=== PATIENT | male | born 1955 | race Caucasian/White ===

== ENCOUNTER 2024-06-19 21:06 | Inpatient (IN) | payer MEDICARE, SELFPAY ==
[2024-06-19] VITALS (35 sets, daily range): BP systolic 73–153; BP diastolic 48–106; BMI 31.6
[2024-06-19 18:15] LABS: Glucose - Point of Care 182 mg/dl (70-99)
[2024-06-19] MEDS: ATIVAN 1 MG IV (18:22)
--- NOTE | 2024-06-19 18:24 | ED.GENMED ---
History of Present Illness
General
Chief Complaint: CODE
Source: patient and ambulance crew
Exam Limitations: clinical condition and altered mental status
Time Seen by Provider: 06/19/24 18:06
Nursing documentation reviewed up to this point in time: agreed with
History of Present Illness
History of Present Illness:
Patient presents to the Emergency Department after witnessed syncopal episode at work. Per paramedics, patient presented to local auto shop, where he immediately passed out. Patient had no complaints prior to passing out. CPR started immediately
by bystanders. 911 was called. When paramedics arrived at scene, patient was found to be in ventricular fibrillation rhythm. Patient was given 8 rounds of epi, 450 mg of amiodarone, and shocked x 7, with spiritism of pulse, and approximately 20
minutes after passing out. Upon arrival, patient is found to be unresponsive to verbal or physical stimuli. Unable to obtain any further information at this time.
Past History
Past History
ED Past Medical History: HTN
ED Past Surgical History: None
Social History
Tobacco: Non-smoker
Alcohol: Daily
Review of Systems
Review of Systems
Allergies reviewed?: Yes
Unable to obtain full review of systems at this time due to: intubated
All Other Systems: Not applicable
Phy Exam
Physical Exam
Physical Exam:
Physical Exam
General: unresponsive to verbal or physical stimuli. overweight
Head: nc/at.
Neck: supple. no meningeal signs. ETT in place.
Heart: s1/s2 regular rate and rhythm, no murmur. equal radial pulses.
Lungs: equal breath sounds while being bagged
Abdomen: normal bowel sounds. mild distention
Neuro: unresponsive. noted to move LUE spontaneously.
Skin: no rash. diaphoretic
Extremities: no edema.
Course
Orders/Labs/Results
Orders:
Orders
06/19/24 Breakfast
NPO
Allow oral meds: No
Allow clear liquids: No
NPO with Ice Chips: No
Comment: may receive medications via tube if ordered
06/19/24 18:05
Chest X-ray Portable [CR Chest Portable - 1 View] Urgent
Comment:
Reason For Exam: post cardiac arrest, intubation
Reason Study Needs to be Portable: Unable to Transport
06/19/24 18:07
Electrocardiogram (*1) Urgent
Reason for Study: Tachycardia
EKG- Treatment ONCE
06/19/24 18:18
Electrocardiogram (*1) Urgent
Reason for Study: Chest Pain
Cardiac Monitoring- Treatment ONCE
EKG- Treatment ONCE
IV Insert/Care/Rem.- Treatment PRN
O2 Therapy [RESP] Urgent
Titrate/Wean O2 to maintain O2 sat greater than (%): 90
Special Instructions: Maintain sats >/=90%
Pulse Ox/spot Check [RESP] Urgent
Quantity: 1
Special Instructions: ON ROOM AIR
06/19/24 18:20
ABO2 Urgent
BBK Wristband Number:
Associate notified that ABO2 has been ordered: [id number]
Date: 06/19/24
Time: 18:56
Poultry Farmer ID: [id number]
Complete Blood Count/With Diff Urgent
Comprehensive Metabolic Panel Urgent
Magnesium Urgent
Comment: ADD ON
NT-proBNP Urgent
Comment: ADD ON
PT/INR [Prothrombin Time] Urgent
Troponin I Urgent
06/19/24 18:21
CT Head W/o Iv Contrast Urgent
Comment:
Reason For Exam: mental status change
Cervical Spine wo Contrast CT [CT Cervical Spine W/o Iv Contr] Urgent
Comment:
Reason For Exam: truama
06/19/24 18:22
Lorazepam [Ativan] 1 mg IV NOW STA
06/19/24 18:27
Propofol 1,000,000 Mcg/100 ml [Diprivan] 1,000,000 mcg in 100 ml IV NOW
Indication:: Light Sedation
Begin Infusion:: Now
Goal:: RASS 0 to -2
Maximum dose in mcg/kg/min:: 50
Initial dose based on RASS:: Yes
If RASS is:: +1 or pt hemodynamically unstable (SBP < 90mmHg), initiate at 10 mcg/kg/min
If RASS is:: +2, initiate at 20 mcg/kg/min
If RASS is:: greater than or equal to +3, initiate at 30 mcg/kg/min
Titration Instructions:: Titrate by 5-10 mcg/kg/min every 5 minutes until RASS 0 to -2 achieved.
Taper Instructions:: If RASS is at or below goal for 4 consecutive hours decrease infusion by
Taper Instructions:: 5-10 mcg/kg/min every 2 hours to off.
Over-sedation Instructions:: If CPOT 0-2 (at goal) AND RASS -3 to -5 (below goal) decrease sedative by
Over-sedation Instructions:: 50% first. If pain score remains at goal and RASS remains below goal in
Over-sedation Instructions:: 1 hour, decrease opioid infusion by 50%.
Notify provider:: immediately if patient exhibits signs/symptoms of propofol-related
Notify provider:: infusion syndrome.
Additional Instructions:: Patient MUST be mechanically ventilated and MUST receive analgesia.
Vecuronium [place] [Norcuron] 10 mg IV NOW STA
06/19/24 18:38
Add On- LAB Urgent
Tests Added?: ProBNP and magnesium
06/19/24 18:45
Amiodarone [Cordarone] 900 mg DEXTROSE 5% PVC-free BAG [D5W PVC-free BAG] 500 ml IV PER PROTOCOL
Initial Dose in mg/min:: 1
Duration of initial dose (hours):: 6
Subsequent dose in mg/min:: 0.5
Duration of subsequent dose (hours):: 18
Maximum dose in mg/min:: 1
Hold and notify provider if:: Heart rate < 60 BPM or SBP < 90 mmHg or MAP < 60 mmHg
NORepinephrine 4 MG/250 ML [Levophed] 4 mg in 250 ml IV PER PROTOCOL
Initial dose in mcg/min, then titrate:: 10
Titrate to keep:: SBP > 90 mmHg
Titrate by mcg/min:: 1-2 mcg/min
Frequency of titrations (minutes):: 5
Maximum dose in ICU in mcg/min:: 30
Maximum dose in IMU in mcg/min:: 8
Maximum dose in IVU in mcg/min:: 4
Begin to taper infusion when:: Remained at goal for 4hrs
Taper by mcg/min:: 1-2 mcg/min
Frequency of taper (minutes) if patient maintains goal:: 30
Taper to off?: Yes
If infusion off & no longer maintaining goal:: Contact Provider
06/19/24 18:58
Arterial Blood Gas Urgent
%Oxygen/Room Air: 90
06/19/24 19:17
Heparin 4,000 units IV NOW STA
Nursing to Place Non Medication Order As Directed
Physician Order: PTT 6 hours after initial start of Heparin infusion
Above order entered?: Yes
06/19/24 19:23
Lactate Level [Lactic Acid] Urgent
PTT Urgent
Comment: Obtain baseline before beginning heparin infusion if not already collected
06/19/24 19:30
Heparin 48981 Units/250 ml 25,000 units in 250 ml IV PER PROTOCOL
Weight to be used for heparin protocol in kilograms (kg):: 93
Protocol:: Cardiac Tx/Acute Coronary
PTT Goal Range to be used:: PTT 73 to 111 seconds
Order type:: Initial
INITIAL Infusion Dose (UNITS/KG/hr) & then follow protocol:: 12 units/kg/hr
Infusion Dose in UNITS/hr & then follow protocol (UNITS/hr):: 1,000
INFUSION RATE in mL/hr & then follow protocol (mL/hr):: 10
PTT less than or equal to 64 seconds:: Increase rate by 200 units/hr (+ 2 mL/hr)
PTT 64.1 to 72.9 seconds:: Increase rate by 100 units/hr (+ 1 mL/hr)
PTT 73 to 111 seconds:: Target Range. No change in rate.
PTT 111.1 to 130.9 seconds:: Decrease rate by 100 units/hr (- 1 mL/hr)
PTT 131 to 199.9 seconds:: HOLD for 1 hr. Then decrease rate by 200 units/hr (- 2 mL/hr)
PTT greater than or equal to 200 seconds:: HOLD for 2 hrs & Notify Provider. Then decrease by 200 units/hr (-
2 mL/hr)
Lab follow-up:: Each change, PTT q6h until 2 consecutive are therapeutic. Then PTT
daily.
06/19/24 19:40
Magnesium Sulfate 1 grams 0.9% Sodium Chloride 100 ml [Nss] 100 ml IV NOW
06/19/24 19:54
Triglycerides Urgent
06/19/24 20:20
Admit/Transfer Patient As Directed
Co-Sign Provider:
Level of Care: Inpatient admission
Assign to:: ICU
Physician / Group: Son
Diagnosis: Cardiac Arrest
Reason for Hospitalization: Cardiac Arrest
Expected length of stay greater than two midnights?: Yes
ELOS- Estimated Length of Stay in days: 5
I certify the patient meets the requirements for IP care: Yes
PRN Pain Medication Management As Directed
May give lesser potent ordered pain med per pt: Yes
preference::
Protocol:: Medication orders for pain may be administered in a
manner that supports deferring to patient preference
when the pt is:
- Requesting an ordered lesser potent pain medication.
Least to most potent pain medications are defined
as: acetaminophen < NSAID < tramadol < opioids
(morphine, oxycodone, hydromorphone).
- Requesting a lesser dose of the same medication IF
ORDERED.
- Requesting a less intrusive route of administration
if both routes are prescribed by the provider (PO <
IV).
06/19/24 20:21
Code Status As Directed
Resuscitation Status: Full Code
06/19/24 20:25
Echo 2D MMode Color/Doppler Stat
Reason for Study: cardiac arrest
Ventilator Initial Settings [RESP] Stat
Special Instructions: wean FiO2 to 0.3 as tolerated to keep O2 sats > 92%
06/19/24 20:49
Propofol 1,000,000 Mcg/100 ml [Diprivan] 1,000,000 mcg in 100 ml .ROUTE .STK-MED
06/19/24 20:56
Type+Screen Urgent
Labels That Talk[employer] Wristband Number:
06/19/24 21:17
Lactic Acid Q6H
0.9% Sodium Chloride 500 ml [Nss] 500 ml IV Q30M
Acetaminophen [Tylenol Oral Solution] 650 mg TUBE NOW STA
Acetaminophen [Tylenol/Feverall] 650 mg RECTAL Q6HPRN PRN
Buspirone [Buspar] 30 mg TUBE NOW STA
FOLic ACID [Folvite] 1 mg 0.9% Sodium Chloride 50 ml [Nss] 50 ml IV DAILYPRN
FentaNYL 1,000 MCG/100 ML [Sublimaze] 1,000 mcg in 100 ml IV PER PROTOCOL
Indication:: TTM Shivering Prot Step 2
Begin Infusion:: Other
Begin infusion when:: BSAS >/= 1 15 minutes after indicated step 1 bolus
Goal:: BSAS = 0, pain score </= 1, CPOT 0-2
Maximum dose in mcg/hr:: 300
Initial Dose in mcg/hr:: 25
Initial dose other:: initiate at dose indicated above OR titrate dose by 25 mcg/hr
Titration Instructions:: Titrate every 30 minutes if patient exhibits shivering (BSAS >/= 1) or
Titration Instructions:: signs of pain/discomfort (pain score >/= 2, CPOT >/= 3).
Titration Instructions:: Administer bolus dose and titrate by 25 mcg/hr.
Titration Instructions:: if BSAS >/= 1 30 minutes after beginning infusion with boluses,
Titration Instructions:: Proceed to Step 3. Continue to up titrate fentanyl as needed.
Taper Instructions:: If shivering and pain scores are at goal for 4 consecutive hours (BSAS = 0,
Taper Instructions:: pain score </= 1, CPOT 0-2): Decrease dose by 50 mcg/hr every 2 hours.
Taper Instructions:: When dose </= 50 mcg/hr may turn infusion off and consider as needed
Taper Instructions:: intermittent bolus doses only.
Notify provider:: immediately if pt exhibits: chest wall rigidity, hemodynamic instability,
Notify provider:: agitation/pain despite maximum dosing, pain when RASS below goal.
Additional Instructions:: if receiving sedation continue to up titrate analgesia first when available
Additional Instructions:: Patient MUST be mechanically ventilated.
Fentanyl Citrate/Pf [Sublimaze] 50 mcg IV [id number] PRN
Propofol 1,000,000 Mcg/100 ml [Diprivan] 1,000,000 mcg in 100 ml IV PER PROTOCOL
Indication:: TTM Shivering Prot Step 3
Begin Infusion:: Other
Begin infusion when:: BSAS >/= 1 30 minutes after beginning Fentanyl infusion with boluses
Goal:: BSAS 0 or RASS 0 to -2
Maximum dose in mcg/kg/min:: 50
Initial Dose in mcg/kg/min:: 10
Initial dose other:: Initiate at dose indicated above OR titrate dose by 5-10 mcg/kg/min
Titration Instructions:: Titrate by 5-10 mcg/kg/min every 5 minutes until BSAS 0 or RASS 0 to -2.
Titration Instructions:: when available, up titrate analgesia first.
Titration Instructions:: If BSAS >/=1 despite Propofol at maximum tolerated dose, proceed to Step 4.
Taper Instructions:: If BSAS or RASS is at or below goal for 4 consecutive hours decrease
Taper Instructions:: dose by 5-10 mcg/kg/min every 2 hours.
Over-sedation Instructions:: If CPOT 0-2 (at goal) AND RASS -3 to -5 (below goal) decrease sedative by
Over-sedation Instructions:: 50% first. If pain score remains at goal and RASS remains below goal in
Over-sedation Instructions:: 1 hour, decrease opioid infusion by 50%.
Notify provider:: immediately if patient exhibits signs/symptoms of propofol-related
Notify provider:: infusion syndrome.
Additional Instructions:: Patient MUST be mechanically ventilated.
Vecuronium [place] [Norcuron] 9 mg IV Q1HPRN PRN
Vecuronium [place] [Norcuron] 60 mg 0.9% Sodium Chloride 250 ml [Nss] 190 ml IV PER PROTOCOL
06/19/24 21:17
Electrocardiogram (*1) Urgent
Reason for Study: Other
Other Reason for Exam: cardiac arrest
CARDIOLOGY CONSULT Routine
Consulting Provider: Sai Steve
Was physician already notified: Yes
Reason for consult: Cardiac Arrest
Case Management Consult Once
Case Management Consult: Discharge Planning
Case Management Consult Once
Case Management Consult: Other
Comment: Substance abuse counseling
DIETARY CONSULT Routine
Reason for Consult: Nutrition support, possible refeeding guidelines
Video Systems Engineer Consult Urgent
Consulting Provider: Thai Farnsworth
Was physician already notified: Yes
Reason for consult: Cardiac Arrest
NEUROLOGY CONSULT Routine
Consulting Provider: Sajan Adamson
Was physician already notified: Yes
Reason for consult: Cardiac Arrest
EEG Routine Routine
Reason for Exam: change in mental status
HCG, Urine Qualitative Screen Urgent
Comment: if female and less than 65 years old
Prealbumin (Transthyretin) Routine
Triglycerides Routine
Comment: baseline levels with propofol infusion
Urinalysis Routine
Heparin Protocol- PTT Orders As Directed
PTT per Heparin protocol: -Obtain CBC and baseline PTT - if not already collected.
-Obtain PTT 6 hours from start of infusion. Then, every 6 hours until 2 consecutive
PTT's are therapeutic. Then, PTT Daily.
-With each rate change, obtain PTT every 6 hours until 2 consecutive PTT's are
therapeutic. Then, PTT Daily.
Activity As Directed
Activity Level: Bedrest
Comment: obtain Sport bed, Maintain HOB 30 degrees
Arterial Line As Directed
Bedside Glucose Monitoring As Directed
Frequency: Other frequency
Other frequency: Q1 hour x 4 hours
Additional Instructions:: Contact provider to initiate Critical Care Glycemic Protocol:
- if glucose is greater than or equal to 160 mg/dL for 2 consecutive checks
OR
- if glucose is greater than or equal to 180 mg/dL once:
Catheter- Indwelling As Directed
Reason for insertion: I&O's Critical Care
Comment: temperature sensing Campos catheter with hourly urine output
Central Line As Directed
Comment: do not use central line for cold fluids
EKG with chest pain [ECG as needed] As Directed
ECG as needed for:: Chest Pain
Gastric Lavage As Directed
Route: Nasogastric Tube/ Orogastric Tube
Irrigant: Purified/Distilled Water
Amount in mls: 250-500ml iced water
Remove irrigant after __min: 10
Gastric lavage directions: - Chilled gastric lavage: instill 250-500mL iced water, clamp for 10-15 minutes
then connect gastric tube to suction.
- Repeat for total volume of 30mL/kg. Maximum 3 liters
- Discontinue once TTM device is initiated
Gastrointestinal Tubes As Directed
Type: [place] sump
To suction?: Yes
Type of suction: Low intermittent
Irrigate tube?: Yes
Irrigant: Tap Water
Frequency: Q4H
Amount in mls: 30
Irrigation Directions: Irrigate Q4H and PRN
Comment: insert nasogastric or orogastric tube
Head of Bed-Restrictions As Directed
Elevation Level: 30 degress
Frequency: At all times
INT (Intravenous Needle Therapy) As Directed
Comment: peripheral IV required, consider 2 peripheral IV lines
Intake/ Output As Directed
Frequency: q1h
Comment: hourly urine output
MSAS SCORE As Directed
MSAS Score 0-4: Repeat MSAS every 2 hours until 0-4 for three consecutive assessments, then every 4 hours x 48
hours.
MSAS Score 5-7: For MILD withdrawl symptoms. Repeat MSAS and RASS every 2 hours
MSAS Score 8-11: For MODERATE withdrawal symptoms. Repeat MSAS and RASS every 1 hour. Consider ICU or IMU
level of care.
MSAS Score > 11: For SEVERE withdrawal symptoms. Repeat MSAS and RASS every 1 hour. Notify provider, consider
ICU level of care.
MSAS Additional Instructions: If no improvement or no decrease in score from severe to moderate within 12
hours, consult psychiatry
MSAS Notify Provider: Notify provider if patient requires more than 10 mg of Lorazepam in eight hour period.
Neurological Checks As Directed
Frequency: q4h
Additional Instructions:: Obtain baseline, then every 4 hours
Notify MD As Directed
Notify physician if: BSAS >=1 despite maximum tolerated dose of propofol and proceeding to step 4 of shivering
protocol to change pain and sedation orders to deep sedation protocol and discontinue
current Fentanyl and Propofol orders.
Notify MD As Directed
Notify physician if: PTT is greater than or equal to 200.
Notify MD As Directed
Notify physician if: serum magnesium less than 3.0 mg/dL
Nursing to Place Non Medication Order As Directed
Physician Order: ABG every 12 hours x [address] Non Medication Order As Directed
Physician Order: order each lab below for Urgent every 6 hours x 6
CBC with Diff
Complete Metabolic Panel
Magnesium
Phosphorus
CK
CKMB
Troponin
Lactate
Pneumatic Compression Sleeves As Directed
Type: Knee high
Comment: bilateral
Pre-induction Neuromuscular Assessment As Directed
Pre-induction Neuromuscular Assessments: -Confirm Louis Agitation Sedation Scale (RASS) of -3 to -5
-Document:
--GSC ([place] Coma Scale)
--Corneal reflex
--Train of four
Test Result ONCE
Shivering Protocol for Targeted Temperature Management As Directed
Instructions:: Use stepwise approach for management of shivering.
Bedside shivering assessment score (BSAS) frequency:: Q 30 minutes until target temperature achieved then Q 1
hour and PRN
Step 1:: Fentanyl or Meperidine intermittent bolus doses
If BSAS >=/ 1 15 minutes after bolus(es), proceed to Step 2.
Step 2:: Begin/increase Fentanyl infusion + continue Fentanyl boluses
If BSAS >/= 1 after 2 analgesic bolus doses and Fentanyl infusion on for 30 minutes,
proceed to Step 3.
Step 3:: Begin Propofol infusion + continue Fentanyl infusion + Fentanyl boluses
If BSAS >=/1 despite Propofol at maximum tolerated dose, proceed to Step 4.
Step 4:: NMBA intermittent bolus doses.
Contact provider to update pain and sedation orders/obtain orders for DEEP SEDATION.
If BSAS >/= 1 after 2 NMBA bolus doses within 3 hours, proceed to Step 5.
Step 5:: Begin NMBA infusion + continue NMBA boluses + deep sedation.
Continuous IV analgesia and sedation must be ordered.
Additional Instructions:: When beginning Step 4 (NMBA bolus doses), obtain orders for DEEP SEDATION and
discontinue Fentanyl and Propofol orders from steps 1, 2, and 3.
Skin Care As Directed
Type of Skin Care: skin checks every 2 hours
Specialty Mattress As Directed
Type of Mattress: Other
Other type of speciality mattress: Sport Bed
Targeted Temperature Management Cooling Phase As Directed
Goal Temp:: 96.8 F (36 C)
Directions: - Wrap patient in surface cooling pads and attach to temperature management device.
- Maintain patient at goal temperature for 24 hours.
- Once device is initiated, discontinue use of cooled fluids and gastric lavage unless directed to
continue.
Targeted Temperature Management Normothermia Phase As Directed
Active Normothermia Instructions:: Maintain surface cooling device and set temperature to 97.4 F for 48 hours
post rewarming.
Targeted Temperature Management Rewarming Phase As Directed
Rewarming Directions:: -Increase temp by 0.33 degrees F every hour per automatic rewarming mode until temp
reaches 97.4 degrees F
-If using continuous NMBA, turn off when temperature reaches 97.0 degrees F
-Once normothermia target temperature is achieved, wean sedation to maintain a RASS
level of 0 to -2, refer to Pain, Agitation, Sedation guidelines
-Discontinue previous serial labs then
-CMP, CBC, Mag, Phos, and Lactate every 4 hours x 6
-Stop electrolyte replacement 6 hours prior to rewarming (unless electrolyte levels
critical)
Vital Signs As Directed
Frequency: Other
Additional Instructions:: q30min x4 then q1h including core temp via TTM device
Weight As Directed
Frequency: Daily
DX Deep Vein Thrombosis Video Routine
06/20/24 00:00
Acetaminophen [Tylenol Oral Solution] 650 mg TUBE Q6
Buspirone [Buspar] 30 mg TUBE Q8
Thiamine Injection 200 mg IV Q8
06/20/24 02:27
Protime/PTT Urgent
Is the patient on Heparin?: Yes
06/20/24 03:17
Lactic Acid Q6H
06/20/24 06:00
Magnesium IN AM
NT-proBNP IN AM
PTT IN AM
Prealbumin (Transthyretin) IN AM
Prothrombin Time IN AM
CR Chest Portable - 1 View DAILY
Comment:
Reason For Exam: cardiac arrest
Reason Study Needs to be Portable: Patient Unstable
06/20/24 08:00
Carboxymethylcellulose [Refresh Celluvisc Gel] 1 drops OPHTH BID
FOLic ACID [Folvite] 1 mg PO DAILY
Pantoprazole [Protonix IV] 40 mg IV DAILY
06/20/24 09:17
Lactic Acid Q6H
06/20/24 15:17
Lactic Acid Q6H
06/21/24 06:00
Complete Blood Count/No Diff Q2D
Comment: notify provider: Platelet count < 130,000 or decrease by 50% from baseline
NT-proBNP IN AM
PTT IN AM
Prealbumin (Transthyretin) IN AM
Prothrombin Time IN AM
CR Chest Portable - 1 View DAILY
Comment:
Reason For Exam: cardiac arrest
Reason Study Needs to be Portable: Patient Unstable
06/22/24 06:00
NT-proBNP IN AM
PTT IN AM
Prealbumin (Transthyretin) IN AM
Prothrombin Time IN AM
Triglycerides Q3D
Comment: every 72 hours while patient is on propofol
CR Chest Portable - 1 View DAILY
Comment:
Reason For Exam: cardiac arrest
Reason Study Needs to be Portable: Patient Unstable
06/23/24 06:00
Complete Blood Count/No Diff Q2D
Comment: notify provider: Platelet count < 130,000 or decrease by 50% from baseline
06/23/24 08:00
Thiamine HCl [Vitamin B1] 100 mg PO BID
06/25/24 06:00
Complete Blood Count/No Diff Q2D
Comment: notify provider: Platelet count < 130,000 or decrease by 50% from baseline
Triglycerides Q3D
Comment: every 72 hours while patient is on propofol
06/27/24 06:00
Complete Blood Count/No Diff Q2D
Comment: notify provider: Platelet count < 130,000 or decrease by 50% from baseline
06/28/24 06:00
Triglycerides Q3D
Comment: every 72 hours while patient is on propofol
06/29/24 06:00
Complete Blood Count/No Diff Q2D
Comment: notify provider: Platelet count < 130,000 or decrease by 50% from baseline
07/01/24 06:00
Complete Blood Count/No Diff Q2D
Comment: notify provider: Platelet count < 130,000 or decrease by 50% from baseline
07/03/24 06:00
Complete Blood Count/No Diff Q2D
Comment: notify provider: Platelet count < 130,000 or decrease by 50% from baseline
07/05/24 06:00
Complete Blood Count/No Diff Q2D
Comment: notify provider: Platelet count < 130,000 or decrease by 50% from baseline
Abnormal Lab Results
06/19/24 06/19/24 06/19/24
18:04 18:20 18:58
WBC 19.0 H 10^3/uL
(4.8-10.8)
RBC 4.58 L 10^6/uL
(4.70-6.10)
MCV 102.0 H fL
(80.0-94.0)
MCH 34.3 H pg
(27.0-31.0)
MPV 11.6 H fL
(7.4-10.4)
Abs Immat Gran (auto) 0.8 H 10^3/uL
(0-0.05)
Absolute Neuts (auto) 11.9 H 10^3/uL
(1.4-6.5)
Absolute Lymphs (auto) 5.2 H 10^3/uL
(1.2-3.4)
Immature Gran % 4.2 H %
(0-0.5)
PT 18.7 H Sec
(11.4-14.6)
pH 7.16 L*
(7.35-7.45)
pCO2 70 H mmHg
(35-48)
pO2 72 L mmHg
(83-108)
ABG O2 Sat (Measured) 91.7 L %
(94-98)
Chloride 97 L mmol/L
(98-107)
Glucose 244 H mg/dl
(70-99)
Lactic Acid
Magnesium 1.1 L mg/dl
(1.6-2.3)
Total Bilirubin 1.6 H mg/dl
(0.2-1.3)
AST 339 H U/L
(17-59)
ALT 157 H U/L
(0-50)
Troponin I 0.064 H* ng/ml
Triglycerides
POC Glucose 182 H mg/dl
(70-99)
06/19/24 06/19/24
19:23 19:54
WBC
RBC
MCV
MCH
MPV
Abs Immat Gran (auto)
Absolute Neuts (auto)
Absolute Lymphs (auto)
Immature Gran %
PT
pH
pCO2
pO2
ABG O2 Sat (Measured)
Chloride
Glucose
Lactic Acid 4.9 H* mmol/L
(0.7-2.0)
Magnesium
Total Bilirubin
AST
ALT
Troponin I
Triglycerides 170 H mg/dl
(10-149)
POC Glucose
06/19/24 18:20
06/19/24 18:20
Vital Signs
Initial and Last Documented VS:
Initial Vital Signs
Pulse Resp BP Pulse Ox
85 18 120/85 89
06/19/24 18:11 06/19/24 18:11 06/19/24 18:11 06/19/24 18:11
Last Documented Vital Signs
Temp Pulse Resp BP Pulse Ox
96.8 F L 100 21 147/66 94
06/19/24 19:14 06/19/24 20:45 06/19/24 20:45 06/19/24 20:45 06/19/24 20:45
Procedures
Central Line
Right Femoral:
Indication for procedure:: Cooling protocol
Procedure completed by: Da Gutierrez M.D.
Consent form signed: No
If no, reason: Emergency procedure
Central line lumen: triple
Number of attempts: 1
Central line complications: none
Sterile dressing applied?: Yes
MDM/Problems Addressed
MDM/Problems Addressed:
Accu-Chek noted.
Initial EKG upon arrival does not indicate ST elevation. Discussed with on-call Speech And Hearing Director attending, Dr. Francois. Does not feel the patient requires urgent cardiac catheterization. Recommends medical evaluation treatment, including potential heparin
protocol, if initial CT head does not indicate acute bleed.
Patient sedated with Ativan and propofol infusion, as well as rocuronium.
CT head: no acute findings.
Pt will be admitted to ICU for further evaluation and treatment.
Pt evaluated by admitting hospitalist - request central line placement, per cooling protocol.
Critical care statement: A total of 60 minutes of critical care time was provided for this patient. This includes management of unstable vital signs, evaluation of the patient at bedside, reviewing the patient's pertinent medical records, discussion
with consultants, review of old EKGs and review of pertinent medical records. This time with separate from time utilized to perform the aforementioned documented procedures
*Critical Care Note
Total Time (30-74mins, 75-104mins- exclusive of procedures): 60 min
ED Attending Note
-
Portions of this chart may have been created with voice recognition software.� Occasional wrong word or��sound alike� substitutions may have occurred due to the inherent limitations of voice recognition software.
Discharge Plan
Departure
Patient Disposition: Admit
Date of Disposition: 06/19/24
Time of Disposition: 18:39
Admit to: ICU
Presentation/result/management discussed w/ accepting MD/DO: Hospitalist
Discharge Problem:
Cardiac arrest with ventricular fibrillation
Interventions
Interventions:
*Risk Screen - Suicide Last Done: 06/19/24 19:04
*General Assessment Last Done: 06/19/24 19:04
*Neglect/Abuse Screening Last Done: 06/19/24 19:04
*ED COVID-19 Vaccine History Last Done: 06/19/24 19:04
ED- Cardiac Assessment Last Done: 06/19/24 19:04
ED- Pulmonary Assessment Last Done: 06/19/24 19:04
[2024-06-19 18:30] LABS: % Basophils 0.6 % (0-2); % Eosinophils 1.7 % (0-6); % Immature Granulocytes 4.2 % (0-0.5); % Lymphocytes 27.6 % (20.5-51.1); % Monocytes 3.2 % (1.7-9.3); % Neutrophils 62.7 % (42.2-75.2); Absolute Basophils 0.1 10^3/uL (0-0.2); Absolute Eosinophils 0.3 10^3/uL (0-0.7); Absolute Immature Granulocytes 0.8 10^3/uL (0-0.05); Absolute Lymphocytes 5.2 10^3/uL (1.2-3.4); Absolute Monocytes 0.6 10^3/uL (0.1-0.6); Absolute Neutrophils 11.9 10^3/uL (1.4-6.5); Hematocrit 46.7 % (39.0-52.0); Hemoglobin 15.7 g/dL (13.0-18.0); Mean Corp Hgb Conc. 33.6 g/dL (33.0-37.0); Mean Corpuscular Hgb 34.3 pg (27.0-31.0); Mean Platelet Volume 11.6 fL (7.4-10.4); Nucleated Red Blood Cells % 0.2 % (-); Platelet Count 162 10^3/uL (130-400); Red Blood Cell Count 4.58 10^6/uL (4.70-6.10); Red Cell Dist. Width 12.2 % (11.5-14.5)
[2024-06-19] MEDS: DIPRIVAN 100 IV (18:30)
[2024-06-19] MEDS: NORCURON 10 MG IV (18:31)
[2024-06-19 18:36] LABS: INR 1.58; PT 18.7 Sec (11.4-14.6)
[2024-06-19] MEDS: LEVOPHED 250 IV ×2 (18:40→23:10)
--- NOTE | 2024-06-19 18:57 | PHANOTE ---
med rec tech(06/19/24)-patient unable to be interviewed, used [facility] and [facility] to create and confirm medication list.
[2024-06-19 19:00] LABS: ALT (SGPT) 157 U/L (0-50); AST (SGOT) 339 U/L (17-59); Albumin 4.1 g/dl (3.5-5.0); Alkaline Phosphatase 101 U/L (38-126); Blood Urea Nitrogen 10 mg/dl (9-20); Carbon Dioxide 24 mmol/L (22-30); Chloride 97 mmol/L (98-107); Glucose 244 mg/dl (70-99); Potassium 3.6 mmol/L (3.5-5.1); Sodium 142 mmol/L (135-145); Total Bilirubin 1.6 mg/dl (0.2-1.3); eGFR > 60.00
[2024-06-19 19:08] LABS: B.E. -5.5 mmol/L; O2 Saturation % 91.7 % (94-98); PCO2 70 mmHg (35-48); PO2 72 mmHg (83-108)
[2024-06-19 19:12] LABS: pH 7.16 (7.35-7.45)
[2024-06-19 19:17] LABS: Troponin I 0.064 ng/ml
[2024-06-19] MEDS: CORDARONE 518 MG IV (19:45)
[2024-06-19 19:51] LABS: APTT 32.6 Sec (23.4-35.0)
[2024-06-19 19:54] LABS: Magnesium 1.1 mg/dl (1.6-2.3)
[2024-06-19 19:56] LABS: Lactic Acid 4.9 mmol/L (0.7-2.0)
[2024-06-19] MEDS: MAGNESIUM SULFATE 102 GRAMS IV (20:04)
[2024-06-19 20:10] LABS: NT-proBNP 84.4 pg/ml
[2024-06-19 20:26] LABS: Triglycerides 170 mg/dl (10-149)
[2024-06-19] MEDS: HEPARIN 25000 UNITS/250 ML IV (20:26)
[2024-06-19] MEDS: HEPARIN 4000 UNITS IV (20:27)
--- NOTE | 2024-06-19 20:33 | HPS.HSE ---
Family Physician
-
Family Physician: [facility]
Chief Complaint
-
Cardiac Arrest
History of Present Illness
Patient is a 69y M with PMH significant for A-Fib, prostate cancer and alcohol use disorder who presents to ED after witnessed nqe-dk-xvdtrkor cardiac arrest. History obtained from ED staff and family at the bedside. 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 A bystander was a nurse and promptly started CPR. 911 was called and on EMS arrival patient was noted to be in ventricular fibrillation. ACLS was provided including 8 rounds of epinephrine
and 7 shocks. ROSC achieved approximately 20 minutes after initial collapse. Patient was brought to the ED for further evaluation and treatment.
At the time of my examination in the ED, patient is unresponsive on propofol, levophed and amiodarone infusion.
states that patient has complained of increased heartburn recently.
He has had some discomfort / swelling in the legs and has been sleeping with them elevated.
No reported chest pain, palpitations, SOB, etc.
No recent cough, fevers / chills, GI symptoms, etc.
No prior history of ME, CVA, etc.
Medical History
Past Medical History
Past Medical History: Reports Other
Additional Past Medical History:
Atrial Fibrillation
Hypertension
Long QT Syndrome
Prostate Cancer
Obesity
Past Surgical History: Reports Other
Additional Past Surgical History:
Prostatectomy
Appendectomy
Knee Arthroscopy
Social History
Tobacco: Former Smoker (Quit smoking 35 years ago. Approx 15 pack years total use.)
Alcohol: Daily (Drinks vodka daily. is not certain of amount, but significant intake daily.)
Drug: None
Personal:
Living: With Family
Family History
Family History: Other (Father: CAD, Lung Cancer Mother: Lung Cancer)
Allergies / Home Medications
Allergies reflects when Allergies were last updated in [employer].
Home Medications with original date entered in [employer]
Allergy/Medication List:
Allergies
Allergy/AdvReac Type Severity Reaction Status Date / Time
No Known Allergies Allergy Unverified 04/19/23 15:30
Home Medications
metoprolol succinate 25 mg tablet,extended release 24 hr 25 mg PO DAILY #30 tabs 04/20/23
magnesium oxide 600 mg PO DAILY 06/19/24
rivaroxaban 20 mg tablet (Xarelto) 20 mg PO DAILY 06/19/24
therapeutic multivitamin 1 tab PO DAILY 06/19/24
Review of Systems
-
Unable to obtain full review of systems at this time due to: Patient Intubation
Physical Exam
Vital Signs
Vital Signs
Temp Pulse Resp BP Pulse Ox
96.8 F L 91 18 73/48 96
06/19/24 19:14 06/19/24 19:46 06/19/24 19:46 06/19/24 19:46 06/19/24 19:10
Physical Exam
General: Other (69y M unresponsive on ventilator.)
HEENT: Other (ETT and OGT in place. Scant bloody sputum in ETT tubing. Thick neck. No appreciable JVD.)
Respiratory: Other (Decreased BS bilaterally.)
Cardiac: S1/S2 and Regular Rhythm; No Murmur
GI: Non Tender, Non Distended, Normal Bowel Sounds and Other (Obese)
Musculoskeletal: No Clubbing, No Cyanosis and No Edema
Neuro: Sedated
Laboratory Results
-
06/19/24 18:20
06/19/24 18:20
Laboratory Results
PT 18.7 Sec (11.4-14.6) H 06/19/24 18:20
INR 1.58 06/19/24 18:20
APTT 32.6 Sec (23.4-35.0) 06/19/24 19:23
pH 7.16 (7.35-7.45) L* 06/19/24 18:58
pCO2 70 mmHg (35-48) H 06/19/24 18:58
pO2 72 mmHg (83-108) L 06/19/24 18:58
HCO3 25.0 mmol/L (21-28) 06/19/24 18:58
Lactic Acid 4.9 mmol/L (0.7-2.0) H* 06/19/24 19:23
Total Bilirubin 1.6 mg/dl (0.2-1.3) H 06/19/24 18:20
AST 339 U/L (17-59) H 06/19/24 18:20
ALT 157 U/L (0-50) H 06/19/24 18:20
Alkaline Phosphatase 101 U/L (38-126) 06/19/24 18:20
Troponin I 0.064 ng/ml H* 06/19/24 18:20
Impression/Plan
-
A/P: 69y M with PMH significant for A-Fib and alcohol use disorder who presents to ED after hey-il-zebwwway arrest.
Cardiac Arrest
Ventricular Fibrillation
History of Prolonged QT
Lactic Acidosis secondary to the above
- Admit to ICU for further evaluation and treatment.
- Vent support, sedation if needed, pressor support if needed.
- IV Amiodarone protocol.
- Targeted temperature management protocol.
- Follow for cognitive recovery after re-warming.
- Line Assembler and Neurology evaluations for additional recommendations.
- Differential etiology of arrest includes acute ischemia / CAD, arrhythmia due to long QT, etc.
ACS
- No STEMI on initial EKG. Troponin minimally elevated after arrest, CPR, defibrillations, etc.
- IV heparin for now.
- Cardiology evaluation as noted above.
- Will benefit from eventual ischemic evaluation depending on recovery process.
Pulmonary Edema
- Noted on CXR and CT neck.
- Patient will likely benefit from diuresis once hemodynamically more stable.
- Check Echo.
- Cardiology eval as noted above.
Paroxysmal Atrial Fibrillation
- Currently in sinus rhythm with 1st degree AV block.
- Hold Xarelto acutely - on IV heparin for now.
- Monitor on telemetry.
- On IV Amio at present. Add rate-control agents if needed.
Alcohol Use Disorder
Hypomagnesemia
- reports significant daily EtOH intake.
- No history of withdrawal syndromes, seizures, etc.
- Currently on propofol.
- Follow MSAS - any withdrawal symptoms should be controlled with current sedation, cooling regimen, etc.
- Follow and replace electrolytes as needed.
History of Prostate Cancer
- s/p prostatectomy
- Campos in place.
DVT Prophylaxis: On IV Heparin
Code Status: Full
[2024-06-19] MEDS: SUBLIMAZE 100 IV (22:00)
--- NOTE | 2024-06-19 22:00 | PTCARENOTE ---
Pt. arrived to ICU from ED intubated on ventilator. TTM protocol initiated immediately upon arrival to ICU. Pt. arrived to ICU on propofol gtt (step 3 of shivering protocol). Unresponsive. Core temp 98.6. Arctic Sun set to goal of 96.8. Pt.
currently in sinus rhythm. Amiodarone an heparin drips infusing. Levophed gtt infusing for BP support. Pt. currently on ventilator. Ventilator settings verified. Lungs sound crackly at bases. Pt. has OG tube to LIS. Campos catheter in place. No open
wounds on patient's skin noted. Legs appeared mottled. Discussed plan of care with patient's family. Vital signs stable at this time.
[2024-06-19 22:02] LABS: Glucose - Point of Care 211 mg/dl (70-99)
[2024-06-19] MEDS: BUSPAR 30 MG TUBE (22:22)
[2024-06-19] MEDS: TYLENOL ORAL SOLUTION 650 MG TUBE (22:22)
[2024-06-19] MEDS: NOVOLIN R 4 UNITS IV (22:54)
[2024-06-19] MEDS: NOVOLIN R INSULIN INFUSION 100 IV (22:55)
[2024-06-19 23:01] LABS: Glucose - Point of Care 223 mg/dl (70-99)
--- NOTE | 2024-06-19 23:08 | W.PN.UPDATE ---
Update Note
Progress Note Update
Procedure Note: Arterial Line�
� Right Wrist Arrow 20 (10/31)�
Diagnosis:��VFIB, cardiac arrest
IV Line Comments: Uneventful Procedure�
Jimmie's test completed pre-procedure: Yes�
A-Line Comments: Sterile technique as per standard protocol, Ultrasound guided insertion�
Functioning A-line in situ: Yes�
A-line Insertion Start Time:��0
A-line in at:��2210
[2024-06-19 23:11] LABS: Creatine Phosphokinase 127 U/L (55-170); Phosphorus 6.7 mg/dl (2.5-4.5)
[2024-06-19 23:33] LABS: CKMB 2.2 ng/ml (0.0-2.4)
[2024-06-20] VITALS (17 sets, daily range): BP systolic 74–161; BP diastolic 67–122; PULSE 2–92; BMI 33.5
[2024-06-20 00:02] LABS: B.E. -4.5 mmol/L; HCO3 21.1 mmol/L (21-28); PCO2 40 mmHg (35-48); PO2 231 mmHg (83-108); pH 7.33 (7.35-7.45)
[2024-06-20 00:03] LABS: O2 Therapy 80&
[2024-06-20 00:17] LABS: Lactic Acid 3.3 mmol/L (0.7-2.0)
[2024-06-20 00:25] LABS: Glucose - Point of Care 221 mg/dl (70-99)
[2024-06-20] MEDS: TYLENOL ORAL SOLUTION 650 MG TUBE ×3 (00:28→12:24)
[2024-06-20] MEDS: THIAMINE INJECTION 200 MG IV ×3 (00:28→16:37)
[2024-06-20] MEDS: BUSPAR 30 MG TUBE (00:28)
--- NOTE | 2024-06-20 00:30 | PTCARENOTE ---
Pt. remains on levophed infusion. Blood pressure boarderline of goal. Spoke to LANDSCAPE ENGINEER, will possibly add another vasopressor. Pt. started on glycemic protocol for blood glucose >180. TTM goal reached at 23:20.
[2024-06-20 00:38] LABS: % Basophils 0.4 % (0-2); % Immature Granulocytes 0.7 % (0-0.5); % Lymphocytes 1.9 % (20.5-51.1); % Monocytes 2.4 % (1.7-9.3); % Neutrophils 94.6 % (42.2-75.2); Absolute Basophils 0.1 10^3/uL (0-0.2); Absolute Immature Granulocytes 0.2 10^3/uL (0-0.05); Absolute Lymphocytes 0.5 10^3/uL (1.2-3.4); Absolute Monocytes 0.6 10^3/uL (0.1-0.6); Absolute Neutrophils 23.2 10^3/uL (1.4-6.5); Hematocrit 42.6 % (39.0-52.0); Mean Corp Hgb Conc. 35.2 g/dL (33.0-37.0); Mean Corpuscular Volume 96.6 fL (80.0-94.0); Mean Platelet Volume 11.4 fL (7.4-10.4); Nucleated Red Blood Cells % 0 % (-); Platelet Count 173 10^3/uL (130-400); Red Blood Cell Count 4.41 10^6/uL (4.70-6.10); Red Cell Dist. Width 12.3 % (11.5-14.5); White Blood Cell Count 24.6 10^3/uL (4.8-10.8)
[2024-06-20 01:03] LABS: Prealbumin (Transthyretin) 17.3 mg/dl (17.6-36.0)
[2024-06-20 01:13] LABS: ALT (SGPT) 147 U/L (0-50); AST (SGOT) 368 U/L (17-59); Albumin 3.8 g/dl (3.5-5.0); Alkaline Phosphatase 93 U/L (38-126); Blood Urea Nitrogen 17 mg/dl (9-20); Calcium 8.6 mg/dl (8.4-10.2); Carbon Dioxide 18 mmol/L (22-30); Chloride 99 mmol/L (98-107); Estimated Creatinine Clearance 62 ml/min; Glucose 209 mg/dl (70-99); Magnesium 1.1 mg/dl (1.6-2.3); Phosphorus 3.8 mg/dl (2.5-4.5); Potassium 3.1 mmol/L (3.5-5.1); Sodium 137 mmol/L (135-145); Total Bilirubin 1.9 mg/dl (0.2-1.3); Total Protein 6.5 g/dl (6.3-8.2); eGFR > 60.00
[2024-06-20 01:14] LABS: Total CK 948 U/L (55-170)
[2024-06-20] MEDS: DIPRIVAN 100 IV ×2 (01:17→06:21)
[2024-06-20] MEDS: ADRENALIN 250 IV (01:18)
[2024-06-20 01:24] LABS: Glucose - Point of Care 180 mg/dl (70-99)
[2024-06-20] MEDS: KCL 100 IV ×2 (01:31→10:21)
[2024-06-20 01:43] LABS: CKMB 28.6 ng/ml (0.0-2.4)
[2024-06-20] MEDS: LEVOPHED 250 IV ×2 (01:46→05:46)
[2024-06-20] MEDS: MAGNESIUM SULFATE 100 IV (01:46)
[2024-06-20 02:15] LABS: Glucose - Point of Care 181 mg/dl (70-99)
[2024-06-20 02:44] LABS: INR 1.58; PT 18.7 Sec (11.4-14.6)
[2024-06-20 03:05] LABS: Lactic Acid 4.3 mmol/L (0.7-2.0)
[2024-06-20 03:13] LABS: Glucose - Point of Care 124 mg/dl (70-99)
[2024-06-20 03:32] LABS: Urine Albumin 2+ (Neg - Trace); Urine Bilirubin 1+ (Negative); Urine Color Amber; Urine Glucose Trace (Negative); Urine Ketone Trace (Negative); Urine Leukocyte 1+ (Negative); Urine Nitrite Positive (Negative); Urine Occult Blood 4+ (Negative); Urine Specific Gravity 1.025 (<1.030); Urine Urobilinogen 1+ (Neg - 1+)
[2024-06-20 03:33] LABS: Urine Character Cloudy (Clear)
[2024-06-20 04:11] LABS: Glucose - Point of Care 97 mg/dl (70-99)
[2024-06-20 04:13] LABS: Urine Mucus Many; Urine Squamous Cell >30 /LPF (Few)
[2024-06-20 04:14] LABS: Urine Amorphous Seen; Urine Calcium Oxalate Crystals Seen; Urine Hyaline Cast >15 /LPF (0-2); Urine Urothelial Cell >30 /LPF (FEW)
[2024-06-20 04:15] LABS: Urine Bacteria Many (Negative); Urine Red Blood Cell >100 /HPF (0-2)
[2024-06-20 04:16] LABS: Urine White Cell >100 /HPF (0-5)
[2024-06-20 04:22] LABS: Urine Granular Cast >15 /LPF (0); Urine Yeast Moderate (Negative)
[2024-06-20 05:10] LABS: Glucose - Point of Care 126 mg/dl (70-99)
[2024-06-20 06:19] LABS: Glucose - Point of Care 112 mg/dl (70-99)
[2024-06-20 06:23] LABS: Hematocrit 39.8 % (39.0-52.0); Hemoglobin 14.2 g/dL (13.0-18.0); Mean Corp Hgb Conc. 35.7 g/dL (33.0-37.0); Mean Corpuscular Hgb 34.9 pg (27.0-31.0); Mean Corpuscular Volume 97.8 fL (80.0-94.0); Mean Platelet Volume 11.9 fL (7.4-10.4); Platelet Count 151 10^3/uL (130-400); Red Blood Cell Count 4.07 10^6/uL (4.70-6.10); White Blood Cell Count 21.9 10^3/uL (4.8-10.8)
[2024-06-20 06:28] LABS: INR 1.43; PT 17.3 Sec (11.4-14.6)
[2024-06-20 06:30] LABS: APTT 88.3 Sec (23.4-35.0)
[2024-06-20 06:32] LABS: Lactic Acid 3.7 mmol/L (0.7-2.0)
[2024-06-20 06:43] LABS: ALT (SGPT) 127 U/L (0-50); AST (SGOT) 251 U/L (17-59); Albumin 3.2 g/dl (3.5-5.0); Alkaline Phosphatase 84 U/L (38-126); Blood Urea Nitrogen 20 mg/dl (9-20); Calcium 8.3 mg/dl (8.4-10.2); Carbon Dioxide 21 mmol/L (22-30); Chloride 98 mmol/L (98-107); Estimated Creatinine Clearance 58 ml/min; Glucose 134 mg/dl (70-99); Magnesium 2.8 mg/dl (1.6-2.3); Phosphorus 1.9 mg/dl (2.5-4.5); Potassium 3.1 mmol/L (3.5-5.1); Sodium 134 mmol/L (135-145); Total Bilirubin 1.3 mg/dl (0.2-1.3); Total CK 912 U/L (55-170); Total Protein 5.9 g/dl (6.3-8.2); eGFR 59.84
[2024-06-20 06:51] LABS: Prealbumin (Transthyretin) 16.7 mg/dl (17.6-36.0)
[2024-06-20 07:14] LABS: CKMB 33.1 ng/ml (0.0-2.4)
[2024-06-20] MEDS: FOLVITE 1 MG PO (07:30)
[2024-06-20] MEDS: REFRESH CELLUVISC GEL 1 DROPS OPHTH (07:31)
[2024-06-20] MEDS: PROTONIX IV 40 MG IV (07:31)
[2024-06-20] MEDS: NSS (PRESERVATIVE FREE) 10 ML IV (07:32)
--- NOTE | 2024-06-20 07:36 | CON.CAR ---
Addendum entered and electronically signed by Mack Alonso MD 06/20/24 11:14:
I saw and examined the patient.
The PASTING MACHINE OPERATOR or PA's note was reviewed and I agree with the note.
Comment: Unresponsive
Neck: Supple, no JVD, HJR, carotids +2 B/L, no bruits bilaterally.
Heart: Non displaced PMI, RRR, no murmurs, No S3, S4, no rubs.
Lungs: Scattered rhonchi
Extremities: No clubbing, cyanosis or edema bilaterally.
Neuro: Unresponsive
Luisito has history of A-fib on chronic Xarelto, hypertension, prostate cancer status post prostatectomy, alcohol abuse. He presented with a witnessed cardiac arrest. Bystander who was a nurse started CPR. Patient was found to be in V-fib. He
received 8 rounds of epi and 7 shocks and had return of circulation within 20 minutes. He is now on cooling protocol. Reportedly had had heartburn recently per his .
Troponin is elevated at 11 but may be multifactorial with multiple shocks. Await echocardiogram results. Need to consider cardiac etiology if patient has neurologic recovery. Would do ischemic evaluation in the event of neurologic recovery. He
remains on pressors and is not a candidate for beta-sadia but fortunately has had no arrhythmias. Discussed in detail with and niece at bedside
Original Note:
Consultation
Consultation Request
Date/Time Consultation Performed: 06/20/24
Requesting Provider: Dr. Wilder
Performing Provider: Mariana Castro PA-C for Dr. Alonso
Reason for Consultation: OOH arrest
Medical History
-
Chief Complaint: OOH arrest
History of Present Illness:
Patient is a 69 yo M with PMH PAF on chronic xarelto, HTN, prostate cancer s/p prostatectomy in 2018, former smoker, ETOH use disorder who presented to with witnessed OOH arrest. 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 A bystander who is a nurse started CPR and 911 called. On EMS arrival was noted to be in VF. Reportedly patient received 8 rounds of epi and 7 shocks. ROSC achieved after ~20 minutes and brought to ER. Reportedly had
complained of some heartburn recently per , but no c/o chest pain, and has also has had some LE edema. Reportedly drinks significant amount of vodka daily. Patient presently on cooling protocol, intubated, sedated. Trop peaked at 11.5.
PMH:
PAF on chronic xarelto
HTN
prostate cancer s/p prostatectomy 2017
former smoker
ETOH use disorder
Past Medical History
Past Medical History: Other (in HPI)
Social History
Tobacco: Former Smoker
Alcohol: Former
Personal:
Living: With Family
Employment: Employed
Family History
Family History: Cancer
Allergies / Home Medications
Allergy/AdvReac Type Severity Reaction Status Date / Time
No Known Allergies Allergy Unverified 04/19/23 15:30
�Medication �Instructions �Recorded �Confirmed �Type
metoprolol succinate 25 mg 25 mg PO DAILY #30 tabs 04/20/23 06/19/24 Rx
tablet,extended release 24 hr
magnesium oxide 600 mg PO DAILY 06/19/24 06/19/24 History
rivaroxaban 20 mg tablet (Xarelto) 20 mg PO DAILY 06/19/24 06/19/24 History
therapeutic multivitamin 1 tab PO DAILY 06/19/24 06/19/24 History
Review of Systems
-
Unable to obtain full review of systems at this time due to: Patient Intubation
Physical Exam
Vital Signs
Temp Pulse Resp BP Pulse Ox
96.2 F L 63 18 79/67 100
06/20/24 06:00 06/20/24 06:15 06/20/24 06:15 06/20/24 06:00 06/20/24 06:15
Lab Results
06/20/24 05:55
06/20/24 05:55
Troponin I 8.010 ng/ml H* D 06/20/24 05:55
Zxp-G-Uyuizttnmum Pept 84.4 pg/ml 06/19/24 18:20
Physical Exam
General: No Apparent Distress, Intubated and Other (on cooling protocol)
HEENT: Normocephalic and Moist Mucous Membranes
Respiratory: Clear and Non Labored Respirations
Cardiac: S1/S2 and Regular Rhythm
GI: Soft, Non Tender, Non Distended and Normal Bowel Sounds
Musculoskeletal: No Clubbing, No Cyanosis and No Edema
Skin: Warm and Dry
Neuro: Sedated
Impression / Plan
-
Primary Veneer Gluer: Dr. Fulton, last seen 09/2023
Assessment:
Presentation with witnessed OOH arrest, VF s/p 8 rounds of epi and 7 shocks with ROSC, now on TTMP, intubated
Hypotension requiring pressor support
Leukocytosis
Lactic acidosis
Hypokalemia
Elevated troponin
Elevated LFTs
Hypomagnesemia, improved
PAF on chronic xarelto
History of prolonged QTc
HTN
prostate cancer s/p prostatectomy 2017
former smoker
ETOH use disorder
VIRGILIO 04/20/23: EF 50 to 55%, mild TR, PAP 60 mmHg, no thrombus detected in [place], CV followed
Plan:
-Patient presents with witnessed OOH VF arrest requiring 8 rounds epi and 7 shocks with ROSC
-intubated, sedated on fent/propofol
-currently on cooling protocol.
-getting EEG and echo this AM. last echo was VIRGILIO 03/2023 as above
-initial EKG SR with 1st degree av block. on tele with occasional brief wide complex rhythm. continue IV amiodarone
-trop peaked at 11.5 and trending down. will need eventual ischemic evaluation +/- ICD pending clinical course
-rectal asa now
-check CVE
-continue IV heparin. on xarelto as OP. hgb stable at 14.2
-hypotension requiring epi @4, levo@16. wean as able
-proBNP 84. CXR with evidence of possible pulm edema. consideration for dose of IV lasix
-MSAS protocol given daily ETOH use
-d/w nursing
Data Reviewed
-
EKG: Tracing Personally Visualized and interpreted
Radiology: Report Reviewed by me
Medical Tests (Nuc Med, Echo etc): Report Reviewed by me
Labs: Labs Reviewed by me
Old Records: Reviewed
--- NOTE | 2024-06-20 08:00 | PTCARENOTE ---
Pt rec'd from construction management instructor RN intubated, sedated on Fentanyl and Propofol. Ventilator settings as documented, Arctic Sun TTM ongoing with goal set of 96.8, temp sensing serrano in place. Pt. currently in sinus rhythm with occ PVCs noted. Amiodarone,
insulin and heparin drips infusing. Levophed and Epinephrine gtt infusing, see worklist. Neuro assessment completed, pt is spont opening eyes, not following commands at this time. Occ moist productive cough noted, mod blood tinged secretions, oral
care provided. OG tube to LIS suction/clamped with med administration. A Line zeroed and leveled, Right femoral TLC in place and patent, all other assessment as documented. Family at bedside, plan of care discussed.
--- NOTE | 2024-06-20 08:21 | CON.INTV ---
Consultation
Consultation Request
Date/Time Consultation Requested: 06/19/20242116
Date/Time Consultation Performed: 06/20/2024816
Requesting Provider: Dr. Cline
Performing Provider: Dr. Farnsworth
Reason for Consultation: Cardiac Arrest
Medical History
-
Chief Complaint: Collapsed
History of Present Illness:
69-year-old male former tobacco smoker with a past medical history of A-fib on Xarelto who presents with llv-np-omlrxboi cardiac arrest. 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
shocks, 8 mg of epi and 450 mg of amiodarone. Patient intubated in the field, and brought to the ER where he was found to be in ROSC. He reportedly was in V-fib rhythm. ROSC obtained approximately 20 minutes after collapsing. Patient was
unresponsive in the ER not following commands or awakening. Therapeutic hypothermia was started and he was transferred to the ICU for further care with rotary cutter feeder services consulted for additional recommendations/management.
Patient seen and evaluated morning. Temperature this AM is 96.2F. He reached goal temperature at 2315 last night. He is on levo at 16mcg/min, fent at 50mcg/hr, prop at 25mcg/kg/min, amio 0.5mg/min, heparin gtt, epi at 4mcg/min and insuin at 5
units/hr. He remains intubated, not following commands although he does open his eyes spontaneously. Family at bedside, all questions were answered. EEG done this AM showing no seizures with diffuse cortical dysfunction without focal abnormality.
Daughter, Anne Marie, son, Andrés, , Yasmin Zhang, and niece, Bijan, are all at bedside, and all questions were answered. Currently on vent VC/AC 500/18/40%/5.
PMHx: A-fib, hypertension, long QT syndrome, history of prostate cancer, obesity, former tobacco smoker, alcohol use disorder
PSHx: Prostatectomy, appendectomy, knee arthroscopy
Past Medical History
Past Medical History: Other (Above as per HPI)
Past Surgical History: Other (Above as per HPI)
Social History
Tobacco: Former Smoker (Quit approximately 35 years ago with approximately 69-itfj-ftfo history)
Alcohol: Daily (Vodka daily, unclear the amount)
Drug: None
Personal:
Living: With Family
Family History
Family History: CAD (Father) and Cancer (Father + mother: Lung cancer)
Allergies / Home Medications
Allergies
Allergy/AdvReac Type Severity Reaction Status Date / Time
No Known Allergies Allergy Unverified 04/19/23 15:30
Home Medications
�Medication �Instructions �Recorded �Confirmed �Last Taken �Type
metoprolol succinate 25 mg 25 mg PO DAILY #30 tabs 04/20/23 06/19/24 Unknown Rx
tablet,extended release 24 hr
magnesium oxide 600 mg PO DAILY 06/19/24 06/19/24 Unknown History
rivaroxaban 20 mg tablet (Xarelto) 20 mg PO DAILY 06/19/24 06/19/24 Unknown History
therapeutic multivitamin 1 tab PO DAILY 06/19/24 06/19/24 Unknown History
Review of Systems
-
Unable to Obtain full review of systems at this time due to: Patient Intubation
Vitals / Labs / Diagnostic Testing
Vital Signs
Temp Pulse Resp BP Pulse Ox
96.2 F L 63 18 79/67 100
06/20/24 06:00 06/20/24 06:15 06/20/24 06:15 06/20/24 06:00 06/20/24 08:36
Lab Data
06/20/24 05:55
06/20/24 05:55
Laboratory Results
06/19/24 06/19/24 06/19/24
18:20 18:58 19:23
PT 18.7 H
INR 1.58
APTT 32.6
pH 7.16 L*
pCO2 70 H
pO2 72 L
HCO3 25.0
O2 Delivery Level Not Reportable
06/19/24 06/20/24 06/20/24
23:51 02:20 05:55
PT 18.7 H 17.3 H
INR 1.58 1.43
APTT 154.0 H* 88.3 H
pH 7.33 L
pCO2 40
pO2 231 H
HCO3 21.1
O2 Delivery Level 80&
Diagnostic Testing:
Physical Exam
-
HEENT: Normocephalic, Anicteric and Other (ETT in place)
Cardiovascular: S1/S2 and Peripheral Edema (negative)
Respiratory: Wheeze (negative), Rales (Bibasilar), Rhonchi (negative), Non-Labored Respirations and Other (Mechanical breath sounds heard bilaterally)
GI: Soft, Non Distended, Non Tender and Normal Bowel Sounds
Neurology: Tremors (negative) and Other (Minimally responsive although he does occasionally track with his eyes)
Skin: Warm and Dry
General: Respiratory Distress (negative), Comfortable, Chills (negative) and Sweats (negative)
Assessment
-
Assessment: 69-year-old male former tobacco smoker with a past medical history of A-fib on Xarelto who presents with zhk-ip-aytiurse cardiac arrest. 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
a total of 7 shocks, 8 mg of epi and 450 mg of amiodarone. Patient intubated in the field, and brought to the ER where he was found to be in ROSC. He reportedly was in V-fib rhythm. ROSC obtained approximately 20 minutes after collapsing.
Patient was unresponsive in the ER not following commands or awakening. Therapeutic hypothermia was started and he was transferred to the ICU for further care with rotary cutter feeder services consulted for additional recommendations/management.
Chronic conditions MANAGER CLINICAL: A-fib, hypertension, long QT syndrome, history of prostate cancer, obesity, former tobacco smoker, alcohol use disorder
Impression:
#Zwp-py-mypwnvef cardiac arrest (reportedly V-fib arrest) s/p ROSC after multiple shocks, epinephrine + amiodarone
#Acute respiratory failure with hypoxia + hypercapnia now on mechanical ventilation (intubated 06/19/2024)
#Acute pulmonary edema, likely cardiogenic
#Alcohol use disorder
#Leukocytosis
#Hypokalemia
#Lactic acidosis
#Hypophosphatemia
#Transaminitis
#Rhabdomyolysis (mild)
#Elevated troponin due to cardiac arrest (peaked at 11.5 on 06/19/2024)
#Abnormal urinalysis suspicious for UTI
#Hyperglycemia
Plan:
- Continue with therapeutic hypothermia maintaining goal temperature of 34-36 �C for least 24 hours, then begin to slowly rewarm at 0.5-1 �C/h until normothermic
- Keep core temperature-sensing probe in place for at least 48 hours s/p reaching normothermia to assure that fevers avoided at all costs
- Neurology consult and EEG done today shows mild diffuse cortical dysfunction without focal abnormality and no seizures recorded
- Cardiology consulted to defer ischemic evaluation to them
- Avoid all sedation if possible to help prognosticate
- Check echo --> shows reduced LVEF at 30% with global hypokinesis, RV dilation with mildly reduced RV function and mild pulmonary hypertension
- continue amio
- heparin gtt
- Given his cardiac arrest with high likelihood for aspiration ammonia and his abnormal urinalysis, start antibiotics with Unasyn
- Given the degree of acute pulmonary edema seen on imaging, maintain net negative fluid balance as tolerated
- Given his Hx of EtOH use, continue thiamine, folate and MSAS
- Continue mechanical ventilation and titrate FiO2 + PEEP to maintain SpO2 >94%
- Adjust vent as needed based on daily blood gases
- Will start phenobarbital as we wean off propofol
- Maintain SpO2 >90-94%
- Maintain MAP>65
- Trend lactate until <2mmol/L
- Replete electrolytes with K>4, Mg>2
- Maintain euglycemia with goal BG 140-180
- Trend H/H and transfuse if needed to keep Hb>7g/dL; kep plt>20k, unless there is concern for bleeding then keep plt>50k
- prn nebulized bronchodilators - not currently bronchospastic
- Incentive spirometer encouraged 10x per hour for at least 4 hrs a day
- DVT ppx: heparin gtt
- Guarded prognosis
Critical care statement: A total of 40 minutes of critical care time was provided for this patient today. This includes management of unstable vital signs, evaluation of the patient at bedside, reviewing the patient's pertinent medical records
including radiographs, microbiology, laboratory evaluations, and discussion with primary team, consultants, pharmacy, nutrition, physical therapy, case management, charge nurse, critical care nursing, and respiratory therapy.
[2024-06-20 08:31] LABS: % Basophils 0.1 % (0-2); % Immature Granulocytes 0.7 % (0-0.5); % Lymphocytes 1.8 % (20.5-51.1); % Monocytes 3.7 % (1.7-9.3); % Neutrophils 93.7 % (42.2-75.2); Absolute Immature Granulocytes 0.2 10^3/uL (0-0.05); Absolute Lymphocytes 0.4 10^3/uL (1.2-3.4); Absolute Monocytes 0.8 10^3/uL (0.1-0.6); Absolute Neutrophils 20.5 10^3/uL (1.4-6.5); Nucleated Red Blood Cells % 0 % (-)
[2024-06-20 08:43] LABS: Glucose - Point of Care 121 mg/dl (70-99)
--- NOTE | 2024-06-20 08:45 | CARDSERVLU ---
Echocardiogram with Lumason completed after protocol screening completed. Allergies verified.
Patent IV site: _L wrist____
IV site flushed with 0.9% NaCl pre and post administration.
Diluted bolus method utilized to enhance visualization of ventricular beyer.
Total volume given: __6.5__ mL
Patient tolerated all procedures well without complications.
--- NOTE | 2024-06-20 08:55 | CON.NEURO4 ---
Addendum entered and electronically signed by Sajan Adamson MD 06/20/24 10:42:
Studies reviewed.
I have personally examined the patient. I reviewed and agree with the BUSINESS SOLUTIONS ARCHITECT's Note.
My addenda:
Awake, not alert, not interactive. No acute distress. Intubated.
Speech mute and patient is intubated.
Follows no requests. No tremor.
Extra-ocular movements grossly intact. Patient does track with eyes
Hearing unable to assess.
Trace movements with painful stimulation inconsistently
Neck: full ROM.
Chest: no dyspnea
Heart: no JVD
Ext: (-) Clubbing, (-) Cyanosis, (-) Edema
IMPRESSIONS/RECOMMENDATIONS:
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
Prognosis is not poor based on the patient's spontaneous eye opening, tracking with eyes, unremarkable unenhanced CT of the head, and nonmalignant EEG
Check EEG, completed
Monitor for alcohol withdrawal
Consider repeated EEG if patient has a decline in mental status
No indication at this time for antiseizure medication
No contraindication at this time to allow the patient to undergo additional testing from a neurological perspective
Will continue to follow patient.
Original Note:
Consultation - Neurology 4
-
CONSULTING PHYSICIAN: Sajan Adamson MD
REFERRING PHYSICIAN: Hospitalists/Dr. Cline
DICTATED BY: [facility]
DATE/TIME OF REQUEST: 06/19/24
DATE/TIME OF CONSULTATION: 06/20/24
Reason for Consultation: Cardiac Arrest
History of Present Illness:
This is a 69-year-old unknown handed male with a PMH of Afib (Xarelto), HTN, prostate cancer, and chronic daily alcohol use who has presented to the hospital on 06/19/24 with report of cardiac arrest. Patient is currently intubated/sedated in the
ICU and this information is obtained from medical records and nursing staff at bedside. 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 Bystander CPR was initiated immediately. On EMS arrival, the patient was
noted to be in Vfib, he received 8 rounds of Epi and 7 shocks prior to achieving ROSC after about 20 minutes. Per patient's , he has been complaining of increased heartburn recently and swelling/discomfort in BLE. Unable to complete a ROS due to
acuity level.
Past Medical History: Afib (Xarelto), HTN, long QT syndrome, prostate cancer, obesity, chronic daily alcohol use, near syncope, hypomagnesemia, elevated LFTs
Surgical History: Prostatectomy, appendectomy, knee arthroscopy
Family History: Reviewed and noncontributory.
Social History: Former smoker. Chronic daily alcohol, several vodka drinks daily. No illicit drug use.
Allergies: No known allergies.
Home Medications: See below.
Review of Symptoms:
Per the HPI. I am unable to obtain a complete review of systems�because of patient's inability to provide history.
Physical Exam:
The patient is afebrile, abdomen is nondistended, breathing is unlabored on mechanical ventilation, skin is cool and dry, no edema.
Neurologic Examination:
Patient is intubated and sedated on Fentanyl/propofol, cooling protocol. He opens his eyes spontaneously, somewhat tracks in direction of voice, and blinks frequently. +Corneals and cough, absent gag. He does not follow any commands. JACOBY speech. On
cranial nerve assessment, pupils are 3 mm bilateral, round and sluggish to light and accommodation. There is a bilateral downbeating nystagmus at rest. JACOBY EOMS or visual richard. Gaze is midline. No apparent facial asymmetry. JACOBY hearing, Tongue
palate and uvula. To pain, all four extremities are 0/5 but there is slight toe wiggling bilaterally. No involuntary movement noted. Deep tendon reflexes are absent bilateral upper and lower extremities and Babinski is absent bilaterally. JACOBY
sensation, double simultaneous stimulation, and coordination.
Lab Results: See below.
Neuro Imaging:
1. CT Head 06/19/24: No acute intracranial abnormality noted. Mild senescent changes, similar to prior.
2. CT Cervical Spine 06/19/24: No acute osseous abnormality. Multilevel degenerative changes. There are findings of likely severe pulmonary edema, less likely infectious process within the bilateral lung apices.
Differentials for the patient's presentation include:
1. S/P cardiac arrest, approximately 20 minute downtime. Unclear neurological prognosis at this point; likely poor given prolonged down-time, but patient's eye opening/blinking is an optimistic sign.
2. Afib (Xarelto).
3. Chronic daily alcohol usage.
Patient has the following risk factors for their symptoms: Age, HTN, chronic daily alcohol usage, Afib
Recommendations:
-Routine EEG pending.
-Eventual MRI brain noncontrast when stable.
-Neurological checks per unit guidelines.
-MSAS protocol. Thiamine/folic acid replacement.
-DVT prophylaxis.
-Will follow.
Discussed patient care with: Dr. Adamson, nursing staff.
Vital Signs and Labs
-
Vital Signs and Labs:
Vital Signs
Temp Pulse Resp BP Pulse Ox
96.2 F L 63 18 79/67 97
06/20/24 09:00 06/20/24 06:15 06/20/24 06:15 06/20/24 06:00 06/20/24 09:10
Lab Results
06/20/24 05:55
06/20/24 05:55
PT 17.3 Sec (11.4-14.6) H 06/20/24 05:55
INR 1.43 06/20/24 05:55
APTT 88.3 Sec (23.4-35.0) H 06/20/24 05:55
Sodium 134 mmol/L (135-145) L 06/20/24 05:55
Potassium 3.1 mmol/L (3.5-5.1) L 06/20/24 05:55
BUN 20 mg/dl (9-20) 06/20/24 05:55
Glucose 134 mg/dl (70-99) H 06/20/24 05:55
Calcium 8.3 mg/dl (8.4-10.2) L 06/20/24 05:55
Phosphorus 1.9 mg/dl (2.5-4.5) L 06/20/24 05:55
Xjk-K-Mwkqozkfkbd Pept 84.4 pg/ml 06/19/24 18:20
Medications
-
Medications:
Generic Name Dose Route Start Last Admin
Trade Name Freq PRN Reason Stop Dose Admin
Acetaminophen 650 mg 06/20/24 00:00 06/20/24 05:07
Acetaminophen (Oral Solution) 650 Mg/20.3 Ml Cup TUBE 06/24/24 00:00 650 mg
Q6 LIZA Administration
Acetaminophen 650 mg 06/19/24 21:17
Acetaminophen 650 Mg Rectal Suppository RECTAL 06/23/24 21:16
Q6HPRN PRN
if cannot be given via tube
Buspirone HCl 30 mg 06/20/24 00:00 06/20/24 10:00
Buspirone 15 Mg Tablet TUBE 07/18/24 00:00 Not Given
Q8 LIZA
Carboxymethylcellulose Sodium 1 drops 06/20/24 08:00 06/20/24 07:31
Carboxymethylcellulose Ophth Gel (Celluvisc) Droperette OPHTH 07/18/24 07:59 1 drops
BID LIZA Administration
Dextrose 12.5 grams 06/19/24 22:30
Dextrose 50% (0.5 Grams/Ml) 50 Ml Syringe IV 07/17/24 22:29
[id number] PRN
BLOOD GLUCOSE < 70
Fentanyl Citrate 50 mcg 06/19/24 21:17
Fentanyl (50 Mcg/Ml) 100 Mcg/2 Ml Ampul IV 07/03/24 21:16
[id number] PRN
see protocol
Protocol
Folic Acid 1 mg 06/20/24 08:00 06/20/24 07:30
Folic Acid 1 Mg Tablet PO 07/18/24 07:59 1 mg
DAILY LIZA Administration
Amiodarone HCl 900 mg/ 518 mls @ 0 mls/hr 06/19/24 18:45 06/19/24 19:45
Dextrose/Water IV 518 mls
PER PROTOCOL LIZA Administration
Protocol
Per Protocol
Heparin Sodium 25,000 units in 250 mls @ 0 mls/hr 06/19/24 19:30 06/19/24 20:26
Heparin 50186 Units/250 Ml IV 250 mls
PER PROTOCOL LIZA Administration
Protocol
Per Protocol
Fentanyl Citrate 1,000 mcg in 100 mls @ 0 mls/hr 06/19/24 21:17 06/19/24 22:00
Sublimaze IV 100 mls
PER PROTOCOL LIZA Administration
Protocol
Per Protocol
Propofol 1,000,000 mcg in 100 mls @ 0 mls/hr 06/19/24 21:17 06/20/24 06:21
Diprivan IV 100 mls
PER PROTOCOL LIZA Administration
Protocol
Per Protocol
Folic Acid 1 mg/ Sodium 50.2 mls @ 200.8 mls/hr 06/19/24 21:17
Chloride IV 07/17/24 21:16
DAILYPRN PRN
if NPO
Vecuronium Squires 60 mg/ 250 mls @ 0 mls/hr 06/19/24 21:17
Sodium Chloride IV
PER PROTOCOL LIZA
Protocol
Per Protocol
Insulin Human Regular 100 units in 100 mls @ 0 mls/hr 06/19/24 22:30 06/19/24 22:55
Novolin R Insulin Infusion IV 100 mls
PER PROTOCOL LIZA Administration
Protocol
Per Protocol
Epinephrine HCl 4 mg in 250 mls @ 0 mls/hr 06/20/24 01:15 06/20/24 01:18
Adrenalin IV 250 mls
PER PROTOCOL LIZA Administration
Protocol
Per Protocol
Norepinephrine Bitartrate 8 mg 258 mls @ 0 mls/hr 06/20/24 06:30 06/20/24 10:02
/ Dextrose IV 258 mls
PER PROTOCOL LIZA Administration
Protocol
Per Protocol
Ampicillin Sodium/Sulbactam 120 mls @ 240 mls/hr 06/20/24 10:00 06/20/24 10:01
Sodium 3 gm/ Sodium Chloride IV 06/30/24 16:29 120 mls
Q6H LIZA Administration
Potassium Chloride 40 meq in 100 mls @ 25 mls/hr 06/20/24 09:24
Kcl IV 06/20/24 13:23
NOW STA
Pantoprazole Sodium 40 mg 06/20/24 08:00 06/20/24 07:31
Pantoprazole Sodium 40 Mg/10 Ml Vial IV 07/18/24 07:59 40 mg
DAILY LIZA Administration
Potassium Phosphate 500 mg 06/20/24 10:00
Neutra-Phos Powder Concentrate (250 Mg) Packet TUBE 06/20/24 14:01
Q4H LIZA
Sodium Chloride 0 flush 06/19/24 22:00
Sodium Chloride 0.9% (Flush) Syringe IV 07/17/24 21:59
PER PROTOCOL LIZA
Sodium Chloride 10 ml 06/20/24 08:00 06/20/24 07:32
Sodium Chloride 0.9% (Preservative Free) 10 Ml Vial IV 07/18/24 07:59 10 ml
DAILY LIZA Administration
Thiamine HCl 100 mg 06/23/24 08:00
Thiamine 100 Mg Tablet PO 07/21/24 07:59
BID LIZA
Thiamine HCl 200 mg 06/20/24 00:00 06/20/24 07:32
Thiamine (100 Mg/Ml) 2 Ml Vial IV 06/22/24 16:01 200 mg
Q8 LIZA Administration
Vecuronium Squires 9 mg 06/19/24 21:17
Vecuronium Squires (1 Mg/Ml) 10 Mg/10 Ml 0.1 mg/kg (9 mg) 06/22/24 21:17
IV
Q1HPRN PRN
BSAS >/= 1
Protocol
[2024-06-20 09:02] LABS: Glycohemoglobin (HgbA1c) 5.4 % (4.0-5.6)
[2024-06-20] MEDS: BUSPAR TUBE (10:00)
[2024-06-20] MEDS: UNASYN IV ×3 (10:01→23:00)
[2024-06-20] MEDS: LEVOPHED 258 MG IV (10:02)
--- NOTE | 2024-06-20 10:05 | CM ---
CM following re: discharge planning.
Reviewed pt's chart, met with pt. pt's spouse and pt's niece at bedside.
Pt is a 69 year old male, admitted with primary dx of out of hospital cardiac arrest. Per Rounds meeting, pt remains intubated and sedated, on cooling protocol, continue supportive care.
Pt lives with spouse in a 2SH, 2 steps to enter, has supportive son and per spouse son is coming to visit the pt today. 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 No DME, VN or SNF history.
Pt's spouse stated that pt has significant h/o alcohol abuse, drink of choice - vodka.
PCP: Luis Enrique Mcdermott
Pharmacy: [facility]
D/C plan: uncertain at this time and will depend on pt's progress.
CM will follow with discharge plan updates as hospitalization progresses
[2024-06-20 10:08] LABS: Glucose - Point of Care 117 mg/dl (70-99)
[2024-06-20] MEDS: ASPIRIN 300 MG RECTAL (10:20)
[2024-06-20] MEDS: NEUTRA-PHOS POWDER PACKET 500 MG TUBE (10:21)
[2024-06-20] MEDS: LASIX 40 MG IV (10:21)
[2024-06-20 10:35] LABS: APTT 67.8 Sec (23.4-35.0)
[2024-06-20 10:36] LABS: Lactic Acid 3.4 mmol/L (0.7-2.0)
[2024-06-20 10:39] LABS: HDL Cholesterol 106 mg/dl; LDL Cholesterol, Calculated 50 mg/dl; Total Cholesterol 179 mg/dl (50-199); Triglyceride 115 mg/dl (10-149); Very Low Density Lipoprotein 23 mg/dl (0-30)
--- NOTE | 2024-06-20 11:15 | PTCARENOTE ---
11:05- Grand Rounds by Care Management Assistant team, sedation turned off at this time. Pt waking up and restless, following some commands.
--- NOTE | 2024-06-20 12:11 | W.PN.HOSP.TC ---
Today's Communication/Plan
-
IV hep
IV amio
cooling protocol
replete lytes
diuresis once more stable
Assessment / Plan
Assessment / Plan
A/P: 69y M with PMH significant for A-Fib and alcohol use disorder who presents to ED after [id number] arrest.
Cardiac Arrest
Ventricular Fibrillation
History of Prolonged QT
Lactic Acidosis secondary to the above
Acute respiratory failure status post intubation on mechanical ventilation
- Vent support, sedation if needed, pressor support if needed.
- IV Amiodarone protocol.
- Targeted temperature management protocol-plan to stop it if following commands.
- Follow for cognitive recovery after re-warming.
- Stave Block Roller and Neurology evaluations for additional recommendations.
- Differential etiology of arrest includes acute ischemia / CAD, arrhythmia due to long QT, etc. based on neurological recovery probably will require catheterization
- CT head -no acute intracranial abnormality. Mild age-related changes.
ACS
- No STEMI on initial EKG. Troponin elevated after arrest, CPR, defibrillations, etc.
- IV heparin for now.
- Cardiology evaluation as noted above.
- Will benefit from eventual ischemic evaluation depending on recovery process.
Pulmonary Edema
- Noted on CXR and CT neck.
- Patient will likely benefit from diuresis once hemodynamically more stable.
- Check Echo-normal left ventricular chamber size. Moderate reduced left ventricular systolic function. EF 30%. Global hypokinesis. Mild concentric LVH. Right ventricle is mildly dilated. Mildly reduced RV function.
- Cardiology eval as noted above.
Paroxysmal Atrial Fibrillation
- Currently in sinus rhythm with 1st degree AV block.
- Hold Xarelto acutely - on IV heparin for now.
- Monitor on telemetry.
- On IV Amio at present. Add rate-control agents if needed.
Leukocytosis
-started on Unasyn per french comber.
-?aspiration pneumonia
Alcohol Use Disorder
Hypomagnesemia
- reports significant daily EtOH intake. Approximately 3 L of vodka weekly
- No history of withdrawal syndromes, seizures, etc.
- Currently on propofol.
- Follow MSAS - any withdrawal symptoms should be controlled with current sedation, cooling regimen, etc.
- Follow and replace electrolytes as needed.
History of Prostate Cancer
- s/p prostatectomy
- Campos in place.
Hypophosphatemia/Hypokalemia
-replete/monitor
DVT Prophylaxis: On IV Heparin
GI ppx- IV PPI
Code Status: Full
Discussed with patient spouse and multiple other family members at bedside in detail
Total Critical Care Time_ 36 minutes. I was immediately available to the patient and staff. I personally examined, reviewed labs, diagnostic images/reports, interpretations, treatment plans, discussed patient care with other providers and family
or caregivers (if patient is unable to make decisions), entered orders as appropriate and documented the medical record.
Anticipated Discharge: > 48 hours
Subjective/Interval History
-
Date of Service: June 20, 2024
remains intubated
eyes open
on cooling protocol
remains on pressors
Objective Data
-
Labs:
Laboratory Results
06/19/24 06/19/24 06/20/24
23:51 23:52 02:20
WBC 24.6 H
Hgb 15.0
Hct 42.6
Plt Count 173
PT 18.7 H
INR 1.58
APTT 154.0 H*
HCO3
Sodium 137
Potassium 3.1 L
Chloride 99
Carbon Dioxide 18 L
BUN 17
Creatinine 1.2
Glucose 209 H
Calcium 8.6
Total Bilirubin 1.9 H
AST 368 H
ALT 147 H
Alkaline Phosphatase 93
06/20/24 06/20/24 06/20/24
05:55 10:00 10:07
WBC 21.9 H
Hgb 14.2
Hct 39.8
Plt Count 151
PT 17.3 H
INR 1.43
APTT 88.3 H Pending 67.8 H
HCO3
Sodium 134 L
Potassium 3.1 L
Chloride 98
Carbon Dioxide 21 L
BUN 20
Creatinine 1.3
Glucose 134 H
Calcium 8.3 L
Total Bilirubin 1.3
AST 251 H
ALT 127 H
Alkaline Phosphatase 84
06/20/24 06/20/24 06/20/24
12:02 12:04 18:00
WBC Pending
Hgb Pending
Hct Pending
Plt Count Pending
PT
INR
APTT Pending
HCO3 Pending
Sodium Pending
Potassium Pending
Chloride Pending
Carbon Dioxide Pending
BUN Pending
Creatinine Pending
Glucose Pending
Calcium Pending
Total Bilirubin Pending
AST Pending
ALT Pending
Alkaline Phosphatase Pending
Vital Signs:
Vital Signs
Temp Pulse Resp BP Pulse Ox
96.8 F L 72 18 107/74 99
06/20/24 11:00 06/20/24 11:30 06/20/24 11:30 06/20/24 10:21 06/20/24 11:30
I&O
06/19/24 06/20/24 06/21/24
06:59 06:59 06:59
Intake Total 1433.1 / 1541.8 514.5 / 514.5
Output Total 60 / 60 207 / 207
Balance 1373.1 / 1481.8 307.5 / 307.5
Physical Exam
-
General: Appears Chronically Ill
HEENT: Normocephalic, Atraumatic and Moist Mucous Membranes
Respiratory: Other (ETT noted )
Cardiac: Regular Rhythm and S1/S2
GI: Nondistended
Genito-urinary: No Costovertebral Tender
[2024-06-20 12:32] LABS: Hematocrit 39.5 % (39.0-52.0); Hemoglobin 14.2 g/dL (13.0-18.0); Mean Corp Hgb Conc. 35.9 g/dL (33.0-37.0); Mean Corpuscular Hgb 34.4 pg (27.0-31.0); Mean Corpuscular Volume 95.6 fL (80.0-94.0); Mean Platelet Volume 11.6 fL (7.4-10.4); Platelet Count 163 10^3/uL (130-400); Red Blood Cell Count 4.13 10^6/uL (4.70-6.10); Red Cell Dist. Width 12.1 % (11.5-14.5); White Blood Cell Count 23.9 10^3/uL (4.8-10.8)
--- NOTE | 2024-06-20 12:45 | W.PN.UPDATE ---
Update Note
Progress Note Update
Shortly after rounds, patient woke up after sedation was weaned off. He is very hard of hearing however multiple family numbers at bedside and they assisted with assessing patient. He is following all commands, able to give thumbs up, able to lift
head off the pillow. Minimal ETT secretions. Given that he is following commands with full recovery of neurologic function, stop therapeutic hypothermia protocol. Will start to wean him on PS trial of 5/5 and if he tolerates this for 30 minutes
then lower PEEP to 0 given his acute pulmonary edema. If patient tolerates PEEP of 0 for at least 15-20 minutes then I will check ABG and if that looks satisfactory with him otherwise remaining clinically stable then will extubate to BiPAP x 30
minutes - 1 hour before transitioning to nasal cannula. Family made aware of this plan and I answered all their questions and they verbalized understanding.
[2024-06-20 12:52] LABS: Glucose - Point of Care 91 mg/dl (70-99)
[2024-06-20] MEDS: NOVOLIN R INSULIN INFUSION 100 IV (13:14)
[2024-06-20 13:16] LABS: B.E. -2.4 mmol/L; HCO3 23.7 mmol/L (21-28); PCO2 45 mmHg (35-48); PO2 129 mmHg (83-108); pH 7.33 (7.35-7.45)
[2024-06-20 13:20] LABS: AST (SGOT) 203 U/L (17-59); Albumin 3.4 g/dl (3.5-5.0); Blood Urea Nitrogen 22 mg/dl (9-20); Carbon Dioxide 20 mmol/L (22-30); Chloride 97 mmol/L (98-107); Estimated Creatinine Clearance 51 ml/min; Glucose 104 mg/dl (70-99); Total Bilirubin 1.2 mg/dl (0.2-1.3); Total Protein 6.1 g/dl (6.3-8.2)
--- NOTE | 2024-06-20 13:21 | EEG.RPT ---
Addendum entered and electronically signed by Sajan Adamson MD 06/20/24 14:39:
-----IGNORE THIS REPORT-----
Original Note:
Electroencephalogram Report
Recording
Date of EE06/20/24
Type of EEG: Routine
Length of EEG recordin minutes
Done with Video Recording: Yes
Patient Status: Inpatient
Recording Conditions: Drowsy
Hyperventilation Performed: No
Photic Stimulation Performed: Yes
Report
LESS THAN 1 HOUR EEG REPORT
LESS THAN 1 HOUR EEG INTERPRETATION:
Moderately abnormal EEG for age due to diffuse bihemispheric slowing
CLINICAL CORRELATION:
This study was suggestive of diffuse cortical dysfunction without focal abnormality. No seizures were recorded.
Clinical correlation is advised.
METHODS:
A 21 channel digitized electroencephalogram (EEG) was performed at the bedside. The 10/20 international system of electrode placement was used with ECG and lateral/vertical eye movements recorded. Persyst QEEG monitoring was performed.
QUALITY OF STUDY:
Fair�poor
ELECTROENCEPHALOGRAPHER IMPRESSION(S):
Background
There was a low amplitude unorganized anterior-posterior voltage gradient of delta frequency
There were no significant asymmetries of background activity noted.
Sleep
Drowsiness present
Photic Stimulation
Failed to activate the record.
ECG
Normal sinus rhythm
[2024-06-20] MEDS: ATIVAN 0.5 MG IV (13:26)
[2024-06-20 13:28] LABS: Magnesium 2.1 mg/dl (1.6-2.3); Phosphorus 2.8 mg/dl (2.5-4.5); Total CK 905 U/L (55-170)
--- NOTE | 2024-06-20 13:30 | PTCARENOTE ---
12:30; SBT began, pt becoming more anxious, BP increasingly elevated, vasopressors turned off, ABG obtained. At 12:52, measurement supervisor at bedside ordered discontinuation of cooling, rewarming ordered. Pt extubated as ordered at 13:22 to Bipap 08/04 with
15L. Pt given Fentanyl bolus for respiratory effort. 0.5 mg Ativan administered for agitation, MSAS protocol initiated.
[2024-06-20 13:36] LABS: ALT (SGPT) 122 U/L (0-50); Alkaline Phosphatase 78 U/L (38-126); Calcium 8.8 mg/dl (8.4-10.2); Potassium 4.4 mmol/L (3.5-5.1); Sodium 135 mmol/L (135-145)
[2024-06-20] MEDS: DUONEB 3 ML INH (13:37)
[2024-06-20] MEDS: NSS (PRESERVATIVE FREE) 0.25 ML IV (13:39)
[2024-06-20] MEDS: NEUTRA-PHOS POWDER PACKET TUBE (13:40)
[2024-06-20 13:43] LABS: % Basophils 0.3 % (0-2); % Immature Granulocytes 0.6 % (0-0.5); % Lymphocytes 3.1 % (20.5-51.1); % Monocytes 6.1 % (1.7-9.3); % Neutrophils 89.9 % (42.2-75.2); Absolute Basophils 0.1 10^3/uL (0-0.2); Absolute Immature Granulocytes 0.1 10^3/uL (0-0.05); Absolute Lymphocytes 0.7 10^3/uL (1.2-3.4); Absolute Monocytes 1.5 10^3/uL (0.1-0.6); Absolute Neutrophils 21.5 10^3/uL (1.4-6.5); Nucleated Red Blood Cells % 0 % (-)
[2024-06-20] MEDS: SUBLIMAZE 50 MCG IV (14:10)
--- NOTE | 2024-06-20 14:12 | EEG.RPT ---
Electroencephalogram Report
Recording
Date of EE06/20/24
Type of EEG: Routine
Length of EEG recordin minutes
Done with Video Recording: Yes
Patient Status: Inpatient
Recording Conditions: Awake and Drowsy
Hyperventilation Performed: No
Photic Stimulation Performed: Yes
Report
LESS THAN 1 HOUR EEG REPORT
LESS THAN 1 HOUR EEG INTERPRETATION:
Mildly to moderately abnormal EEG for age due to diffuse bihemispheric slowing
CLINICAL CORRELATION:
This study was suggestive of mild diffuse cortical dysfunction without focal abnormality. No seizures were recorded.
Clinical correlation is advised.
METHODS:
A 21 channel digitized electroencephalogram (EEG) was performed at the bedside in the intensive care unit. The 10/20 international system of electrode placement was used with ECG and lateral/vertical eye movements recorded. Persyst QEEG monitoring
was performed.
QUALITY OF STUDY:
Good
ELECTROENCEPHALOGRAPHER IMPRESSION(S):
Background
There was a medium amplitude mildly organized anterior-posterior voltage gradient of theta maximal frequency
There were no significant asymmetries of background activity noted.
Sleep
Drowsiness present
Photic Stimulation
Failed to activate the record.
ECG
Normal sinus rhythm
[2024-06-20 14:18] LABS: CKMB 36.9 ng/ml (0.0-2.4)
[2024-06-20 14:21] LABS: Glucose - Point of Care 115 mg/dl (70-99)
[2024-06-20] MEDS: DEXTROSE 50% SYRINGE 12.5 GRAMS IV ×2 (16:23→18:08)
--- NOTE | 2024-06-20 16:30 | PTCARENOTE ---
16:18; Pt with 16 beat run VT, cardiology and Account Services Coordinator notified. Chemistry and troponin drawn and sent.
16:19; Pt glucose 55, insulin gtt off per protocol. 1/2 amp D50 administered per protocol. Repeat BG drawn 15 min later with result 108.
Pt maintaining normothermia at this time. Cooling wrap remains in place.
[2024-06-20 16:32] LABS: Glucose - Point of Care 55 mg/dl (70-99)
[2024-06-20] MEDS: LASIX 80 MG IV (16:36)
[2024-06-20] MEDS: CORDARONE 518 MG IV (16:37)
[2024-06-20 16:51] LABS: Lactic Acid 1.6 mmol/L (0.7-2.0)
[2024-06-20 16:52] LABS: Blood Urea Nitrogen 24 mg/dl (9-20); Calcium 8.1 mg/dl (8.4-10.2); Carbon Dioxide 25 mmol/L (22-30); Estimated Creatinine Clearance 51 ml/min; Glucose 155 mg/dl (70-99); Magnesium 1.7 mg/dl (1.6-2.3); Phosphorus 3.4 mg/dl (2.5-4.5)
[2024-06-20 17:03] LABS: Glucose - Point of Care 108 mg/dl (70-99)
[2024-06-20 17:38] LABS: Chloride 97 mmol/L (98-107); Potassium 3.5 mmol/L (3.5-5.1); Sodium 134 mmol/L (135-145)
[2024-06-20 18:15] LABS: Glucose - Point of Care 57 mg/dl (70-99)
[2024-06-20] MEDS: TYLENOL/FEVERALL 650 MG RECTAL (18:31)
[2024-06-20] MEDS: TYLENOL ORAL SOLUTION TUBE ×2 (18:32→23:15)
[2024-06-20 18:33] LABS: APTT 68.8 Sec (23.4-35.0)
[2024-06-20 18:34] LABS: Glucose - Point of Care 108 mg/dl (70-99)
[2024-06-20] MEDS: ATIVAN 2 MG IV (19:55)
--- NOTE | 2024-06-20 20:00 | PTCARENOTE ---
Received patient at 1900. Pt. currently in bed. Awake. Eyes open, tracking. Mouthing words and nodding head appropriately. Denies pain/discomfort. Afebrile. Heart rhythm sinus. Blood pressure normotensive. Levophed infusion turned off. Currently on
nasal cannula with plans for bipap HS. Lungs sound clear. Pt. is NPO. Abdomen obese. Campos catheter in place, draining without issue. Skin as documented. Discussed plan of care with patient's family. Vital signs stable at this time.
[2024-06-20 20:15] LABS: Glucose - Point of Care 87 mg/dl (70-99)
[2024-06-20 23:25] LABS: Glucose - Point of Care 140 mg/dl (70-99)
[2024-06-21] VITALS (25 sets, daily range): BP systolic 100–140; BP diastolic 58–116; PULSE 3–88; BMI 33.5
--- NOTE | 2024-06-21 | PTCARENOTE ---
Pt. placed on bipap HS. Had an episode of hypoxia. Respiratory contacted. Pt. bagged briefly then placed back on bipap. Oxygen saturation now within normal limits. Patient denies pain/discomfort. Vital signs stable at this time.
[2024-06-21] MEDS: NOVOLOG FLEXPEN-MODERATE RESISTANCE SC ×4 (00:15→23:43)
[2024-06-21] MEDS: ATIVAN 2 MG IV (00:16)
[2024-06-21] MEDS: THIAMINE INJECTION 200 MG IV ×3 (00:16→17:59)
[2024-06-21] MEDS: HEPARIN 25000 UNITS/250 ML IV (00:51)
[2024-06-21 01:10] LABS: APTT 95.6 Sec (23.4-35.0)
[2024-06-21] MEDS: UNASYN IV ×4 (03:02→21:53)
[2024-06-21 03:16] LABS: Glucose - Point of Care 160 mg/dl (70-99)
--- NOTE | 2024-06-21 05:00 | PTCARENOTE ---
Pt. assessment remains unchanged. Tolerating bipap. Appears comfortable. Vital signs stable at this time.
[2024-06-21 06:07] LABS: Glucose - Point of Care 124 mg/dl (70-99)
[2024-06-21] MEDS: TYLENOL ORAL SOLUTION TUBE ×2 (06:25→19:46)
[2024-06-21 06:33] LABS: INR 1.18; PT 14.8 Sec (11.4-14.6)
[2024-06-21 06:51] LABS: Hemoglobin 12.5 g/dL (13.0-18.0); Mean Corp Hgb Conc. 34.7 g/dL (33.0-37.0); Mean Corpuscular Hgb 33.9 pg (27.0-31.0); Mean Corpuscular Volume 97.6 fL (80.0-94.0); Mean Platelet Volume 12.3 fL (7.4-10.4); Platelet Count 124 10^3/uL (130-400); Red Blood Cell Count 3.69 10^6/uL (4.70-6.10); Red Cell Dist. Width 12.7 % (11.5-14.5); White Blood Cell Count 22.6 10^3/uL (4.8-10.8)
[2024-06-21 06:56] LABS: ALT (SGPT) 96 U/L (0-50); AST (SGOT) 143 U/L (17-59); Albumin 3.4 g/dl (3.5-5.0); Alkaline Phosphatase 75 U/L (38-126); Blood Urea Nitrogen 27 mg/dl (9-20); Calcium 8.3 mg/dl (8.4-10.2); Carbon Dioxide 21 mmol/L (22-30); Chloride 96 mmol/L (98-107); Creatine Phosphokinase 1567 U/L (55-170); Estimated Creatinine Clearance 47 ml/min; Glucose 136 mg/dl (70-99); Magnesium 1.7 mg/dl (1.6-2.3); Phosphorus 5.4 mg/dl (2.5-4.5); Potassium 4.5 mmol/L (3.5-5.1); Sodium 135 mmol/L (135-145); Total Bilirubin 1.7 mg/dl (0.2-1.3); eGFR 46.64
[2024-06-21 06:59] LABS: Prealbumin (Transthyretin) 15.5 mg/dl (17.6-36.0)
[2024-06-21 07:01] LABS: NT-proBNP 13400 pg/ml
[2024-06-21] MEDS: FOLVITE PO (07:28)
[2024-06-21] MEDS: DUONEB 3 ML INH (07:35)
[2024-06-21] MEDS: PROTONIX IV 40 MG IV (07:44)
[2024-06-21] MEDS: NSS (PRESERVATIVE FREE) 10 ML IV (07:44)
[2024-06-21] MEDS: ATIVAN 1 MG IV ×2 (08:00→12:06)
--- NOTE | 2024-06-21 08:07 | W.PN.INTV ---
Today's Communication / Plan
Recommendations
MSAS with thiamine/folate
Unable to do phenobarbital as this will reduce the serum concentrations of amiodarone
Eventual left heart catheterization as per cardiology
Brain MRI as per neurology
Failed DENTAL APPLIANCE MECHANIC today --> insert Dobbhoff tube
Start tube feeds
Can hold off on BiPAP tonight unless needed for increased WOB; check blood gas tomorrow morning
Trend serum creatinine + UOP, I/O
Low threshold to start PO Librium + Precedex if alcohol withdrawal worsens
Continue with ICU level of care
Assessment
-
Assessment: 69-year-old male former tobacco smoker with a past medical history of A-fib on Xarelto who presents with whp-fi-tstjptxk cardiac arrest. 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
a total of 7 shocks, 8 mg of epi and 450 mg of amiodarone. Patient intubated in the field, and brought to the ER where he was found to be in ROSC. He reportedly was in V-fib rhythm. ROSC obtained approximately 20 minutes after collapsing.
Patient was unresponsive in the ER not following commands or awakening. Therapeutic hypothermia was started and he was transferred to the ICU for further care with well logger services consulted for additional recommendations/management.
Chronic conditions [employer] COUNSELOR: A-fib, hypertension, long QT syndrome, history of prostate cancer, obesity, former tobacco smoker, alcohol use disorder
Impression:
#Jiz-se-utekabge cardiac arrest (reportedly V-fib arrest) s/p ROSC after multiple shocks, epinephrine + amiodarone
#Acute respiratory failure with hypoxia + hypercapnia requiring mechanical ventilation --> intubated 06/19/2024, extubated 06/20/2024
#Acute pulmonary edema, likely cardiogenic due to acute HFrEF exacerbation
#RV dilation with mildly reduced RV systolic function
#Alcohol use disorder
#Leukocytosis
#Hypokalemia
#Lactic acidosis
#Hypophosphatemia
#Transaminitis with hyperbilirubinemia
#Rhabdomyolysis (mild)
#Elevated troponin due to cardiac arrest (peaked at 11.5 on 06/19/2024)
#Abnormal urinalysis suspicious for UTI
#Hyperglycemia
Plan:
-On 06/20/2024, patient woke up after sedation was weaned off and he was extubated to BiPAP and has since been following commands.
- Therapeutic hypothermia stopped however we are still avoiding fever for the next 1-2 days
- Therapeutic hypothermia equipment being removed and the patient today
- Keep core temperature-sensing probe in place for at least 48 hours s/p reaching normothermia to assure that fevers avoided at all costs
- Neurology consulted and recs appreciated; repeat EEG done today shows mild, frontal cortical slowing; previous EEG showed no seizures
- Brain MRI pending
- Echo --> shows reduced LVEF at 30% with global hypokinesis, RV dilation with mildly reduced RV function and mild pulmonary hypertension
- Cardiology consulted to defer ischemic evaluation to them --> he will eventually need a left heart catheterization and possibly an ICD versus LifeVest
- Deferred GDMT to cardiology
- Resume BB today --> since he cannot swallow (failed DENTAL APPLIANCE MECHANIC), I will use coreg instead of toprol-XL
- continue amio
- heparin gtt
- Given his cardiac arrest with high likelihood for aspiration ammonia and his abnormal urinalysis, started antibiotics with Unasyn on 06/20
- Given the degree of acute pulmonary edema seen on imaging, maintain net negative fluid balance as tolerated
- Given his Hx of EtOH use, continue thiamine, folate and MSAS
- Maintain SpO2 >94% with supplemental oxygen
- Use BiPAP prn; considering that we are starting tube feeds, can hold off on BiPAP tonight with sleep unless he has increased work of breathing; check blood gas tomorrow morning to assess stability of pH + pCO2
- Unable to start phenobarbital given that it will reduce serum concentrations of amiodarone
- Trend LFTs and T. bili
- Maintain SpO2 >90-94%
- Maintain MAP>65
- Trend lactate until <2mmol/L
- Replete electrolytes with K>4, Mg>2
- Maintain euglycemia with goal BG 140-180 with q6hr ISS
- Trend H/H and transfuse if needed to keep Hb>7g/dL; kep plt>20k, unless there is concern for bleeding then keep plt>50k
- prn nebulized bronchodilators - not currently bronchospastic
- Incentive spirometer encouraged 10x per hour for at least 4 hrs a day
- DVT ppx: heparin gtt
Given patient's excessive alcohol use with concern for worsening acute alcohol withdrawal and high nursing needs, continue with ICU level of care. If he remains stable by tomorrow with no acute overnight events reported, will downgrade to IMU at
that time.
Total time spent today was 78 minutes for this encounter. Time includes reviewing laboratory test/imaging results, reviewing pertinent medical records, obtaining and reviewing medical history, performing an appropriate exam, ordering medications,
tests and procedures. Time also includes documentation of this encounter, coordinating patient care and communicating with other healthcare professionals. Total time does not include separately billed tests performed on this date of service.
Data:
CXR 06/21/2024: Cardiomegaly with borderline pulmonary edema.
TTE 06/20/2024:
Normal left ventricular chamber size. Moderately reduced left ventricular
systolic function. Left ventricular ejection fraction is 30% by Naqvi's
Method of Disc. Global hypokinesis. Mild concentric left ventricular
hypertrophy.
Right ventricle is likely dilated.. Mildly reduce RV function.
Subjective Dataa
Subjective Data
Date of Service:
Date of Service: June 21, 2024
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
Subjective:
Patient seen and evaluated this morning. Agitated overnight requiring Ativan. He is net -300 cc over the last 24 hours. He is awake, alert this morning, however not communicating with me. Heart rate 94 on amiodarone at 0.5mg/min and heparin gtt.
MSAS this AM is 7. Family at bedside, and all questions were answered. BP 109/58, saturating 95% on 4 L/min. Afebrile overnight. Wore BiPAP overnight at 15/6 bled with 12L/min.
Review of Systems
General: Other (Unable to obtain due to patient's acute clinical status/non-communicative)
Objective Data
Data Reviewed
Vital Signs / I&O / Oxygen:
Vital Signs
Temp Pulse Resp BP Pulse Ox
98 F 94 18 119/72 96
06/21/24 08:10 06/21/24 07:40 06/21/24 07:40 06/21/24 07:00 06/21/24 08:09
Intake and Output
06/20/24 06/21/24 06/22/24
06:59 06:59 06:59
Intake Total 1433.1 / 1541.8 997.4 / 1024.1 80.1 / 80.1
Output Total 60 / 60 1297 / 1327 85 / 85
Balance 1373.1 / 1481.8 -299.6 / -302.9 -4.9 / -4.9
SaO2 [CPAP] 97
SaO2 [A/C] 100
SaO2 96
Nasal Cannula flow liters per 4
minute
Physical Exam
General: Respiratory Distress (negative), Comfortable, Chills (negative) and Sweats (negative)
HEENT: Normocephalic and Anicteric
Cardiovascular: S1-S2, Murmur (DONALD heard best at LUSB) and Peripheral Edema (negative)
Respiratory: Wheeze (negative), Crackles (Bilateral), Rhonchi (negative) and Non-Labored Respirations
GI: Soft, Non Distended, Non Tender and Normal Bowel Sounds
Neurology: Awake, Alert and Tremors (negative)
Skin: Warm, Dry and Jaundice (negative)
Labs/Micro/Reports
Lab Data
06/21/24 06:16
06/21/24 06:16
Laboratory Results
06/20/24 06/20/24 06/20/24
10:00 10:07 12:21
PT
INR
APTT Cancelled 67.8 H
pH Cancelled
pCO2 Cancelled
pO2 Cancelled
HCO3 Cancelled
O2 Delivery Level Cancelled
06/20/24 06/20/24 06/21/24
13:07 18:02 00:49
PT
INR
APTT 68.8 H 95.6 H
pH 7.33 L
pCO2 45
pO2 129 H
HCO3 23.7
O2 Delivery Level Not Reportable
06/21/24
06:16
PT 14.8 H
INR 1.18
APTT 101.0 H
pH
pCO2
pO2
HCO3
O2 Delivery Level
--- NOTE | 2024-06-21 08:12 | PTCARENOTE ---
during walking rounds with vocational rehabilitation administrator pt on bipap had pulled out three iv lines. bipap removed placed on 4l nc o2 sat 96%. notified dr restraints ordered. pt awake can say name following some simple commands confused about condition. still
pulling at gown and restraints. msas 7 ativan given as ordered. states no pain. slow garbled speech. chg bath done serrano care done. pt remains on TTM to maintain normothermia current temp 98.0. pt inc of small bn stool. amio and heparin gtts
running as ordered. nsr seen on monitor.
--- NOTE | 2024-06-21 10:30 | W.PN.CARDCBS ---
Addendum entered and electronically signed by Kim Muñoz MD 06/21/24 10:45:
Eventually when able and blood pressure stable consider guideline directed medical therapy of heart failure with reduced ejection fraction as tolerates.
Original Note:
Today's Communication / Plan
-
Given cardiac arrest and ejection fraction of 30% with peak troponin 11 eventual right and left heart cath. Plan initially was for tomorrow but given mental status will reassess tomorrow.
Primary service to assess mental status and possible alcohol withdrawal
Continue supportive care
Continue to follow volume status
Impression / Plan
-
Primary [employer]: Dr. Fulton, last seen 09/2023
Assessment:
Presentation with witnessed OOH arrest, VF s/p 8 rounds of epi and 7 shocks with ROSC, now on TTMP, intubated
Confusion possible alcohol withdrawal currently
Hypotension requiring pressor support
Leukocytosis
Lactic acidosis
Hypokalemia
Elevated troponin
Elevated LFTs
Hypomagnesemia, improved
PAF on chronic xarelto
History of prolonged QTc
HTN
prostate cancer s/p prostatectomy 2017
former smoker
ETOH use disorder
VIRGILIO 04/20/23: EF 50 to 55%, mild TR, PAP 60 mmHg, no thrombus detected in LINDSAY, CV followed
Plan:
-Patient presents with witnessed OOH VF arrest requiring 8 rounds epi and 7 shocks with ROSC. He underwent cooling protocol.
-He is now extubated but may have some alcohol withdrawal/TME/confusion. Seems a bit confused did not clearly answering questions. Defer to primary service and manager of disaster recovery.
-Given cardiac arrest and ejection fraction of 30% with peak troponin 11 eventual right and left heart cath. Plan initially was for tomorrow but given mental status will reassess tomorrow.
-initial EKG SR with 1st degree av block. on tele with occasional brief wide complex rhythm. continue IV amiodarone. Not taking orals yet eventually convert to oral amiodarone.
-rectal asa given 06/20/2024 and will start a one 1 mg aspirin as long as can take orals.
-Start statin CVA noted.
-Has PAF continue IV heparin. on xarelto as OP.
-hypotension requiring epi @4, levo@16. wean as able
-Continue to follow volume status.
-MSAS protocol given daily ETOH use
-d/w nursing
Progress Note - [employer]
Subjective
Date of Service: June 21, 2024
Unable to clearly answer questions. Does not appear to be having chest pain.
Objective
Labs:
06/21/24 06:16
06/21/24 06:16
Labs
Hgb 12.5 g/dL (13.0-18.0) L 06/21/24 06:16
Hct 36.0 % (39.0-52.0) L 06/21/24 06:16
Plt Count 124 10^3/uL (130-400) L D 06/21/24 06:16
PT 14.8 Sec (11.4-14.6) H 06/21/24 06:16
INR 1.18 06/21/24 06:16
APTT 101.0 Sec (23.4-35.0) H 06/21/24 06:16
Sodium 135 mmol/L (135-145) 06/21/24 06:16
Potassium 4.5 mmol/L (3.5-5.1) D 06/21/24 06:16
BUN 27 mg/dl (9-20) H 06/21/24 06:16
Creatinine 1.6 mg/dL (0.7-1.3) H 06/21/24 06:16
Glucose 136 mg/dl (70-99) H 06/21/24 06:16
Troponins
06/19/24 06/19/24 06/20/24
18:20 23:52 05:55
Troponin I 0.064 H* 11.500 H* D 8.010 H* D
06/20/24
16:32
Troponin I 4.000 H*
Vital Signs and I&O:
Vital Signs
Temp Pulse Resp BP Pulse Ox
98 F 94 18 119/72 96
06/21/24 08:10 06/21/24 07:40 06/21/24 07:40 06/21/24 07:00 06/21/24 08:09
Vital Signs
Temp Pulse Resp BP Pulse Ox
98 F 94 18 119/72 96
06/21/24 08:10 06/21/24 07:40 06/21/24 07:40 06/21/24 07:00 06/21/24 08:09
Intake & Output
06/19/24 06/20/24 06/21/24 06/22/24
06:59 06:59 06:59 06:59
Intake Total 1433.1 / 1541.8 997.4 / 1024.1 80.1 / 80.1
Output Total 60 / 60 1297 / 1327 85 / 85
Balance 1373.1 / 1481.8 -299.6 / -302.9 -4.9 / -4.9
Physical Exam
Physical Exam
General: Elderly man unable to answer clear questions
Heart: Distant heart sounds no obvious murmur
Lungs: Coarse anterior breath sounds
Extremities: No clubbing, cyanosis trace to +1 edema bilaterally.
Neuro: Quiet voice seems confused
--- NOTE | 2024-06-21 11:34 | W.PN.NEURO.1 ---
Addendum entered and electronically signed by Marilee Resendez, 06/21/24 14:17:
Discussed with MRI and the ICU; he will go for MRI brain at ~3pm today.
He is a on heparin gtt and has focality on exam so want expedited imaging to evaluate for stroke.
Addendum entered and electronically signed by Marilee Resendez, 06/21/24 14:09:
Studies reviewed.
I have personally examined the patient. I agree with the COMPUTER REPAIR ENGINEER's Note.
My addenda:
69 year-old male s/p vfib cardiac arrest, ROSC achieved after ~20 mins, underwent TTM and was extubated this morning. He has a history of daily ETOH use.
I examined him this morning and he was aphasic, dysarthric and appeared very confused. He followed some very basic commands and exhibited some L sided neglect. By the time Barbra from our team examined the patient, he was able to hold conversation
and was oriented to self but remained confused. He also has evidence of maceration on the L side of his tongue.
Given these findings, will repeat his EEG to evaluate for evaluate further for seizure and will check MRI brain w/wo contrast.
Agree with remainder of plan as documented below.
Will continue to follow.
Critical care time 50 mins
Original Note:
Documented by User: Barbra Luna NP 06/21/24 13:37
Today's Communication / Plan
-
.
Neuro Assessment/Plan
Assessment
This is a 69-year-old RH male who presented to on 06/19/24 with report of Vfib cardiac arrest. ROSC achieved in 20 about 20 minutes after 8 rounds of Epi/7 shocks/CPR. Patient underwent cooling protocol and was extubated successfully on 06/20/24.
Chronic daily alcohol usage.
-CT Head 06/19/24: No acute intracranial abnormality noted. Mild senescent changes, similar to prior.
-CT Cervical Spine 06/19/24: No acute osseous abnormality. Multilevel degenerative changes. There are findings of likely severe pulmonary edema, less likely infectious process within the bilateral lung apices.
-EEG 06/20/24: Mildly to moderately abnormal EEG for age due to diffuse bihemispheric slowing
I. S/P cardiac arrest, approximately 20 minute downtime. Underwent cooling, successfully extubated, follows commands and is conversant.
II. Ongoing confusion uncertain etiology; TME, alcohol withdraw, vascular, vs epileptic. Patient has a left tongue hematoma, unclear if this is related to intubation/collapse/seizure. Some left-sided inattention/ataxia, cannot entirely exclude
ischemic stroke.
III. Afib (Xarelto).
III. Chronic daily alcohol usage.
Plan
-Repeat routine EEG pending.
-MRI brain noncontrast pending.
-Continue aspirin 81mg daily.
-Neurological checks and NIHSS per unit guidelines.
-MSAS protocol. Thiamine/folic acid replacement.
-PT/OT/ST
-DVT prophylaxis.
-Will follow.
Subjective/Objective
Subjective Data
Date of Service: June 21, 2024
Patient was extubated overnight. Awake, alert, confused; appears dyspneic on oxygen via nasal cannula.
Objective Data
Vital Signs
Temp Pulse Resp BP Pulse Ox
98.0 F 94 26 113/83 95
06/21/24 11:00 06/21/24 10:30 06/21/24 10:30 06/21/24 10:00 06/21/24 09:00
Lab Results
06/21/24 06:16
06/21/24 06:16
PT 14.8 Sec (11.4-14.6) H 06/21/24 06:16
INR 1.18 06/21/24 06:16
APTT 101.0 Sec (23.4-35.0) H 06/21/24 06:16
Sodium 135 mmol/L (135-145) 06/21/24 06:16
Potassium 4.5 mmol/L (3.5-5.1) D 06/21/24 06:16
BUN 27 mg/dl (9-20) H 06/21/24 06:16
Glucose 136 mg/dl (70-99) H 06/21/24 06:16
Calcium 8.3 mg/dl (8.4-10.2) L 06/21/24 06:16
Phosphorus 5.4 mg/dl (2.5-4.5) H 06/21/24 06:16
Gzh-W-Emwqpjtkeew Pept 64979 pg/ml 06/21/24 06:16
LDL Cholesterol, Calc 50 mg/dl 06/20/24 05:55
Patient Allergies
No Known Allergies Allergy (Unverified 04/19/23 15:30)
Review of Systems
-
History Source: Patient
EENT: Negative Blurry Vision, Decreased Vision or Swallowing Difficulty
Respiratory: Trouble Breathing; Negative Cough
Cardiac: Negative Chest Pain or Palpitations
Abdomen/GI: Negative Nausea
Neuro: Negative Dizzy, Headache, Weakness, Numbness, Ataxia, Tremors or Speech Problem
Physical Exam
-
General: Wearing Oxygen
Eyes: No Ptosis and PERRLA
HEENT: Normocephalic and Atraumatic
Neck: Full Range of Motion
Respiratory: No Dyspnea
GI: Non-distended
Extremities: No Clubbing, No Cyanosis and No Edema
Psych: Confused
Extended Neurological Exam
Mood & Affect: Mood Unremarkable and Affect Unremarkable
Attention Span & Concentration: Awake, Alert and Severe Difficulty with 2 Step Request
Memory: Reduced (oriented to person only, not time/place/situation)
Tremor: Hand Tremor Absent and Head Tremor Absent
Involuntary Movement: None
Speech: Mildly Reduced Output and Dysarthric (dyspneic with prolonged conversation)
Cranial Nerve II: Left Eye: Pupillary Reactivity Unremarkable and Pupillary Size Unremarkable
Cranial Nerve II: Right Eye: Pupillary Reactivity Unremarkable, Pupillary Size Unremarkable and Visual Schaeffer Intact
Cranial Nerves III, IV, : Extraocular Movement: Extraocular Movement Full in all Directions
Cranial Nerve V: Facial Sensation: Intact to Light Touch
Cranial Nerve VII: Facial Symmetry: Normal Facial Symmetry
Cranial Nerve VIII: Hearing: Grossly Reduced
Cranial Nerves IX, X: Palate Movement: Palate Elevation Symmetric and Other (left tongue hematoma )
Cranial Nerve XI: Shoulder Shrug: Unremarkable
Cranial Nerve XII: Tongue Protusion: Midline
Muscle Strength, Overall: Reduced Throughout (NORRSI 4/5)
Muscle Bulk & Tone: Bulk Unremarkable and Tone Unremarkable
Pronator Drift: No Drift in Upper Extremities and No Drift in Lower Extremities
Touch Sensation: Double Simultaneous Stimulation Unremarkable and Other (slow to follow commands on the left side, some left-sided inattention)
Coordination: Negative Lsumfy-mjes-pdtnkx Testing Unremarkable (mildly ataxic LUE)
Babinski Sign: Absent Bilaterally
Gait & Station: Unable to Assess
Data Reviewed
-
CT Head: Report Reviewed and Image Reviewed
MRI Head: Pending
Labs: Report Reviewed
Reviewed with: Physician and Patient
Medications
-
Active Medications
Generic Name Dose Route Start Last Admin
Trade Name Freq PRN Reason Stop Dose Admin
Acetaminophen 650 mg 06/20/24 00:00 06/21/24 06:25
Acetaminophen (Oral Solution) 650 Mg/20.3 Ml Cup TUBE 06/24/24 00:00 Not Given
Q6 LIZA
Acetaminophen 650 mg 06/19/24 21:17 06/20/24 18:31
Acetaminophen 650 Mg Rectal Suppository RECTAL 06/23/24 21:16 650 mg
Q6HPRN PRN Administration
if cannot be given via tube
Albuterol/Ipratropium 3 ml 06/20/24 13:29 06/21/24 07:35
Ipratropium 0.5/Albuterol 3 Mg (3 Ml Ampul) INH 3 ml
R Q4HPRN PRN Administration
SOB/wheezing
Protocol
Aspirin 81 mg 06/21/24 11:00
Aspirin 81 Mg Chewable Tablet PO 07/19/24 10:59
DAILY LIZA
Atorvastatin Calcium 40 mg 06/21/24 18:00
Atorvastatin (Lipitor) 40 Mg Tablet PO 07/19/24 17:59
QPM LIZA
Dextrose 12.5 grams 06/20/24 22:00
Dextrose 50% (0.5 Grams/Ml) 50 Ml Syringe IV 07/18/24 21:59
[id number] PRN
hypoglycemia
Protocol
Fentanyl Citrate 50 mcg 06/20/24 14:05 06/20/24 14:10
Fentanyl (50 Mcg/Ml) 100 Mcg/2 Ml Ampul IV 07/04/24 14:04 50 mcg
[id number] PRN Administration
see protocol
Protocol
Folic Acid 1 mg 06/20/24 08:00 06/21/24 07:28
Folic Acid 1 Mg Tablet PO 07/18/24 07:59 Not Given
DAILY LIZA
Glucagon 1 mg 06/20/24 22:00
Glucagon 1 Mg Vial IM 07/18/24 21:59
PRN PRN
hypoglycemia - no IV access
Protocol
Amiodarone HCl 900 mg/ 518 mls @ 0 mls/hr 06/19/24 18:45 06/20/24 16:37
Dextrose/Water IV 518 mls
PER PROTOCOL LIZA Administration
Protocol
Per Protocol
Heparin Sodium 25,000 units in 250 mls @ 0 mls/hr 06/19/24 19:30 06/21/24 00:51
Heparin 39664 Units/250 Ml IV 250 mls
PER PROTOCOL LIZA Administration
Protocol
Per Protocol
Folic Acid 1 mg/ Sodium 50.2 mls @ 200.8 mls/hr 06/19/24 21:17
Chloride IV 07/17/24 21:16
DAILYPRN PRN
if NPO
Ampicillin Sodium/Sulbactam 120 mls @ 240 mls/hr 06/20/24 10:00 06/21/24 10:26
Sodium 3 gm/ Sodium Chloride IV 06/27/24 16:29 120 mls
Q6H LIZA Administration
Insulin Aspart 0 units 06/21/24 00:00 06/21/24 11:59
Insulin Aspart Moderate Resistance 300 Units/3 Ml Pen.Injctr SC 07/19/24 00:00 1 units
Q6 LIZA Administration
Protocol
Lorazepam 1 mg 06/20/24 13:17 06/21/24 12:06
Lorazepam 2 Mg/Ml Vial IV 07/18/24 13:16 1 mg
Q2HPRN PRN Administration
MSAS 5-7
Lorazepam 2 mg 06/20/24 13:17 06/21/24 00:16
Lorazepam 2 Mg/Ml Vial IV 07/18/24 13:16 2 mg
Q1HPRN PRN Administration
MSAS 8-11
Lorazepam 4 mg 06/20/24 13:17
Lorazepam 2 Mg/Ml Vial IV 07/18/24 13:16
Q1HPRN PRN
MSAS > 11
Sodium Chloride 0 flush 06/19/24 22:00
Sodium Chloride 0.9% (Flush) Syringe IV 07/17/24 21:59
PER PROTOCOL LIZA
Sodium Chloride 0 ml 06/20/24 15:00
Sodium Chloride 0.9% (Preservative Free) 10 Ml Vial IV 07/18/24 14:59
PRN PRN
IV Lorazepam dilution
Protocol
Thiamine HCl 100 mg 06/23/24 08:00
Thiamine 100 Mg Tablet PO 07/21/24 07:59
BID LIZA
Thiamine HCl 200 mg 06/20/24 00:00 06/21/24 07:44
Thiamine (100 Mg/Ml) 2 Ml Vial IV 06/22/24 16:01 200 mg
Q8 LIZA Administration
Home Medications
�Medication �Instructions �Recorded
metoprolol succinate 25 mg 25 mg PO DAILY #30 tabs 04/20/23
tablet,extended release 24 hr
magnesium oxide 600 mg PO DAILY Electrolyte 06/19/24
Repletion
rivaroxaban 20 mg tablet (Xarelto) 20 mg PO DAILY Blood Clot 06/19/24
Prevention/Tx
therapeutic multivitamin 1 tab PO DAILY Supplement 06/19/24
NIH Stroke Score
Subsequent NIH Scale
Date of Subsequent NIH Scale: 06/21/24
Time of Subsequent NIH Scale: 09:45
NIH Stroke Score
Level of Consciousness: 0 - Alert
LOC Questions: 1-Answers one correctly
LOC Commands: 0-Performs both correctly
Best Horizontal Gaze: 0-Normal
Visual Schaeffer: 0=Normal, no visual loss
Facial Palsy: 0=Normal, symmetrical
Motor - Right Arm: 0=No drift 10 seconds
Motor - Left Arm: 0=No drift 10 seconds
Motor - Right Le-No drift 5 seconds
Motor - Left Le-No drift 5 seconds
Limb Ataxia: 1-Present in one limb
Sensation: 0-Normal
Best Language: 0-No aphasia
Dysarthria: 0-Normal
Extinction and Inattention: 1-Sensory inattention
Total Score:: 3

Documented by User: Marilee Resendez DO 06/21/24 14:02
NIH Stroke Score
NIH Stroke Score
Total Score:: 3
[2024-06-21 11:56] LABS: Glucose - Point of Care 157 mg/dl (70-99)
--- NOTE | 2024-06-21 11:57 | PN.CDI ---
CDI
- -
CDI:
Physician Documentation Request
Admit Date: 06/19/24 21:06
Dear Doctor Meño,
Clinical Indicators:
Patient admitted with VF cardiac arrest.
06/19 (22:00) RN note,'Levophed gtt infusing for BP support...Legs appeared mottled.'
Vasopressor requirements: Levophed 2 -25 mcg/min Epinephrine 2-4 mcg/min
BP trend:
06/19/24
22:55 06/19/24
23:05 06/20/24
00:30
Arterial Systolic Pressure 87 86 87
Arterial Diastolic Pressure 58 53 60
06/20/24
01:00
Arterial Systolic Pressure 83
Arterial Diastolic Pressure 58
Please clarify which of the following is the most likely etiology of the above symptoms and treatment rendered:
Cardiogenic shock
Other shock, please specify
Hypotension only
Other
Use of terms such as suspected, likely, concern for, or probable (associated with a specific diagnosis that is being evaluated, monitored, or treated as if it exists) are acceptable and can be coded in the inpatient setting, when documented at the
time of discharge.
Thank you,
Sandie Perea RN BSN
CDI Specialist
available via tiger text
Please use your independent medical judgment in providing your response.
[2024-06-21] MEDS: NOVOLOG FLEXPEN-MODERATE RESISTANCE 1 UNITS SC (11:59)
--- NOTE | 2024-06-21 12:11 | PN.CDI ---
CDI
- -
CDI:
Physician Documentation Request
Admit Date: 06/19/24 21:06
Dear Doctor Meño,
Clinical Indicators:
Patient admitted with VF cardiac arrest.
Cr/GRF trend:
06/19/24 06/20/24
18:20 12:21
Creatinine 0.9 1.5 H
eGFR > 60.00 50.40
Please clarify which of the following accurately represents the patient's renal status:
TERA
Rise in creatinine only
Other
Criteria for TERA*
1 Increase in serum creatinine by > or = to 0.3 mg/dL (> or = to 26.5 micromol/L) within 48 hours, OR
2 Increase in serum creatinine to > or = to 1.5 times baseline, which is known or presumed to have occurred within 7 days, OR
3 Urine volume < 0.5 nL/kg/hour for six hours
Use of terms such as suspected, likely, concern for, or probable (associated with a specific diagnosis that is being evaluated, monitored, or treated as if it exists) are acceptable and can be coded in the inpatient setting, when documented at the
time of discharge.
Thank you,
Sandie Perea RN BSN
CDI Specialist
available via tiger text
Please use your independent medical judgment in providing your response.
*Source: Kidney Disease: Improving Global Outcomes (KDIGO) 2012
--- NOTE | 2024-06-21 12:48 | W.PN.HOSP.TC ---
Today's Communication/Plan
-
Continue with heparin
Trend creatinine
Monitor mentation closely
Continue with IV antibiotics
Continue with alcohol withdrawal protocol
Assessment / Plan
Assessment / Plan
A/P: 69y M with PMH significant for A-Fib and alcohol use disorder who presents to ED after jpm-cx-[id number] arrest.
Cardiac Arrest
Ventricular Fibrillation
History of Prolonged QT
Lactic Acidosis secondary to the above
Acute respiratory failure with hypoxemia and hypercapnia status post intubation on mechanical ventilation
- Status post intubation on admission and status post extubation 06/20
- IV Amiodarone protocol.
- Targeted temperature management protocol-Dced as awake
- Follow for cognitive recovery
- Sewer Line Photo Inspector and Neurology evaluations for additional recommendations.
- Differential etiology of arrest includes acute ischemia / CAD, arrhythmia due to long QT, etc. based on neurological recovery probably will require catheterization
- CT head -no acute intracranial abnormality. Mild age-related changes.
Toxic Metabolic encephalopathy likely due to ICU delirium versus alcohol withdrawal
Severe alcohol use disorder daily ab
- reports significant EtOH intake. Approximately 3 L of vodka weekly
- No history of withdrawal syndromes, seizures, etc.
- Follow MSAS - any withdrawal symptoms should be controlled with current sedation, cooling regimen, etc.
- May require Precedex for severe agitation.
Dysphagia likely due to post extubation in mentation
-Speech recommending strict n.p.o. for now
Elevated troponin secondary to cardiac arrest status post defibrillation
- No STEMI on initial EKG.
- IV heparin for now.
- Cardiology evaluation as noted above.
- Defer ischemic evaluation to cardiology.
Cardiogenic Pulmonary Edema
Acute HFrEF
- Noted on CXR and CT neck.
- Check Echo-normal left ventricular chamber size. Moderate reduced left ventricular systolic function. EF 30%. Global hypokinesis. Mild concentric LVH. Right ventricle is mildly dilated. Mildly reduced RV function.
- Cardiology eval as noted above. Plan for goal-directed medical therapy once stabilization of blood pressure
Acute kidney injury likely secondary to cardiac arrest leading to ATN
-Monitor urinary output. Status post IV Lasix yesterday
-If no improvement will require nephrology evaluation.
Hypotension status post pressors
-BP starting to stabilize
Paroxysmal Atrial Fibrillation
- Currently in sinus rhythm with 1st degree AV block.
- Hold Xarelto acutely - on IV heparin for now.
- Monitor on telemetry.
- On IV Amio at present. Add rate-control agents if needed.
Leukocytosis
-started on Unasyn per yarding engineer.
-?aspiration pneumonia
Transaminitis likely secondary to cardiac arrest
-Continue to trend for now.
Hypomagnesemia
-Replete monitor
History of Prostate Cancer
- s/p prostatectomy
- Campos in place.
Hypophosphatemia/Hypokalemia
-replete/monitor
Mild thrombocytopenia
-trend platelets closely
DVT Prophylaxis: On IV Heparin
GI ppx- IV PPI
Code Status: Full
Discussed with patient spouse and DIL at bedside in details
Discussed with yarding engineer
Total Critical Care Time_ 35 minutes. I was immediately available to the patient and staff. I personally examined, reviewed labs, diagnostic images/reports, interpretations, treatment plans, discussed patient care with other providers and family
or caregivers (if patient is unable to make decisions), entered orders as appropriate and documented the medical record.
Anticipated Discharge: > 48 hours
Subjective/Interval History
-
Date of Service: June 21, 2024
Awake but not alert or oriented
agitated and requiring restraints
s/p extubation and now requiring oxygen
Objective Data
-
Labs:
Laboratory Results
06/21/24 06/21/24 06/21/24
00:49 06:16 16:30
WBC 22.6 H Pending
Hgb 12.5 L Pending
Hct 36.0 L Pending
Plt Count 124 L D Pending
PT 14.8 H
INR 1.18
APTT 95.6 H 101.0 H
Sodium 135
Potassium 4.5 D
Chloride 96 L
Carbon Dioxide 21 L
BUN 27 H
Creatinine 1.6 H
Glucose 136 H
Calcium 8.3 L
Total Bilirubin 1.7 H
AST 143 H
ALT 96 H
Alkaline Phosphatase 75
Vital Signs:
Vital Signs
Temp Pulse Resp BP Pulse Ox
98.0 F 93 34 109/80 93
06/21/24 11:00 06/21/24 11:30 06/21/24 11:30 06/21/24 11:00 06/21/24 11:30
I&O
06/20/24 06/21/24 06/22/24
06:59 06:59 06:59
Intake Total 1433.1 / 1541.8 997.4 / 1024.1 280.2 / 280.2
Output Total 60 / 60 1297 / 1327 185 / 185
Balance 1373.1 / 1481.8 -299.6 / -302.9 95.2 / 95.2
Physical Exam
-
General: Appears Chronically Ill
HEENT: Normocephalic, Atraumatic and Moist Mucous Membranes
Respiratory: Decreased Breath Sounds
Cardiac: Regular Rhythm and S1/S2
GI: Soft, Nontender, Nondistended and Normal Bowel Sounds
Genito-urinary: Campos
Neuro: Awake; Negative Slurred Speech or Facial Droop
Psych: Confused
--- NOTE | 2024-06-21 13:07 | PTOTSP ---
SPEECH THERAPY SWALLOW EVALUATION:
Patient exhibits clinical signs of oropharyngeal dysphagia, likely acutely related to cardiac arrest, anoxic encephalopathy, and recent endotracheal extubation. Patient remains at high risk for aspiration and related complications at this time given
tenuous respiratory status and confusion, as well as risk for decline due to etoh withdrawal. Recommend temporary strict NPO; Consider temporary non-oral means for nutrition/medication/hydration. Speech therapy to follow, re-assess in 24 hours,
determine readiness for additional p.o. trials/textures, and determine indication for instrumental assessment of swallowing as appropriate.
RECOMMEND:
1) NPO
2) consider temporary non-oral means for nutrition/medication/hydration
3) Speech therapy to follow, re-assess in 24 hours
--- NOTE | 2024-06-21 13:25 | PTCARENOTE ---
pt remains oriented to self agitated at times msas 6-7 ativan given as ordered. serrano removed. family at bedside for rounds. reviewed pt condition and plan of care.
--- NOTE | 2024-06-21 14:05 | PTCARENOTE ---
nihss done. pt following commands. pt not looking left. some slurring of words. movement in all ext. does not know month or place.
--- NOTE | 2024-06-21 15:42 | EEG.RPT ---
Electroencephalogram Report
Recording
Date of EE06/21/24
Type of EEG: Routine
Length of EEG recordin minutes
Done with Video Recording: Yes
Patient Status: Inpatient
Recording Conditions: Awake and Drowsy
Hyperventilation Performed: No
Photic Stimulation Performed: Yes
Report
GREATER THAN 1 HOUR REPORT
GREATER THAN 1 HOUR EEG INTERPRETATION:
Mildly abnormal EEG due to bilateral intermittent frontal rhythmic slowing
CLINICAL CORRELATION:
This study was mildly suggestive of mild, frontal cortical slowing.
Clinical correlation is advised.
METHODS:
A 21 channel digitized electroencephalogram (EEG) was performed at the bedside in the ICU. The 10/20 international system of electrode placement was used with ECG and lateral/vertical eye movements recorded. Persyst quantitative EEG evaluation was
performed.
ELECTROENCEPHALOGRAPHER IMPRESSION(S):
Quality of study
Fair-Good
Background
Amplitude: medium
Anterior-posterior voltage gradient
Maximal Frequency: continuous beta activity with variability
There were no significant asymmetries of background activity noted.
Sleep
Drowsiness present
Hyperventilation
Not performed
Photic Stimulation
No activation of the record
ECG
Unremarkable
Abnormal EEG Activity
Intermittent bilateral frontal delta-frequency slowing (BIRDs) lasting up to 2 seconds without clinical correlate was demonstrated.
[2024-06-21 18:26] LABS: Hemoglobin 12.2 g/dL (13.0-18.0); Mean Corp Hgb Conc. 34.9 g/dL (33.0-37.0); Mean Corpuscular Hgb 34.4 pg (27.0-31.0); Mean Corpuscular Volume 98.6 fL (80.0-94.0); Mean Platelet Volume 12.4 fL (7.4-10.4); Platelet Count 113 10^3/uL (130-400); Red Blood Cell Count 3.55 10^6/uL (4.70-6.10); Red Cell Dist. Width 12.9 % (11.5-14.5); White Blood Cell Count 23.6 10^3/uL (4.8-10.8)
[2024-06-21 18:40] LABS: Glucose - Point of Care 138 mg/dl (70-99)
[2024-06-21] MEDS: LIPITOR 40 MG PO (19:45)
[2024-06-21] MEDS: LOW STRENGTH ASPIRIN 81 MG PO (19:45)
[2024-06-21] MEDS: TYLENOL ORAL SOLUTION 650 MG TUBE (19:46)
[2024-06-21] MEDS: COREG 6.25 MG PO (19:46)
--- NOTE | 2024-06-21 20:00 | PTCARENOTE ---
Assumed care of patient. Patient resting in bed, bedside. Patient on 4LNC, restrained. artic sun on patient per protocol. Assessed patient, see flowsheets. Patient NIH- 3, neuro checks WNL. Patient incontinent, changed and repositioned. Safety
maintained. Call salinas within reach.
[2024-06-21 23:16] LABS: Glucose - Point of Care 130 mg/dl (70-99)
[2024-06-22] VITALS (23 sets, daily range): BP systolic 85–147; BP diastolic 60–131; PULSE 3–74; BMI 33.9
--- NOTE | 2024-06-22 | PTCARENOTE ---
No major changes in assessment. Patient off restraints, on bipap. tolerating well. Tube feeds started @2200, jevity 1.5 @20 (goal 55) with 25cc/hr flush. Remains on artic sun. Will continue to monitor.
[2024-06-22] MEDS: TYLENOL ORAL SOLUTION 650 MG TUBE ×2 (00:17→06:06)
[2024-06-22] MEDS: THIAMINE INJECTION 200 MG IV ×3 (00:17→17:49)
[2024-06-22] MEDS: CORDARONE 518 MG IV (00:18)
[2024-06-22] MEDS: UNASYN IV ×2 (03:44→09:59)
[2024-06-22 04:03] LABS: Venous Blood Gas B.E. -1.7 mmol/L (-4 to +4); Venous Blood Gas HCO3 25.5 mmol/L (22-27); Venous Blood Gas O2 Sat % 85.1 %; Venous Blood Gas pCO2 53 mmHg (35-48); Venous Blood Gas pH 7.29 (7.32-7.43); Venous Blood Gas pO2 53 mmHg (30-50)
[2024-06-22 04:21] LABS: INR 1.19; PT 15.1 Sec (11.4-14.6)
[2024-06-22] MEDS: HEPARIN 25000 UNITS/250 ML IV (04:21)
[2024-06-22 04:22] LABS: APTT 64.4 Sec (23.4-35.0)
[2024-06-22 04:24] LABS: Hematocrit 32.2 % (39.0-52.0); Hemoglobin 11.2 g/dL (13.0-18.0); Mean Corp Hgb Conc. 34.8 g/dL (33.0-37.0); Mean Corpuscular Hgb 35.2 pg (27.0-31.0); Mean Corpuscular Volume 101.3 fL (80.0-94.0); Mean Platelet Volume 12.7 fL (7.4-10.4); Platelet Count 96 10^3/uL (130-400); Red Blood Cell Count 3.18 10^6/uL (4.70-6.10); Red Cell Dist. Width 12.7 % (11.5-14.5); White Blood Cell Count 18.6 10^3/uL (4.8-10.8)
[2024-06-22 04:38] LABS: ALT (SGPT) 77 U/L (0-50); AST (SGOT) 96 U/L (17-59); Albumin 3.2 g/dl (3.5-5.0); Alkaline Phosphatase 63 U/L (38-126); Blood Urea Nitrogen 45 mg/dl (9-20); Calcium 7.9 mg/dl (8.4-10.2); Carbon Dioxide 25 mmol/L (22-30); Chloride 95 mmol/L (98-107); Creatine Phosphokinase 1518 U/L (55-170); Estimated Creatinine Clearance 42 ml/min; Glucose 152 mg/dl (70-99); Magnesium 1.8 mg/dl (1.6-2.3); Potassium 4.3 mmol/L (3.5-5.1); Sodium 135 mmol/L (135-145); Total Bilirubin 1.4 mg/dl (0.2-1.3); Total Protein 5.7 g/dl (6.3-8.2); Triglycerides 94 mg/dl (10-149); eGFR 40.49
[2024-06-22 04:47] LABS: Prealbumin (Transthyretin) 11.9 mg/dl (17.6-36.0)
[2024-06-22] MEDS: NOVOLOG FLEXPEN-MODERATE RESISTANCE SC ×3 (05:38→17:49)
[2024-06-22 05:46] LABS: Glucose - Point of Care 143 mg/dl (70-99)
--- NOTE | 2024-06-22 06:30 | PTCARENOTE ---
patient removed dobhoff. Pt was out of restraints due to being on bipap. Pt had started pulling bipap off so switched to 4LNC. Patient confused and redirectable. When going back to do final rounds on patient, found the dobhoff in the bed. Will
notify dayteam.
[2024-06-22] MEDS: FOLVITE PO (07:30)
--- NOTE | 2024-06-22 08:00 | PTCARENOTE ---
Assumed care of patient at 0645. Assessment completed and documented in shift assessment on worklist.
Patient is AAOXself, disoriented to place/time/situation. Forgetful, easily directable. Follows all commands appropriately, NIH 2. MSAS 3.
Redressed right femoral line dressing and placed external urinary device to avoid CLABSI. Heparin and Amiodarone gtt drip running as ordered.
--- NOTE | 2024-06-22 08:18 | W.PN.INTV ---
Today's Communication / Plan
Recommendations
MSAS with thiamine/folate
Unable to do phenobarbital as this will reduce the serum concentrations of amiodarone
Eventual left heart catheterization as per cardiology
Passed DIRECTOR INTEGRATED eval today --> start PO diet and resume home PO meds
BiPAP with sleep and trend blood gas to assure pH and pCO2 are stable
Trend serum creatinine + UOP, I/O
Patient is stable for downgrade out of ICU to IMU. Pulmonary service will continue to briefly follow along.
Assessment
-
Assessment: 69-year-old male former tobacco smoker with a past medical history of A-fib on Xarelto who presents with [id number]-acdqmuyd cardiac arrest. He was at an [employer] shop when he collapsed, bystander CPR initiated and EMS arrived giving
a total of 7 shocks, 8 mg of epi and 450 mg of amiodarone. Patient intubated in the field, and brought to the ER where he was found to be in ROSC. He reportedly was in V-fib rhythm. ROSC obtained approximately 20 minutes after collapsing.
Patient was unresponsive in the ER not following commands or awakening. Therapeutic hypothermia was started and he was transferred to the ICU for further care with web assistant services consulted for additional recommendations/management.
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
Impression:
#Mza-of-hbvimmpc cardiac arrest (reportedly V-fib arrest) s/p ROSC after multiple shocks, epinephrine + amiodarone
#Acute respiratory failure with hypoxia + hypercapnia requiring mechanical ventilation --> intubated 06/19/2024, extubated 06/20/2024
#Acute pulmonary edema, likely cardiogenic due to acute HFrEF exacerbation
#RV dilation with mildly reduced RV systolic function
#Alcohol use disorder
#Leukocytosis
#Hypokalemia - resolved
#Lactic acidosis - resolved
#Hypophosphatemia - resolved
#Transaminitis with hyperbilirubinemia
#Rhabdomyolysis (mild)
#TERA
#Elevated troponin due to cardiac arrest (peaked at 11.5 on 06/19/2024)
#Abnormal urinalysis suspicious for UTI
#Hyperglycemia - resolved
Plan:
- On 06/20/2024, patient woke up after sedation was weaned off and he was extubated to BiPAP and has since been following commands.
- Therapeutic hypothermia stopped
- Therapeutic hypothermia equipment will be removed today
- Okay to remove core temperature-sensing probe
- Neurology consulted and recs appreciated; repeat EEG done 06/21/2024 shows mild, frontal cortical slowing; previous EEG showed no seizures
- Brain MRI done on 06/21/2024 shows no acute intracranial abnormality
- Echo --> shows reduced LVEF at 30% with global hypokinesis, RV dilation with mildly reduced RV function and mild pulmonary hypertension
- Cardiology consulted to defer ischemic evaluation to them --> he will eventually need a left heart catheterization and possibly an ICD versus LifeVest
- Defer GDMT to cardiology
- Resumed BB on 06/21/2024 --> since he cannot swallow (failed DIRECTOR INTEGRATED on 06/21), I will use coreg instead of toprol-XL
- continue amio
- heparin gtt
- Given his cardiac arrest with high likelihood for aspiration ammonia and his abnormal urinalysis, started antibiotics with Unasyn on 06/20 --> change to augmentin today (he passed DIRECTOR INTEGRATED today - 06/22)
- Given the degree of acute pulmonary edema seen on imaging, maintain net negative fluid balance as tolerated
- Given his Hx of EtOH use, continue thiamine, folate and MSAS
- Maintain SpO2 >94% with supplemental oxygen
- Use BiPAP with sleep; trend blood gas to assess stability of pH + pCO2
- Unable to start phenobarbital given that it will reduce serum concentrations of amiodarone
- Trend LFTs and T. bili
- Maintain SpO2 >90-94%
- Maintain MAP>65
- Continue to monitor serum creatinine creatinine, trending I/O and UOP
- Believe that this is in part due to his rhabdomyolysis; start IVF and continue trending CPK until <500
-If creatinine continues to rise then consult nephro
- Replete electrolytes with K>4, Mg>2
- Maintain euglycemia with goal BG 140-180 with q6hr ISS
- Trend H/H and transfuse if needed to keep Hb>7g/dL; kep plt>20k, unless there is concern for bleeding then keep plt>50k
- prn nebulized bronchodilators - not currently bronchospastic
- Incentive spirometer encouraged 10x per hour for at least 4 hrs a day
- DVT ppx: heparin gtt
Patient is stable for downgrade out of ICU to IMU. Pulmonary service will continue to briefly follow along.
Total time spent today was 37 minutes for this encounter. Time includes reviewing laboratory test/imaging results, reviewing pertinent medical records, obtaining and reviewing medical history, performing an appropriate exam, ordering medications,
tests and procedures. Time also includes documentation of this encounter, coordinating patient care and communicating with other healthcare professionals. Total time does not include separately billed tests performed on this date of service.
Data:
CXR 06/21/2024: Cardiomegaly with borderline pulmonary edema.
CXR 06/22/2024: Nasogastric tube extending to stomach. Interval development of mild atelectasis in the medial left lung base. Persistent mild pulmonary edema.
TTE 06/20/2024:
Normal left ventricular chamber size. Moderately reduced left ventricular
systolic function. Left ventricular ejection fraction is 30% by Naqvi's
Method of Disc. Global hypokinesis. Mild concentric left ventricular
hypertrophy.
Right ventricle is likely dilated.. Mildly reduce RV function.
Brain MRI 06/21/2024:
No acute intracranial abnormality noted.
Sequelae of mild small vessel ischemic disease.
Subjective Dataa
Subjective Data
Date of Service:
Date of Service: June 22, 2024
Chief Complaint: Pharmacy Affairs Assistant Follow Up
Subjective:
Patient was seen and evaluate this morning. He is much more interactive today. Denying shortness of breath, cough or chest pain. He is answer my questions appropriately. Patient's at bedside. All questions were answered. The patient wore
BiPAP overnight, but ripped off bipap and his NGT this AM. Patient resting in bed in no acute distress. Heart rate 75, BP 110/75 and saturating 100% on 5 L/min. Has a mild cough which sounds productive. He is on amiodarone drip + heparin drip.
No Ativan required overnight with last dose given yesterday afternoon.
Review of Systems
General: Other (Negative unless mentioned above)
Objective Data
Data Reviewed
Vital Signs / I&O / Oxygen:
Vital Signs
Temp Pulse Resp BP Pulse Ox
97.5 F 75 23 100/69 98
06/22/24 07:25 06/22/24 09:03 06/22/24 07:00 06/22/24 09:03 06/22/24 07:00
Intake and Output
06/21/24 06/22/24 06/23/24
06:59 06:59 06:59
Intake Total 997.4 / 1024.1 1142.8 / 1170.5 83.1 / 83.1
Output Total 1297 / 1327 185 / 185
Balance -299.6 / -302.9 957.8 / 985.5 83.1 / 83.1
SaO2 [CPAP] 97
SaO2 [A/C] 100
SaO2 98
Nasal Cannula flow liters per 4
minute
Physical Exam
General: Respiratory Distress (negative), Comfortable, Chills (negative) and Sweats (negative)
HEENT: Normocephalic and Anicteric
Cardiovascular: S1-S2, Murmur (DONALD heard best at LUSB) and Peripheral Edema (negative)
Respiratory: Wheeze (negative), Crackles (Bibasilar), Rhonchi (negative) and Non-Labored Respirations
GI: Soft, Non Distended, Non Tender and Normal Bowel Sounds
Neurology: Awake, Alert and Tremors (negative)
Skin: Warm, Dry and Jaundice (negative)
Labs/Micro/Reports
Lab Data
06/22/24 03:53
06/22/24 03:53
Laboratory Results
06/22/24
03:53
PT 15.1 H
INR 1.19
APTT 64.4 H
--- NOTE | 2024-06-22 08:37 | W.PN.CARDCBS ---
Today's Communication / Plan
-
Continue IV heparin, as patient was on Xarelto as outpatient.
Transition IV amiodarone to oral amiodarone 200 mg daily
Eventual consideration for cardiac catheterization given ahz-eq-taycipry cardiac arrest and newly diagnosed cardiomyopathy with ejection fraction 30% and global hypokinesis. peak trop 11.
Given mental status and alcohol withdrawal, await further improvement clinically prior to consideration for cardiac catheterization.
Impression / Plan
-
.
Primary Loader Helper Sorting Yard: Dr. Fulton, last seen 09/2023
Impression:
Presentation with witnessed OOH arrest, VF s/p 8 rounds of epi and 7 shocks with ROSC, now on TTMP, intubated
Confusion possible alcohol withdrawal currently with hx alcoholism
Hypotension requiring pressor support
Newly diagnosed cardiomyopathy with global hypokinesis EF 30%
Elevated troponin, peak trop 11.5
PAF on chronic xarelto
Leukocytosis, improving
Lactic acidosis / Hypokalemia, improved
Elevated LFTs, improving
Hypomagnesemia, improved
PAF on chronic xarelto
History of prolonged QTc
HTN
prostate cancer s/p prostatectomy 2017
Former smoker
ETOH use disorder
VIRGILIO 04/20/23: EF 50 to 55%, mild TR, PAP 60 mmHg, no thrombus detected in [place]INDSAY, CV followed
Echo May 2024: EF 30% with global hypokinesis, RV dilatation, mildly reduced right ventricular systolic function, no significant valvular disease. Mild MR and mild TR.
Plan:
Presented with witnessed OOH VF arrest requiring 8 rounds epi and 7 shocks with ROSC. He underwent cooling protocol.
Remains extubated and being evaluated and treated for alcohol withdrawal. MSAS protocol
Continue pulmonary toilet.
Continue supportive therapy.
IV heparin for hx of PaFib and had been on Xarelto as outpt.
Remains on IV amiodarone for brief wide-complex tachycardia. Transition to amiodarone 200 mg daily.
Transitioned to oral aspirin.
Eventual consideration for cardiac catheterization given [id number] cardiac arrest and newly diagnosed cardiomyopathy with ejection fraction 30% and global hypokinesis.Peak trop 11.5.
Given mental status and alcohol withdrawal, await further improvement clinically prior to consideration for cardiac catheterization.
Continue to monitor volume status.
Started on atorvastatin in setting of cardiac arrest. LFTs improving
Discussed with primary service.
Discussed with nursing.
Critical care time 34 minutes.
Progress Note - Loader Hel[employer] Sorting Yard
Subjective
Date of Service: June 22, 2024
Pt seen and examined. No complaints. No chest pain or shortness of breath.
Objective
Labs:
06/22/24 03:53
06/22/24 03:53
Labs
Hgb 11.2 g/dL (13.0-18.0) L 06/22/24 03:53
Hct 32.2 % (39.0-52.0) L 06/22/24 03:53
Plt Count 96 10^3/uL (130-400) L 06/22/24 03:53
PT 15.1 Sec (11.4-14.6) H 06/22/24 03:53
INR 1.19 06/22/24 03:53
APTT 64.4 Sec (23.4-35.0) H 06/22/24 03:53
Sodium 135 mmol/L (135-145) 06/22/24 03:53
Potassium 4.3 mmol/L (3.5-5.1) 06/22/24 03:53
BUN 45 mg/dl (9-20) H 06/22/24 03:53
Creatinine 1.8 mg/dL (0.7-1.3) H 06/22/24 03:53
Glucose 152 mg/dl (70-99) H 06/22/24 03:53
Troponins
06/19/24 06/19/24 06/20/24
18:20 23:52 05:55
Troponin I 0.064 H* 11.500 H* D 8.010 H* D
06/20/24
16:32
Troponin I 4.000 H*
Vital Signs and I&O:
Vital Signs
Temp Pulse Resp BP Pulse Ox
97.5 F 75 23 96/64 98
06/22/24 07:25 06/22/24 07:00 06/22/24 07:00 06/22/24 07:00 06/22/24 07:00
Vital Signs
Temp Pulse Resp BP Pulse Ox
97.5 F 75 23 96/64 98
06/22/24 07:25 06/22/24 07:00 06/22/24 07:00 06/22/24 07:00 06/22/24 07:00
Intake & Output
06/20/24 06/21/24 06/22/24 06/23/24
06:59 06:59 06:59 06:59
Intake Total 1433.1 / 1541.8 997.4 / 1024.1 1142.8 / 1170.5 27.7 / 27.7
Output Total 60 / 60 1297 / 1327 185 / 185
Balance 1373.1 / 1481.8 -299.6 / -302.9 957.8 / 985.5 27.7 / 27.7
Physical Exam
Physical Exam
General: No acute distress, awake.
Neck: Negative JVD
Heart: Regular, Negative S3 positive S1/S2, Negative S4, No murmur
Lungs: CTA b/l, negative wheezes/rales/rhonchi
Abd: Positive BS, NT/ND, neg rebound/rigidity/guarding
Ext: Negative cyanosis/clubbing/edema
Neuro: nonfocal
[2024-06-22] MEDS: LOW STRENGTH ASPIRIN PO (09:02)
[2024-06-22] MEDS: COREG PO (09:03)
[2024-06-22] MEDS: FOLVITE 50.2 MG IV (09:03)
--- NOTE | 2024-06-22 10:44 | W.PN.HOSP.TC ---
Today's Communication/Plan
-
monitor mentation
speech eval
IV hep
ok for imu
IVF
trend cr
Assessment / Plan
Assessment / Plan
A/P: 69y M with PMH significant for A-Fib and alcohol use disorder who presents to ED after [id number] arrest.
Cardiac Arrest
Ventricular Fibrillation
History of Prolonged QT
Lactic Acidosis secondary to the above
Acute respiratory failure with hypoxemia and hypercapnia status post intubation on mechanical ventilation
- Status post intubation on admission and status post extubation 06/20
- IV Amiodarone protocol.
- Targeted temperature management protocol-Dced as awake
- Follow for cognitive recovery
- Classroom Aide and Neurology evaluations for additional recommendations.
- Differential etiology of arrest includes acute ischemia / CAD, arrhythmia due to long QT, etc. based on neurological recovery probably will require catheterization
- CT head -no acute intracranial abnormality. Mild age-related changes.
Toxic Metabolic encephalopathy likely due to ICU delirium versus alcohol withdrawal
Severe alcohol use disorder daily ab
- reports significant EtOH intake. Approximately 3 L of vodka weekly
- No history of withdrawal syndromes, seizures, etc.
- Follow MSAS - any withdrawal symptoms should be controlled with current sedation, cooling regimen, etc.
- May require Precedex for severe agitation.
- MRI negative for acute CVA
Dysphagia likely due to post extubation in mentation
-on soft diet.
Elevated troponin secondary to cardiac arrest status post defibrillation
- No STEMI on initial EKG.
- IV heparin for now.
- Cardiology evaluation as noted above.
- Defer ischemic evaluation to cardiology.
Cardiogenic Pulmonary Edema
Acute HFrEF
- Noted on CXR and CT neck.
- Check Echo-normal left ventricular chamber size. Moderate reduced left ventricular systolic function. EF 30%. Global hypokinesis. Mild concentric LVH. Right ventricle is mildly dilated. Mildly reduced RV function.
- Cardiology eval as noted above. Plan for goal-directed medical therapy once stabilization of blood pressure -started on asa/statin and coreg once can tolerate po intake slowly
Acute kidney injury likely secondary to cardiac arrest leading to ATN and rhabdomyolysis
-Monitor urinary output. Status post IV Lasix
-started on IVF. Monitor UOP.
-If no improvement will require nephrology evaluation.
Hypotension status post pressors
-BP starting to stabilize
Paroxysmal Atrial Fibrillation
- Currently in sinus rhythm with 1st degree AV block.
- Hold Xarelto acutely - on IV heparin for now.
- Monitor on telemetry.
- On IV Amio at present. Add rate-control agents if needed.
Leukocytosis
-started on Unasyn per valve mechanic.
-?aspiration pneumonia
Transaminitis likely secondary to cardiac arrest
-Continue to trend for now.
Hypomagnesemia
-Replete monitor
History of Prostate Cancer
- s/p prostatectomy
- Campos in place.
Hypophosphatemia/Hypokalemia
-replete/monitor
Mild thrombocytopenia
-trend platelets closely
DVT Prophylaxis: On IV Heparin
GI ppx- IV PPI
Code Status: Full
Discussed with patient spouse and DIL at bedside in details on 06/21/24
Discussed with cardiology and valve mechanic
Total Critical Care Time_ 34 minutes. I was immediately available to the patient and staff. I personally examined, reviewed labs, diagnostic images/reports, interpretations, treatment plans, discussed patient care with other providers and family
or caregivers (if patient is unable to make decisions), entered orders as appropriate and documented the medical record.
Anticipated Discharge: > 48 hours
Subjective/Interval History
-
Date of Service: June 22, 2024
remains confused
took out DHT overnight
Objective Data
-
Labs:
Laboratory Results
06/22/24 06/22/24
03:53 11:00
WBC 18.6 H
Hgb 11.2 L
Hct 32.2 L
Plt Count 96 L
PT 15.1 H
INR 1.19
APTT 64.4 H Pending
Sodium 135
Potassium 4.3
Chloride 95 L
Carbon Dioxide 25
BUN 45 H
Creatinine 1.8 H
Glucose 152 H
Calcium 7.9 L
Total Bilirubin 1.4 H
AST 96 H
ALT 77 H
Alkaline Phosphatase 63
Vital Signs:
Vital Signs
Temp Pulse Resp BP Pulse Ox
97.5 F 69 15 110/75 100
06/22/24 07:25 06/22/24 10:00 06/22/24 10:00 06/22/24 10:00 06/22/24 10:00
I&O
06/21/24 06/22/24 06/23/24
06:59 06:59 06:59
Intake Total 997.4 / 1024.1 1142.8 / 1170.5 110.8 / 110.8
Output Total 1297 / 1327 185 / 185
Balance -299.6 / -302.9 957.8 / 985.5 110.8 / 110.8
Physical Exam
-
General: Appears Chronically Ill
HEENT: Normocephalic, Atraumatic and Moist Mucous Membranes
Respiratory: Decreased Breath Sounds
Cardiac: Regular Rhythm and S1/S2
GI: Soft, Nontender, Nondistended and Normal Bowel Sounds
Neuro: Awake and No Motor Deficits (moving all 4 extremities ); Negative Slurred Speech or Facial Droop
Psych: Confused
[2024-06-22 12:02] LABS: Glucose - Point of Care 110 mg/dl (70-99)
[2024-06-22 12:16] LABS: APTT 69.5 Sec (23.4-35.0)
--- NOTE | 2024-06-22 12:17 | PTOTSP ---
ST Follow-Up
Pt currently presents with fairly functional oral pharyngeal parameters safe for ingestion of all solids and liquids. Pt exhibits signs of suspected esophageal dysfunction. Pt is at an increased risk for aspiration given his impulsivity, short term
memory deficits, increased respiratory demands, irregular respiratory rate, acute illness, and persistent eructation after PO ingestion. As a result, pt will be started conservatively on a modified diet.
Recommendations:
- Initiate PO diet of SOFT BITE SIZED SOLIDS and THIN LIQUIDS with meds whole in puree.
- Aspiration and reflux precautions: Fully awake, alert, and upright for all PO intake; upright for at least 60 minutes after PO intake; small bites/sips; slow intake rate; chew food thoroughly; take breaks to breathe.
- PACKING ROOM SUPERVISOR to f/u re: diet tolerance, airway protection, diet upgrade candidacy, and determine if pt needs an instrumental swallow study.
- PACKING ROOM SUPERVISOR to f/u re: cognitive linguistic function and evaluate further if deemed warranted.
--- NOTE | 2024-06-22 12:18 | CM ---
CM following re: discharge planning.
Discussed in Rounds, reviewed pt's chart, met with pt. Per Rounds meeting, pt extubated on 06/20/24, remains extubated, pulling bipap off , on 4LNC, continue supportive care. PT, OT, ST will evaluate to determine a level of care at discharge.
D/C plan: uncertain at this time and will depend on pt's progress.
CM will follow with discharge plan updates as hospitalization progresses.
[2024-06-22] MEDS: TYLENOL ORAL SOLUTION TUBE (13:07)
--- NOTE | 2024-06-22 13:16 | W.PN.NEURO.1 ---
Addendum entered and electronically signed by Marilee Resendez DO 06/22/24 14:56:
Studies reviewed.
I have personally examined the patient. I agree with the HEARING CARE PROFESSIONAL's Note.
My addenda:
Mental status significantly improved today; no neglect or focality on exam; a bit slow to answer at times but was oriented to place, self
MRI brain showed no evidence of stroke/anoxic injury.
EEG showed some bilateral intermittent frontal rhythmic slowing; nothing clearly epileptiform; no seizure activity noted
MRI brain showed:
'No acute intracranial abnormality noted.
Sequelae of mild small vessel ischemic disease.'
Agree with plan as documented below; no further testing is needed at this time from a neurological standpoint. Neurology is signing off.
Critical care time 30 mins
Original Note:
Today's Communication / Plan
-
.
Neuro Assessment/Plan
Assessment
This is a 69-year-old RH male who presented to on 06/19/24 with report of Vfib cardiac arrest. ROSC achieved in 20 about 20 minutes after 8 rounds of Epi/7 shocks/CPR. Patient underwent cooling protocol and was extubated successfully on 06/20/24.
Chronic daily alcohol usage.
-CT Head 06/19/24: No acute intracranial abnormality noted. Mild senescent changes, similar to prior.
-CT Cervical Spine 06/19/24: No acute osseous abnormality. Multilevel degenerative changes. There are findings of likely severe pulmonary edema, less likely infectious process within the bilateral lung apices.
-EEG 06/20/24: Mildly to moderately abnormal EEG for age due to diffuse bihemispheric slowing.
-EEG 06/21/24: Mildly abnormal EEG due to bilateral intermittent frontal rhythmic slowing
I. S/P cardiac arrest, approximately 20 minute downtime. Underwent cooling, successfully extubated, follows commands and is conversant.
II. Ongoing confusion uncertain etiology; TME vs alcohol withdraw. Patient has a left tongue hematoma, unclear if this is related to intubation/collapse/seizure, EEG is negative for seizure. MRI brain negative for stroke and anoxic injury.
III. Afib (Xarelto).
III. Chronic daily alcohol usage.
Plan
-Continue aspirin 81mg daily. Heparin gtt. Resume home Xarelto when cleared by Cardiology.
-Neurological checks per unit guidelines. NIHSS discontinued.
-MSAS protocol. Thiamine/folic acid replacement.
-PT/OT/ST
-Will follow peripherally, please contact our service with any questions/concerns.
Subjective/Objective
Subjective Data
Date of Service: June 22, 2024
No acute events overnight. Patient is slightly less confused today. He denies any headache, dizziness, vision changes, speech/swallow difficulty, numbness, focal weakness, chest pain, palpitations, and shortness of breath on oxygen via nasal cannula.
Objective Data
Vital Signs
Temp Pulse Resp BP Pulse Ox
97.8 F 71 23 110/84 100
06/22/24 12:04 06/22/24 13:00 06/22/24 13:00 06/22/24 13:00 06/22/24 13:00
Lab Results
06/22/24 03:53
06/22/24 03:53
PT 15.1 Sec (11.4-14.6) H 06/22/24 03:53
INR 1.19 06/22/24 03:53
APTT 69.5 Sec (23.4-35.0) H 06/22/24 11:49
Sodium 135 mmol/L (135-145) 06/22/24 03:53
Potassium 4.3 mmol/L (3.5-5.1) 06/22/24 03:53
BUN 45 mg/dl (9-20) H 06/22/24 03:53
Glucose 152 mg/dl (70-99) H 06/22/24 03:53
Calcium 7.9 mg/dl (8.4-10.2) L 06/22/24 03:53
Phosphorus 6.0 mg/dl (2.5-4.5) H 06/22/24 03:53
Rut-P-Ihksvjxcefd Pept 97931 pg/ml 06/21/24 06:16
LDL Cholesterol, Calc 50 mg/dl 06/20/24 05:55
Patient Allergies
No Known Allergies Allergy (Unverified 04/19/23 15:30)
Review of Systems
-
History Source: Patient
EENT: Negative Blurry Vision, Decreased Vision or Swallowing Difficulty
Respiratory: Negative Cough or Trouble Breathing
Cardiac: Negative Chest Pain or Palpitations
Abdomen/GI: Negative Nausea
Neuro: Negative Dizzy, Headache, Weakness, Numbness, Ataxia, Tremors or Speech Problem
Physical Exam
-
General: No Apparent Distress
Eyes: No Ptosis and PERRLA
HEENT: Normocephalic and Atraumatic
Neck: Full Range of Motion
GI: Non-distended
Extremities: No Clubbing, No Cyanosis and No Edema
Psych: Confused
Extended Neurological Exam
Mood & Affect: Mood Unremarkable and Affect Unremarkable
Attention Span & Concentration: Awake, Alert and Interactive
Memory: Reduced (Oriented to self and place, and somewhat situation, not time)
Tremor: Hand Tremor Absent and Head Tremor Absent
Involuntary Movement: None
Speech: Quality Unremarkable, Quantity Unremarkable and Rate of Production Unremarkable
Cranial Nerve II: Left Eye: Pupillary Reactivity Unremarkable, Pupillary Size Unremarkable and Visual Schaeffer Intact
Cranial Nerve II: Right Eye: Pupillary Reactivity Unremarkable, Pupillary Size Unremarkable and Visual Schaeffer Intact
Cranial Nerves III, IV, : Extraocular Movement: Extraocular Movement Full in all Directions
Cranial Nerve V: Facial Sensation: Intact to Light Touch
Cranial Nerve VII: Facial Symmetry: Normal Facial Symmetry
Cranial Nerve VIII: Hearing: Unremarkable Hearing to Normal Conversational Volume
Cranial Nerves IX, X: Palate Movement: Palate Elevation Symmetric
Cranial Nerve XI: Shoulder Shrug: Unremarkable
Cranial Nerve XII: Tongue Protusion: Midline
Muscle Strength, Overall: Full Throughout
Muscle Bulk & Tone: Bulk Unremarkable and Tone Unremarkable
Pronator Drift: No Drift in Upper Extremities and No Drift in Lower Extremities
Deep Tendon Reflexes: Unremarkable Throughout
Touch Sensation: Double Simultaneous Stimulation Unremarkable
Coordination: Jyrrnf-krmi-dtgnwc Testing Unremarkable
Babinski Sign: Absent Bilaterally
Gait & Station: Unable to Assess
Data Reviewed
-
CT Head: Report Reviewed and Image Reviewed
MRI Head: Report Reviewed and Image Reviewed
EEG: Report Reviewed
Labs: Report Reviewed
Reviewed with: Physician and Patient
[2024-06-22] MEDS: NSS 1000 IV (13:20)
[2024-06-22] MEDS: PACERONE 200 MG PO (13:20)
--- NOTE | 2024-06-22 14:00 | PTCARENOTE ---
Patient mental status gradually improving. Central line removed by VAT. Has three peripheral lines. PO Amio given, Amio gtt d/c'd.
--- NOTE | 2024-06-22 17:16 | W.PN.UPDATE ---
Update Note
Progress Note Update
EKG with prolonging QTc. Will hold amiodarone for now
[2024-06-22 17:45] LABS: Glucose - Point of Care 127 mg/dl (70-99)
[2024-06-22] MEDS: LIPITOR 40 MG PO (17:49)
[2024-06-22 19:40] LABS: APTT 62.4 Sec (23.4-35.0)
--- NOTE | 2024-06-22 20:24 | PTCARENOTE ---
Assumed care of pt. approx 1900.
Eating dinner, Family bedside offers no complaints, all questions answered.
Remains on Heparin gtt, still subtherapeutic, trending PTT q6.
MSAS 2, due to slight confusion, of note appears to be baseline per family.
GCS 14, pupils =/R 3mm brisk response, normocephalic/atraumatic, equal strength/dexterity/sensation throughout.
NSR prolonged qtc noted, normotensive, normothermic.
Tolerating advanced diet, Maint. Fluids d/c due to pt. increasing oral intake.
[2024-06-22] MEDS: COREG 6.25 MG PO (21:14)
[2024-06-22] MEDS: AUGMENTIN 875 MG/125 MG 1 TABLET PO (21:14)
[2024-06-22] MEDS: ATIVAN 2 MG IV (23:20)
[2024-06-23] VITALS (14 sets, daily range): BP systolic 98–140; BP diastolic 70–93; PULSE 66; O2SAT 100; BMI 34.2
--- NOTE | 2024-06-23 00:08 | PTCARENOTE ---
Pt. MSAS increasing to 10, PRN Ativan given per order set.
Provider notified via TT about increased MSAS, removing lines, attempting to get out of bed w/o assistance.
Orders for soft wrist RX placed, and applied to patient.
[2024-06-23] MEDS: ATIVAN 2 MG IV (00:45)
[2024-06-23 01:05] LABS: APTT 87.2 Sec (23.4-35.0)
[2024-06-23] MEDS: ATIVAN 4 MG IV (02:14)
--- NOTE | 2024-06-23 04:09 | PTCARENOTE ---
No change in pt. assessment, MSAS decreasing w/ PRN ativan.
Remains in RX. Will attempt to trial off as appropriate.
[2024-06-23 04:40] LABS: Venous Blood Gas B.E. 1.8 mmol/L (-4 to +4); Venous Blood Gas HCO3 27.2 mmol/L (22-27); Venous Blood Gas pCO2 45 mmHg (35-48); Venous Blood Gas pH 7.39 (7.32-7.43); Venous Blood Gas pO2 143 mmHg (30-50)
[2024-06-23 04:59] LABS: Hematocrit 29.5 % (39.0-52.0); Hemoglobin 10.4 g/dL (13.0-18.0); Mean Corp Hgb Conc. 35.3 g/dL (33.0-37.0); Mean Corpuscular Hgb 35.3 pg (27.0-31.0); Mean Platelet Volume 12.5 fL (7.4-10.4); Platelet Count 98 10^3/uL (130-400); Red Blood Cell Count 2.95 10^6/uL (4.70-6.10); Red Cell Dist. Width 12.7 % (11.5-14.5); White Blood Cell Count 12.3 10^3/uL (4.8-10.8)
[2024-06-23 05:22] LABS: Blood Urea Nitrogen 47 mg/dl (9-20); Calcium 8.4 mg/dl (8.4-10.2); Carbon Dioxide 28 mmol/L (22-30); Chloride 99 mmol/L (98-107); Creatine Phosphokinase 536 U/L (55-170); Estimated Creatinine Clearance 51 ml/min; Glucose 101 mg/dl (70-99); Magnesium 1.9 mg/dl (1.6-2.3); Phosphorus 3.9 mg/dl (2.5-4.5); Potassium 3.9 mmol/L (3.5-5.1); Sodium 137 mmol/L (135-145)
[2024-06-23 08:06] LABS: Glucose - Point of Care 96 mg/dl (70-99)
--- NOTE | 2024-06-23 08:28 | W.PN.PUL3 ---
Today's Communication / Plan
-
MSAS with thiamine/folate
Unable to do phenobarbital as this will reduce the serum concentrations of amiodarone
Eventual left heart catheterization as per cardiology - plan to do this upcoming Wednesday (06/26)
Trend VBG, can hold off on BiPAP tonight to see if pH and pCO2 are stable without
Trend serum creatinine + UOP, I/O
Start Saphris HS due to nocturnal agitation (? vs delirium)
Pulmonary service will continue to briefly follow along
Assessment
-
Assessment: 69-year-old male former tobacco smoker with a past medical history of A-fib on Xarelto who presents with zlc-kg-lbangjjx cardiac arrest. He was at an [employer] when he collapsed, bystander CPR initiated and EMS arrived giving
a total of 7 shocks, 8 mg of epi and 450 mg of amiodarone. Patient intubated in the field, and brought to the ER where he was found to be in ROSC. He reportedly was in V-fib rhythm. ROSC obtained approximately 20 minutes after collapsing.
Patient was unresponsive in the ER not following commands or awakening. Therapeutic hypothermia was started and he was transferred to the ICU for further care with model artists' services consulted for additional recommendations/management.
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
Impression:
#Muu-yg-nvctdkbo cardiac arrest (reportedly V-fib arrest) s/p ROSC after multiple shocks, epinephrine + amiodarone
#Acute respiratory failure with hypoxia + hypercapnia requiring mechanical ventilation --> intubated 06/19/2024, extubated 06/20/2024 now on nasal cannula
#Acute pulmonary edema, likely cardiogenic due to acute HFrEF exacerbation
#RV dilation with mildly reduced RV systolic function
#Alcohol use disorder
#Leukocytosis
#Hypokalemia - resolved
#Lactic acidosis - resolved
#Hypophosphatemia - resolved
#Transaminitis with hyperbilirubinemia
#Rhabdomyolysis (mild)
#TERA - improving
#Elevated troponin due to cardiac arrest (peaked at 11.5 on 06/19/2024)
#Abnormal urinalysis suspicious for UTI
#Hyperglycemia - resolved
Plan:
- On 06/20/2024, patient woke up after sedation was weaned off and he was extubated to BiPAP and has since been following commands
- Therapeutic hypothermia stopped
- Therapeutic hypothermia equipment removed on 06/22
- Removed core temperature-sensing probe
- Neurology consulted and recs appreciated; repeat EEG done 06/21/2024 shows mild, frontal cortical slowing; previous EEG showed no seizures
- Brain MRI done on 06/21/2024 shows no acute intracranial abnormality
- Echo performed on 06/20/2024 --> shows reduced LVEF at 30% with global hypokinesis, RV dilation with mildly reduced RV function and mild pulmonary hypertension
- Cardiology consulted to defer ischemic evaluation to them --> he will eventually need a left heart catheterization and possibly an ICD versus LifeVest --> plan for cath this upcoming Wednesday (06/26)
- Defer GDMT to cardiology
- Resumed BB on 06/21/2024 --> since he initially could not swallow (failed SUBSTATION DESIGNER on 06/21), I started coreg instead of toprol-XL
- Of note, he has since passed SUBSTATION DESIGNER on 06/22
- continue amio
- heparin gtt
- Given his cardiac arrest with high likelihood for aspiration ammonia and his abnormal urinalysis, started antibiotics with Unasyn on 06/20 --> change to augmentin on 06/22
- Given the degree of acute pulmonary edema seen on imaging, maintain net negative fluid balance as tolerated
- Given his Hx of EtOH use, continue thiamine, folate and MSAS
- Maintain SpO2 >94% with supplemental oxygen
- Use BiPAP prn as he did not use BiPAP last night and his blood gas this AM was adequate; trend blood gas to assess stability of pH + pCO2, if VBG tomorrow AM looks good then he does not need BiPAP aymore
- Unable to start phenobarbital given that it will reduce serum concentrations of amiodarone
- Trend LFTs and T. bili
- Maintain SpO2 >90-94%
- Maintain MAP>65
- Continue to monitor serum creatinine creatinine, trending I/O and UOP
- Believe that this is in part due to his rhabdomyolysis; continue trending CPK until <500
- If creatinine continues to rise then consult nephro
-He continues to be agitated at night, pulling out IVs. Ideally would start Seroquel but given his prolonged QTc (540ms on 06/23/2024), we will start Saphris HS instead
- Replete electrolytes with K>4, Mg>2
- Maintain euglycemia with goal BG 140-180 with q6hr ISS
- Trend H/H and transfuse if needed to keep Hb>7g/dL; kep plt>20k, unless there is concern for bleeding then keep plt>50k
- prn nebulized bronchodilators - not currently bronchospastic
- Incentive spirometer encouraged 10x per hour for at least 4 hrs a day
- DVT ppx: heparin gtt
Total time spent today was 39 minutes for this encounter. Time includes reviewing laboratory test/imaging results, reviewing pertinent medical records, obtaining and reviewing medical history, performing an appropriate exam, ordering medications,
tests and procedures. Time also includes documentation of this encounter, coordinating patient care and communicating with other healthcare professionals. Total time does not include separately billed tests performed on this date of service.
Data:
CXR 06/21/2024: Cardiomegaly with borderline pulmonary edema.
CXR 06/22/2024: Nasogastric tube extending to stomach. Interval development of mild atelectasis in the medial left lung base. Persistent mild pulmonary edema.
TTE 06/20/2024:
Normal left ventricular chamber size. Moderately reduced left ventricular
systolic function. Left ventricular ejection fraction is 30% by Naqvi's
Method of Disc. Global hypokinesis. Mild concentric left ventricular
hypertrophy.
Right ventricle is likely dilated.. Mildly reduce RV function.
Brain MRI 06/21/2024:
No acute intracranial abnormality noted.
Sequelae of mild small vessel ischemic disease.
Subjective Data
-
Date of Service:
Date of Service: June 23, 2024
Chief Complaint: Pulmonary Follow Up
Subjective:
Patient was seen and evaluated today at bedside. Agitated overnight and pulled out his IV. He says that he is aware that he did this but he just did not want there anymore. currently at bedside and all questions were answered. Of note he
did not wear his BiPAP overnight. Blood gas this morning shows adequate ventilation with pH 7.39, pCO2 45. Current heart rate 65, saturating 98% on 1 L/min and BP 115/80. He currently denies shortness of breath, VORA, chest pain, abdominal pain,
fevers or chills.
Review of Systems
General: Other (Negative unless mentioned above)
Objective Data
Data Reviewed
Vital Signs / I&O / Oxygen:
Vital Signs
Temp Pulse Resp BP Pulse Ox
97.7 F 80 14 122/89 93
06/23/24 08:30 06/23/24 08:31 06/23/24 06:00 06/23/24 08:31 06/23/24 06:00
Intake and Output
06/22/24 06/23/24 06/24/24
06:59 06:59 06:59
Intake Total 1142.8 / 1170.5 1156.9 / 1156.9
Output Total 185 / 185 1050 / 1050
Balance 957.8 / 985.5 106.9 / 106.9
SaO2 [CPAP] 97
SaO2 [A/C] 100
SaO2 93
Nasal Cannula flow liters per 2
minute
Physical Exam
General: Respiratory Distress (negative), Comfortable, Chills (negative) and Sweats (negative)
HEENT: Normocephalic and Anicteric
Cardiovascular: S1-S2 and Peripheral Edema (negative)
Respiratory: Wheeze (negative), Crackles (Bibasilar), Rhonchi (negative) and Non-Labored Respirations
GI: Soft, Non Distended, Non Tender and Normal Bowel Sounds
Neurology: Awake, Alert and Tremors (negative)
Skin: Warm, Dry, Cyanosis (negative) and Jaundice (negative)
Labs/Micro/Reports
Lab Data
06/23/24 04:31
06/23/24 04:31
Laboratory Results
06/22/24 06/22/24 06/23/24
11:49 19:17 00:37
APTT 69.5 H 62.4 H 87.2 H
06/23/24
06:39
APTT 69.0 H
[2024-06-23] MEDS: FOLVITE 1 MG PO (08:30)
[2024-06-23] MEDS: AUGMENTIN 875 MG/125 MG 1 TABLET PO ×2 (08:30→20:10)
[2024-06-23] MEDS: COREG 6.25 MG PO ×2 (08:31→20:10)
[2024-06-23] MEDS: LOW STRENGTH ASPIRIN 81 MG PO (08:31)
[2024-06-23] MEDS: NOVOLOG FLEXPEN-MODERATE RESISTANCE SC ×2 (08:31→16:47)
[2024-06-23] MEDS: VITAMIN B1 100 MG PO ×2 (08:31→20:09)
[2024-06-23] MEDS: PROTONIX 40 MG PO (08:31)
[2024-06-23 11:15] LABS: Glucose - Point of Care 154 mg/dl (70-99)
[2024-06-23] MEDS: NOVOLOG FLEXPEN-MODERATE RESISTANCE 1 UNITS SC (11:25)
--- NOTE | 2024-06-23 11:37 | W.PN.CARDCBS ---
Today's Communication / Plan
-
Continue IV heparin, aspirin, Coreg, and atorvastatin.
Repeat EKG today. Amiodarone has been on hold because of prolonged QT interval.
MRI of the brain unremarkable, and mental status seems to be slowly improving.
Tentative plan will be for right left heart cath on Wednesday.
Creatinine at 1.5. Weight is creeping up. Likely will need Lasix over the next 24 hours.
Impression / Plan
-
.
Primary Venereal Disease Control Head: Dr. Fulton, last seen 09/2023
Impression:
Presentation with witnessed OOH arrest, VF s/p 8 rounds of epi and 7 shocks with ROSC, now on TTMP, intubated
Confusion possible alcohol withdrawal currently with hx alcoholism
Hypotension requiring pressor support
Newly diagnosed cardiomyopathy with global hypokinesis EF 30%
Elevated troponin, peak trop 11.5
PAF on chronic xarelto
Leukocytosis, improving
Lactic acidosis / Hypokalemia, improved
Elevated LFTs, improving
Hypomagnesemia, improved
PAF on chronic xarelto
History of prolonged QTc
HTN
prostate cancer s/p prostatectomy 2017
Former smoker
ETOH use disorder
VIRGILIO 04/20/23: EF 50 to 55%, mild TR, PAP 60 mmHg, no thrombus detected in [place], CV followed
Echo May 2024: EF 30% with global hypokinesis, RV dilatation, mildly reduced right ventricular systolic function, no significant valvular disease. Mild MR and mild TR.
Plan:
Presented with witnessed OOH VF arrest requiring 8 rounds epi and 7 shocks with ROSC. He underwent cooling protocol.
Remains extubated and awake. MRI of the brain unremarkable.
Continue pulmonary toilet.
Continue supportive therapy.
IV heparin for hx of PaFib and had been on Xarelto as outpt. Would continue IV heparin for now.
QT interval was prolonged yesterday and amiodarone is on hold. Repeat EKG today.
Transitioned to oral aspirin.
Eventual consideration for cardiac catheterization given [id number] cardiac arrest and newly diagnosed cardiomyopathy with ejection fraction 30% and global hypokinesis.Peak trop 11.5.
Given mental status and alcohol withdrawal, await further improvement clinically prior to consideration for cardiac catheterization.
Continue carvedilol. Blood pressure remains somewhat labile. Eventually add CLAUDIA/ARB over next 24 hours.
Weight is slowly increasing. Likely will need Lasix over the next 24 hours.
Started on atorvastatin in setting of cardiac arrest. LFTs improving
Progress Note - Venereal Disease Control Head
Subjective
Date of Service: June 23, 2024
Extubated and awake. Mildly agitated. Denies chest pains.
Objective
Labs:
06/23/24 04:31
06/23/24 04:31
Labs
Hgb 10.4 g/dL (13.0-18.0) L 06/23/24 04:31
Hct 29.5 % (39.0-52.0) L 06/23/24 04:31
Plt Count 98 10^3/uL (130-400) L 06/23/24 04:31
PT 15.1 Sec (11.4-14.6) H 06/22/24 03:53
INR 1.19 06/22/24 03:53
APTT 69.0 Sec (23.4-35.0) H 06/23/24 06:39
Sodium 137 mmol/L (135-145) 06/23/24 04:31
Potassium 3.9 mmol/L (3.5-5.1) 06/23/24 04:31
BUN 47 mg/dl (9-20) H 06/23/24 04:31
Creatinine 1.5 mg/dL (0.7-1.3) H 06/23/24 04:31
Glucose 101 mg/dl (70-99) H 06/23/24 04:31
Troponins
06/20/24
16:32
Troponin I 4.000 H*
Vital Signs and I&O:
Vital Signs
Temp Pulse Resp BP Pulse Ox
97.7 F 80 14 122/89 93
06/23/24 08:30 06/23/24 08:31 06/23/24 06:00 06/23/24 08:31 06/23/24 06:00
Vital Signs
Temp Pulse Resp BP Pulse Ox
97.7 F 80 14 122/89 93
06/23/24 08:30 06/23/24 08:31 06/23/24 06:00 06/23/24 08:31 06/23/24 06:00
Intake & Output
06/21/24 06/22/24 06/23/24 06/24/24
06:59 06:59 06:59 06:59
Intake Total 997.4 / 1024.1 1142.8 / 1170.5 1156.9 / 1156.9
Output Total 1297 / 1327 185 / 185 1050 / 1050
Balance -299.6 / -302.9 957.8 / 985.5 106.9 / 106.9
Physical Exam
Physical Exam
GEN: No distress, awake
HEENT: supple, anicteric, mmm
LUNGS: CTA, no wheezes/rales
CV: Reg, S1/S2, 1/6 syst LSB, no gallop
ABD: soft, BS+, NT/ND
EXT: +1 edema
NEURO: Gross non-focal
SKIN: No rash
--- NOTE | 2024-06-23 12:46 | W.PN.HOSP.TC ---
Addendum entered and electronically signed by John Wilder MD 06/23/24 15:10:
update spouse at bedside in details
Original Note:
Today's Communication/Plan
-
Encourage po intake
mentation slowly improving
OOB/PT/OT
IV hep
monitor platelet closely
trend cr
hold IVF
Assessment / Plan
Assessment / Plan
A/P: 69y M with PMH significant for A-Fib and alcohol use disorder who presents to ED after agy-sf-ovxjbbtr arrest.
Cardiac Arrest
Ventricular Fibrillation
History of Prolonged QT
Lactic Acidosis secondary to the above
Acute respiratory failure with hypoxemia and hypercapnia status post intubation on mechanical ventilation
- Status post intubation on admission and status post extubation 06/20
- IV Amiodarone protocol and was transitioned to po -but held due to prolonged Qtc.
- Targeted temperature management protocol-Dced as awake
- Follow for cognitive recovery
- Differential etiology of arrest includes acute ischemia / CAD, arrhythmia due to long QT, etc. based on neurological recovery probably will require catheterization
- CT head -no acute intracranial abnormality. Mild age-related changes.
Toxic Metabolic encephalopathy likely due to ICU delirium versus alcohol withdrawal
Severe alcohol use disorder daily ab
- reports significant EtOH intake. Approximately 3 L of vodka weekly
- No history of withdrawal syndromes, seizures, etc.
- Follow MSAS - any withdrawal symptoms should be controlled with current sedation, cooling regimen, etc.
- MRI negative for acute CVA
- EEG negative for active seizures. Neurology signed off
Dysphagia likely due to post extubation in mentation
-on soft diet.
Elevated troponin secondary to cardiac arrest status post defibrillation
- No STEMI on initial EKG.
- IV heparin for now.
- Cardiology evaluation as noted above.
- Defer ischemic evaluation to cardiology. Plan for tentative cath wednesday.
Cardiogenic Pulmonary Edema
Acute HFrEF
- Noted on CXR and CT neck.
- Check Echo-normal left ventricular chamber size. Moderate reduced left ventricular systolic function. EF 30%. Global hypokinesis. Mild concentric LVH. Right ventricle is mildly dilated. Mildly reduced RV function.
- Cardiology eval as noted above. Plan for goal-directed medical therapy once stabilization of blood pressure -started on asa/statin and coreg
Acute kidney injury likely secondary to cardiac arrest leading to ATN and rhabdomyolysis
-Monitor urinary output. Status post IV Lasix
-started on IVF. Monitor UOP.
-Cr slowly improving to 1.5 today. Monitor off IVF. CK downtrended. Encourage po intake.
Hypotension status post pressors
-BP starting to stabilize
Paroxysmal Atrial Fibrillation
- Currently in sinus rhythm with 1st degree AV block.
- Hold Xarelto acutely - on IV heparin for now.
- Monitor on telemetry.
- Po held for Prolonged Qtc Add rate-control agents if needed.
Leukocytosis
-started on Unasyn per stereotyper apprentice.
-?aspiration pneumonia
-switched to po augmentin.
Transaminitis likely secondary to cardiac arrest
-Continue to trend for now.
Hypomagnesemia
-Replete monitor
History of Prostate Cancer
- s/p prostatectomy
- s/p serrano removal. voiding.
Hypophosphatemia/Hypokalemia
-replete/monitor
Mild thrombocytopenia
-trend platelets closely
DVT Prophylaxis: On IV Heparin
GI ppx- IV PPI
Code Status: Full
PT/OT
Anticipated Discharge: > 48 hours
Subjective/Interval History
-
Date of Service: June 23, 2024
awake in restraints
calm
BP stable
Objective Data
-
Labs:
Laboratory Results
06/23/24 06/23/24 06/23/24
00:37 04:31 06:39
WBC 12.3 H
Hgb 10.4 L
Hct 29.5 L
Plt Count 98 L
APTT 87.2 H 69.0 H
Sodium 137
Potassium 3.9
Chloride 99
Carbon Dioxide 28
BUN 47 H
Creatinine 1.5 H
Glucose 101 H
Calcium 8.4
06/23/24
14:00
WBC
Hgb
Hct
Plt Count
APTT Pending
Sodium
Potassium
Chloride
Carbon Dioxide
BUN
Creatinine
Glucose
Calcium
Vital Signs:
Vital Signs
Temp Pulse Resp BP Pulse Ox
97.7 F 80 14 122/89 93
06/23/24 08:30 06/23/24 08:31 06/23/24 06:00 06/23/24 08:31 06/23/24 06:00
I&O
06/22/24 06/23/24 06/24/24
06:59 06:59 06:59
Intake Total 1142.8 / 1170.5 1156.9 / 1156.9
Output Total 185 / 185 1050 / 1050
Balance 957.8 / 985.5 106.9 / 106.9
Physical Exam
-
General: Appears Chronically Ill
HEENT: Normocephalic, Atraumatic, Moist Mucous Membranes and Oxygen
Respiratory: Decreased Breath Sounds
Cardiac: Regular Rhythm and S1/S2
GI: Soft, Nontender, Nondistended and Normal Bowel Sounds
Neuro: Awake and No Motor Deficits (moving all 4 extremities ); Negative Slurred Speech or Facial Droop
Psych: Confused
Data Reviewed
-
Total Time Spent with Patient (in minutes): 54
--- NOTE | 2024-06-23 15:32 | CM ---
CM following re: discharge planning.
Reviewed pt's chart, met with pt and pt's spouse at bedside.
PT evaluations noted - acute rehab vs SNF recommended. Both pt and his spouse are aware, expressed their agreement and [facility] preferred.
A referral to [facility] made.
PM&R consult requested.
For alternative plan, a list of SNFs provided. Following SNFs preferred: [facility] home, [facility], [facility], [facility]. A referral to above SNFs made.
D/C plan: Plan A: [facility]. Plan B: preferred SNF.
CM will follow to assist pt with discharge plan updates as hospitalization progresses
[2024-06-23 15:54] LABS: APTT 56.4 Sec (23.4-35.0)
--- NOTE | 2024-06-23 16:00 | PTCARENOTE ---
Pt OOB to this afternoon. B/L wrist restraints removed. Pt following simple commands. at bedside. Chair alarm placed on bed. Heparin gtt remains on and titrating per protocol to keep gtt in range. Will continue to monitor.
[2024-06-23 16:57] LABS: Glucose - Point of Care 95 mg/dl (70-99)
[2024-06-23] MEDS: LIPITOR 40 MG PO (17:42)
[2024-06-23] MEDS: HEPARIN 25000 UNITS/250 ML IV (18:41)
[2024-06-23] MEDS: SAPHRIS 2.5 MG SL ×2 (20:28→23:03)
[2024-06-23 23:10] LABS: APTT 101.9 Sec (23.4-35.0)
[2024-06-24] VITALS (17 sets, daily range): BP systolic 93–168; BP diastolic 62–97; PULSE 2–57; O2SAT 93–95; BMI 33.6
[2024-06-24 05:39] LABS: Venous Blood Gas B.E. 1.7 mmol/L (-4 to +4); Venous Blood Gas HCO3 28.9 mmol/L (22-27); Venous Blood Gas O2 Sat % 95.4 %; Venous Blood Gas O2 Therapy 1L/min; Venous Blood Gas pCO2 56 mmHg (35-48); Venous Blood Gas pH 7.32 (7.32-7.43); Venous Blood Gas pO2 74 mmHg (30-50)
[2024-06-24 05:45] LABS: Hematocrit 33.1 % (39.0-52.0); Hemoglobin 11.3 g/dL (13.0-18.0); Mean Corp Hgb Conc. 34.1 g/dL (33.0-37.0); Mean Corpuscular Volume 99.7 fL (80.0-94.0); Mean Platelet Volume 11.9 fL (7.4-10.4); Platelet Count 152 10^3/uL (130-400); Red Blood Cell Count 3.32 10^6/uL (4.70-6.10); Red Cell Dist. Width 13.2 % (11.5-14.5); White Blood Cell Count 8.6 10^3/uL (4.8-10.8)
[2024-06-24 05:55] LABS: APTT 103.4 Sec (23.4-35.0)
[2024-06-24 06:45] LABS: ALT (SGPT) 54 U/L (0-50); AST (SGOT) 44 U/L (17-59); Albumin 3.5 g/dl (3.5-5.0); Alkaline Phosphatase 74 U/L (38-126); Carbon Dioxide 27 mmol/L (22-30); Estimated Creatinine Clearance 59 ml/min; Glucose 84 mg/dl (70-99); Total Protein 6.4 g/dl (6.3-8.2); eGFR 59.84
[2024-06-24 06:51] LABS: Blood Urea Nitrogen 38 mg/dl (9-20); Calcium 9.3 mg/dl (8.4-10.2); Chloride 101 mmol/L (98-107); Direct Bilirubin 0.6 mg/dl (0.0-0.4); Phosphorus 4.1 mg/dl (2.5-4.5); Potassium 3.7 mmol/L (3.5-5.1); Sodium 141 mmol/L (135-145); Total Bilirubin 1.6 mg/dl (0.2-1.3)
[2024-06-24 07:06] LABS: Creatine Phosphokinase 172 U/L (55-170)
--- NOTE | 2024-06-24 08:40 | W.PN.PUL3 ---
Today's Communication / Plan
-
Blood gas this morning shows slight worsening of hypercapnia --> resume BiPAP 08/03 as he is amenable to using this to help avoid worsening hypercapnia
He understands the risks of nocturnal PAP noncompliance
MSAS with thiamine/folate
Unable to do phenobarbital as this will reduce the serum concentrations of amiodarone
Eventual left heart catheterization as per cardiology - plan to do this upcoming Wednesday (06/26)
Trend serum creatinine + UOP, I/O
Continue Saphris HS due to nocturnal agitation (? vs delirium)
Pulmonary service will continue to briefly follow along
Assessment
-
Assessment: 69-year-old male former tobacco smoker with a past medical history of A-fib on Xarelto who presents with hji-lq-rddqubco cardiac arrest. He was at an [employer] shop when he collapsed, bystander CPR initiated and EMS arrived giving
a total of 7 shocks, 8 mg of epi and 450 mg of amiodarone. Patient intubated in the field, and brought to the ER where he was found to be in ROSC. He reportedly was in V-fib rhythm. ROSC obtained approximately 20 minutes after collapsing.
Patient was unresponsive in the ER not following commands or awakening. Therapeutic hypothermia was started and he was transferred to the ICU for further care with groundwater consultant services consulted for additional recommendations/management.
Chronic conditions NEWSPAPER PEDDLER: A-fib, hypertension, long QT syndrome, history of prostate cancer, obesity, former tobacco smoker, alcohol use disorder
Impression:
#Hmr-pb-cvrofgee cardiac arrest (reportedly V-fib arrest) s/p ROSC after multiple shocks, epinephrine + amiodarone
#Acute respiratory failure with hypoxia + hypercapnia requiring mechanical ventilation --> intubated 06/19/2024, extubated 06/20/2024 now on nasal cannula
#Acute pulmonary edema, likely cardiogenic due to acute HFrEF exacerbation
#RV dilation with mildly reduced RV systolic function
#Alcohol use disorder
#Leukocytosis - now resolved
#Hypokalemia - resolved
#Lactic acidosis - resolved
#Hypophosphatemia - resolved
#Transaminitis with hyperbilirubinemia
#Rhabdomyolysis (mild) - resolving
#TERA - improving
#Elevated troponin due to cardiac arrest (peaked at 11.5 on 06/19/2024)
#Abnormal urinalysis suspicious for UTI
#Hyperglycemia - resolved
Plan:
- On 06/20/2024, patient woke up after sedation was weaned off and he was extubated to BiPAP and has since been following commands
- Therapeutic hypothermia stopped
- Therapeutic hypothermia equipment removed on 06/22
- Removed core temperature-sensing probe
- Neurology consulted and recs appreciated; repeat EEG done 06/21/2024 shows mild, frontal cortical slowing; previous EEG showed no seizures
- Brain MRI done on 06/21/2024 shows no acute intracranial abnormality
- Echo performed on 06/20/2024 --> shows reduced LVEF at 30% with global hypokinesis, RV dilation with mildly reduced RV function and mild pulmonary hypertension
- Cardiology consulted to defer ischemic evaluation to them --> he will need a left heart catheterization and possibly an ICD versus LifeVest before discharge--> plan for cath this upcoming Wednesday (06/26)
- Defer GDMT to cardiology
- Resumed BB on 06/21/2024 --> since he initially could not swallow (failed LOAN REVIEW ANALYST on 06/21), I started coreg instead of toprol-XL
- Of note, he has since passed LOAN REVIEW ANALYST on 06/22
- continue amio
- heparin gtt
- Given his cardiac arrest with high likelihood for aspiration ammonia and his abnormal urinalysis, started antibiotics with Unasyn on 06/20 --> change to augmentin on 06/22
- Given the degree of acute pulmonary edema seen on imaging, maintain net negative fluid balance as tolerated
- Given his Hx of EtOH use, continue thiamine, folate and MSAS
- Maintain SpO2 >94% with supplemental oxygen
- Considering that hypercapnia is worsening as of this morning's blood gas, resume BiPAP with sleep. Trend blood gas to assess stability of pH + pCO2
- Unable to start phenobarbital given that it will reduce serum concentrations of amiodarone
- Trend LFTs and T. bili
- Maintain SpO2 >90-94%
- Maintain MAP>65
- Continue to monitor serum creatinine creatinine, trending I/O and UOP
- Believe that this is in part due to his rhabdomyolysis; no longer need to continue trending CPK as it is <200
- If creatinine continues to rise then consult nephro
- He was agitated at night, pulling out IVs --> Saphris HS started and he seems to be doing well with this
- Trend Qtc
- Replete electrolytes with K>4, Mg>2
- Maintain euglycemia with goal BG 140-180 with q6hr ISS
- Trend H/H and transfuse if needed to keep Hb>7g/dL; kep plt>20k, unless there is concern for bleeding then keep plt>50k
- prn nebulized bronchodilators - not currently bronchospastic
- Incentive spirometer encouraged 10x per hour for at least 4 hrs a day
- DVT ppx: heparin gtt
Pulmonary service will continue to briefly follow along
Total time spent today was 36 minutes for this encounter. Time includes reviewing laboratory test/imaging results, reviewing pertinent medical records, obtaining and reviewing medical history, performing an appropriate exam, ordering medications,
tests and procedures. Time also includes documentation of this encounter, coordinating patient care and communicating with other healthcare professionals. Total time does not include separately billed tests performed on this date of service.
Data:
CXR 06/21/2024: Cardiomegaly with borderline pulmonary edema.
CXR 06/22/2024: Nasogastric tube extending to stomach. Interval development of mild atelectasis in the medial left lung base. Persistent mild pulmonary edema.
TTE 06/20/2024:
Normal left ventricular chamber size. Moderately reduced left ventricular
systolic function. Left ventricular ejection fraction is 30% by Naqvi's
Method of Disc. Global hypokinesis. Mild concentric left ventricular
hypertrophy.
Right ventricle is likely dilated.. Mildly reduce RV function.
Brain MRI 06/21/2024:
No acute intracranial abnormality noted.
Sequelae of mild small vessel ischemic disease.
Subjective Data
-
Date of Service:
Date of Service: June 24, 2024
Chief Complaint: Pulmonary Follow Up
Subjective:
Patient seen and evaluated today at bedside. Heart rate 70, BP 93/62 and saturating 98% on 2 L/min nasal cannula. He is much more interactive and alert this morning. In no acute distress. No overnight events reported. Received Saphris overnight
and seemed to be calm afterwards. Unfortunately blood gas this morning shows worsening hypercapnia. He is amenable to using BiPAP with sleep tonight. He is net positive 256 cc over last 24 hours.
Review of Systems
General: Other (Negative unless mentioned above)
Objective Data
Data Reviewed
Vital Signs / I&O / Oxygen:
Vital Signs
Temp Pulse Resp BP Pulse Ox
98.9 F 63 13 147/80 98
06/24/24 08:30 06/24/24 08:57 06/24/24 08:00 06/24/24 08:57 06/24/24 08:00
Intake and Output
06/23/24 06/24/24 06/25/24
06:59 06:59 06:59
Intake Total 1156.9 / 1156.9 1306 / 1306
Output Total 1050 / 1050 1050 / 1050
Balance 106.9 / 106.9 256 / 256
SaO2 [CPAP] 97
SaO2 [A/C] 100
SaO2 98
Nasal Cannula flow liters per 1
minute
Physical Exam
General: Respiratory Distress (negative), Comfortable, Chills (negative) and Sweats (negative)
HEENT: Normocephalic and Anicteric
Cardiovascular: S1-S2 and Peripheral Edema (+1 lower extremity pitting edema)
Respiratory: Wheeze (negative), Crackles (Bilateral), Rhonchi (negative) and Non-Labored Respirations
GI: Soft, Non Distended, Non Tender and Normal Bowel Sounds
Neurology: Awake, Alert and Tremors (negative)
Skin: Warm, Dry, Cyanosis (negative) and Jaundice (negative)
Labs/Micro/Reports
Lab Data
06/24/24 05:21
06/24/24 05:21
Laboratory Results
06/23/24 06/23/24 06/24/24
15:26 22:52 05:21
APTT 56.4 H 101.9 H 103.4 H
--- NOTE | 2024-06-24 08:44 | W.PN.CARDCBS ---
Today's Communication / Plan
-
Initiating lisinopril
IV Lasix today
Impression / Plan
-
.
Primary Pants Presser Automatic: Dr. Fulton, last seen 09/2023
Impression:
Presentation with witnessed OOH arrest, VF s/p 8 rounds of epi and 7 shocks with ROSC, intubated
Confusion possible alcohol withdrawal currently with hx alcoholism
Hypotension requiring pressor support
Newly diagnosed cardiomyopathy with global hypokinesis EF 30%
Elevated troponin, peak trop 11.5
PAF on chronic xarelto
Leukocytosis, improving
Lactic acidosis / Hypokalemia, improved
Elevated LFTs, improving
Hypomagnesemia, improved
PAF on chronic xarelto
History of prolonged QTc
HTN
prostate cancer s/p prostatectomy 2017
Former smoker
ETOH use disorder
VIRGILIO 04/20/23: EF 50 to 55%, mild TR, PAP 60 mmHg, no thrombus detected in [place], CV followed
Echo May 2024: EF 30% with global hypokinesis, RV dilatation, mildly reduced right ventricular systolic function, no significant valvular disease. Mild MR and mild TR.
Plan:
Remains critically ill
Presented with witnessed OOH VF arrest requiring 8 rounds epi and 7 shocks with ROSC. He underwent cooling protocol.
Remains extubated and awake. MRI of the brain unremarkable.
Continue pulmonary toilet.
Continue supportive therapy.
IV heparin for hx of PaFib and had been on Xarelto as outpt. Would continue IV heparin for now.
QT interval was prolonged yesterday and amiodarone is on hold.
Transitioned to oral aspirin.
Eventual consideration for cardiac catheterization given [id number] cardiac arrest and newly diagnosed cardiomyopathy with ejection fraction 30% and global hypokinesis.Peak trop 11.5.
Given mental status and alcohol withdrawal, await further improvement clinically prior to further consideration for cardiac catheterization.
Continue carvedilol. Blood pressure improved. Renal function also improving with creatinine down to 1.3 and estimated GFR of 60
Will add lisinopril 5 mg daily and uptitrate GDMT for HFrEF as blood pressure and renal function tolerates.
CXR 06/22 with mild pulmonary edema, overall weight is up
Will give 40 mg IV Lasix today
Started on atorvastatin in setting of cardiac arrest. LFTs improving
Continue with aspirin, statin, beta-sadia and adding CLAUDIA-I
Critical care time 35 minutes
Progress Note - Pants Presser Automatic
Subjective
Date of Service: June 24, 2024
confused, no CP
no specific complaints
Objective
Labs:
06/24/24 05:21
06/24/24 05:21
Labs
Hgb 11.3 g/dL (13.0-18.0) L 06/24/24 05:21
Hct 33.1 % (39.0-52.0) L 06/24/24 05:21
Plt Count 152 10^3/uL (130-400) D 06/24/24 05:21
PT 15.1 Sec (11.4-14.6) H 06/22/24 03:53
INR 1.19 06/22/24 03:53
APTT 103.4 Sec (23.4-35.0) H 06/24/24 05:21
Sodium 141 mmol/L (135-145) 06/24/24 05:21
Potassium 3.7 mmol/L (3.5-5.1) 06/24/24 05:21
BUN 38 mg/dl (9-20) H 06/24/24 05:21
Creatinine 1.3 mg/dL (0.7-1.3) 06/24/24 05:21
Glucose 84 mg/dl (70-99) 06/24/24 05:21
Vital Signs and I&O:
Vital Signs
Temp Pulse Resp BP Pulse Ox
98.6 F 69 13 147/80 98
06/24/24 00:36 06/24/24 08:00 06/24/24 08:00 06/24/24 08:00 06/24/24 08:00
Vital Signs
Temp Pulse Resp BP Pulse Ox
98.6 F 69 13 147/80 98
06/24/24 00:36 06/24/24 08:00 06/24/24 08:00 06/24/24 08:00 06/24/24 08:00
Intake & Output
06/22/24 06/23/24 06/24/24 06/25/24
06:59 06:59 06:59 06:59
Intake Total 1142.8 / 1170.5 1156.9 / 1156.9 1306 / 1306
Output Total 185 / 185 1050 / 1050 1050 / 1050
Balance 957.8 / 985.5 106.9 / 106.9 256 / 256
Physical Exam
Physical Exam
GEN: No distress, awake
HEENT: supple, anicteric, mmm
LUNGS: CTA, no wheezes/rales
CV: Reg, S1/S2, 1/6 syst LSB, no rubs, no S3 or S4
ABD: soft, BS+, NT/ND
EXT: +1 edema
[2024-06-24] MEDS: VITAMIN B1 100 MG PO ×2 (08:56→21:18)
[2024-06-24] MEDS: LOW STRENGTH ASPIRIN 81 MG PO (08:57)
[2024-06-24] MEDS: PEPCID 20 MG PO (08:57)
[2024-06-24] MEDS: COREG 6.25 MG PO ×2 (08:57→21:18)
[2024-06-24] MEDS: AUGMENTIN 875 MG/125 MG 1 TABLET PO ×2 (08:57→21:18)
[2024-06-24] MEDS: FOLVITE 1 MG PO (08:57)
[2024-06-24] MEDS: NOVOLOG FLEXPEN-MODERATE RESISTANCE SC ×3 (08:58→18:26)
[2024-06-24 09:09] LABS: Glucose - Point of Care 80 mg/dl (70-99)
[2024-06-24] MEDS: ZESTRIL 5 MG PO (11:15)
[2024-06-24] MEDS: LASIX 40 MG IV (11:16)
[2024-06-24] MEDS: HEPARIN 25000 UNITS/250 ML IV ×2 (11:17→23:22)
--- NOTE | 2024-06-24 12:00 | PTCARENOTE ---
Assumed care of patient at 0645. Patient is pleasant, AAOX2-3. Forgetful and needs to be reminded of what occurred days ago.
Mental status significantly improved throughout shift. More interactive with staff, less impulsive. Ambulated with PT and has been primarily sitting in the chair. Still requires 2L NC. SpO2 dropped to 82% on RA while ambulating with PT, patient
asymptomatic.
--- NOTE | 2024-06-24 12:03 | W.PN.HOSP.TC ---
Today's Communication/Plan
-
Continue to trend BMP
Encourage p.o. intake
Continue with IV heparin
Continue with aspirin, statin, beta-sadia and started on CLAUDIA inhibitor
Continue with antibiotics
PT/OT
Assessment / Plan
Assessment / Plan
A/P: 69y M with PMH significant for A-Fib and alcohol use disorder who presents to ED after [id number] arrest.
Cardiac Arrest
Ventricular Fibrillation
History of Prolonged QT
Lactic Acidosis secondary to the above
Acute respiratory failure with hypoxemia and hypercapnia status post intubation on mechanical ventilation
- Status post intubation on admission and status post extubation 06/20
- IV Amiodarone protocol and was transitioned to po -but held due to prolonged Qtc.
- Targeted temperature management protocol-Dced as awake
- Follow for cognitive recovery
- Differential etiology of arrest includes acute ischemia / CAD, arrhythmia due to long QT, etc. based on neurological recovery probably will require catheterization
- CT head -no acute intracranial abnormality. Mild age-related changes.
Toxic Metabolic encephalopathy likely due to ICU delirium versus alcohol withdrawal versus cardiac arrest related hypoperfusion
Severe alcohol use disorder daily ab
- reports significant EtOH intake. Approximately 3 L of vodka weekly
- No history of withdrawal syndromes, seizures, etc.
- Follow MSAS - any withdrawal symptoms should be controlled with current sedation, cooling regimen, etc.
- MRI negative for acute CVA
- EEG negative for active seizures. Neurology signed off
-Unclear how much patient mentation will improve as with cardiac arrest and heavy alcohol usage prior to arrival
Dysphagia likely due to post extubation in mentation
-on soft diet.
Elevated troponin secondary to cardiac arrest status post defibrillation
- No STEMI on initial EKG.
- IV heparin for now.
- Cardiology evaluation as noted above.
- Defer ischemic evaluation to cardiology. Plan for tentative cath wednesday.
Cardiogenic Pulmonary Edema
Acute HFrEF
- Noted on CXR and CT neck.
- Check Echo-normal left ventricular chamber size. Moderate reduced left ventricular systolic function. EF 30%. Global hypokinesis. Mild concentric LVH. Right ventricle is mildly dilated. Mildly reduced RV function.
- Plan for 40mg IV lasix today. Trend Cr.
- Cardiology eval as noted above. Plan for goal-directed medical therapy once stabilization of blood pressure -started on asa/statin and coreg
Acute kidney injury likely secondary to cardiac arrest leading to ATN and rhabdomyolysis
-Monitor urinary output. Status post IV Lasix
-started on IVF. Monitor UOP.
-Cr slowly improving to 1. 3 today. Monitor off IVF. CK downtrended. Encourage po intake.
Hypotension status post pressors
-BP starting to stabilize
Paroxysmal Atrial Fibrillation
- Currently in sinus rhythm with 1st degree AV block.
- Hold Xarelto acutely - on IV heparin for now.
- Monitor on telemetry.
- Po held for Prolonged Qtc Add rate-control agents if needed.
Leukocytosis
-started on Unasyn per staff veterinarian.
-?aspiration pneumonia
-switched to po augmentin. WBC normalized
Transaminitis likely secondary to cardiac arrest
-Continue to trend for now.
Hypomagnesemia
-Replete monitor
History of Prostate Cancer
- s/p prostatectomy
- s/p serrano removal. voiding.
Hypophosphatemia/Hypokalemia
-replete/monitor
Mild thrombocytopenia
-trend platelets closely
DVT Prophylaxis: On IV Heparin
GI ppx- IV PPI
Code Status: Full
PT/OT
Updated spouse at bedside on 06/23/2024
Anticipated Discharge: > 48 hours
Subjective/Interval History
-
Date of Service: June 24, 2024
Remains in restraints
Tolerating diet
Remains confused
Objective Data
-
Labs:
Laboratory Results
06/24/24
05:21
WBC 8.6
Hgb 11.3 L
Hct 33.1 L
Plt Count 152 D
APTT 103.4 H
Sodium 141
Potassium 3.7
Chloride 101
Carbon Dioxide 27
BUN 38 H
Creatinine 1.3
Glucose 84
Calcium 9.3
Total Bilirubin 1.6 H
AST 44
ALT 54 H
Alkaline Phosphatase 74
Vital Signs:
Vital Signs
Temp Pulse Resp BP Pulse Ox
97.6 F 65 16 168/81 99
06/24/24 11:31 06/24/24 11:16 06/24/24 11:00 06/24/24 11:16 06/24/24 11:00
I&O
06/23/24 06/24/24 06/25/24
06:59 06:59 06:59
Intake Total 1156.9 / 1156.9 1306 / 1306
Output Total 1050 / 1050 1050 / 1050
Balance 106.9 / 106.9 256 / 256
Data Reviewed
-
Total Time Spent with Patient (in minutes): 52
[2024-06-24 13:24] LABS: Glucose - Point of Care 120 mg/dl (70-99)
--- NOTE | 2024-06-24 14:46 | PTOTSP ---
Speech Pathology Follow Up
Patient seen for dysphagia treatment this date for possible diet upgrade per RN request. Improved mental status over the past few days. On 1LPM via NC. WBC 8.6, WNL and trending down. Restraints removed. Received upright in chair. Spouse present.
Initiated trials of regular solid (sandwich). Adequate bolus acceptance of all trials. Took small bites of regular solid. Slow, but functional mastication. Mild oral residue observed, cleared with use of thin liquid wash. No overt s/s of aspiration
or penetration observed. Adequate breath/swallow coordination compared to previous note. O2 remained stable t/o. Recommend trial of IDDSI 7.
Recommendations:
1. Regular textures (IDDSI 7), thin liquids
2. Medications as tolerated
3. Aspiration and reflux precautions: Fully awake, alert, and upright for all PO intake; small bites/sips; slow intake rate; chew food thoroughly; take breaks to breathe.
4. HEL[employer] DESK [employer]NS[employer] to f/u re: diet tolerance, airway protection, diet upgrade candidacy, and determine if pt needs an instrumental swallow study.
5. [employer] DESK INTERNS[employer] to f/u re: cognitive linguistic function and evaluate further if deemed warranted.
[2024-06-24] MEDS: LIPITOR 40 MG PO (18:17)
[2024-06-24 18:34] LABS: Glucose - Point of Care 102 mg/dl (70-99)
[2024-06-24] MEDS: SAPHRIS 2.5 MG SL (21:18)
--- NOTE | 2024-06-24 21:37 | PTCARENOTE ---
assist x1 back to from chair to bathroom. pt with dyspnea on exertion, spO2 remains 100% on 2L NC. heparin gtt continues. RT to place pt on bipap overnight. call [facility] within reach.
[2024-06-24 22:05] LABS: Glucose - Point of Care 117 mg/dl (70-99)
--- NOTE | 2024-06-24 23:28 | PTCARENOTE ---
pt refusing to keep bipap mask on overnight, states he cant sleep and that it is 'too much'. placed back on 2L NC, satting 100%.
[2024-06-25] VITALS (12 sets, daily range): BP systolic 97–135; BP diastolic 59–85; BMI 33.8
[2024-06-25 05:39] LABS: Venous Blood Gas HCO3 32.5 mmol/L (22-27); Venous Blood Gas pCO2 49 mmHg (35-48); Venous Blood Gas pH 7.43 (7.32-7.43); Venous Blood Gas pO2 144 mmHg (30-50)
[2024-06-25 05:46] LABS: Hematocrit 32.7 % (39.0-52.0); Hemoglobin 11.4 g/dL (13.0-18.0); Mean Corp Hgb Conc. 34.9 g/dL (33.0-37.0); Mean Corpuscular Hgb 35.4 pg (27.0-31.0); Mean Corpuscular Volume 101.6 fL (80.0-94.0); Mean Platelet Volume 11.5 fL (7.4-10.4); Platelet Count 159 10^3/uL (130-400); Red Blood Cell Count 3.22 10^6/uL (4.70-6.10); Red Cell Dist. Width 13.2 % (11.5-14.5); White Blood Cell Count 8.2 10^3/uL (4.8-10.8)
[2024-06-25 05:56] LABS: APTT 84.6 Sec (23.4-35.0)
[2024-06-25 06:19] LABS: ALT (SGPT) 38 U/L (0-50); AST (SGOT) 29 U/L (17-59); Albumin 3.1 g/dl (3.5-5.0); Alkaline Phosphatase 62 U/L (38-126); Blood Urea Nitrogen 37 mg/dl (9-20); Calcium 9.3 mg/dl (8.4-10.2); Carbon Dioxide 31 mmol/L (22-30); Chloride 100 mmol/L (98-107); Direct Bilirubin 0.4 mg/dl (0.0-0.4); Estimated Creatinine Clearance 69 ml/min; Glucose 99 mg/dl (70-99); Magnesium 1.5 mg/dl (1.6-2.3); Potassium 3.6 mmol/L (3.5-5.1); Sodium 140 mmol/L (135-145); Total Bilirubin 1.5 mg/dl (0.2-1.3); Total Protein 5.6 g/dl (6.3-8.2); eGFR > 60.00
[2024-06-25 09:06] LABS: Glucose - Point of Care 78 mg/dl (70-99)
[2024-06-25] MEDS: NOVOLOG FLEXPEN-MODERATE RESISTANCE SC ×3 (09:06→16:46)
[2024-06-25] MEDS: MAGNESIUM SULFATE 100 IV (09:06)
[2024-06-25] MEDS: PEPCID 20 MG PO (09:13)
[2024-06-25] MEDS: LOW STRENGTH ASPIRIN 81 MG PO (09:13)
[2024-06-25] MEDS: COREG 6.25 MG PO ×2 (09:13→19:25)
[2024-06-25] MEDS: AUGMENTIN 875 MG/125 MG 1 TABLET PO ×2 (09:13→19:25)
[2024-06-25] MEDS: VITAMIN B1 100 MG PO ×2 (09:14→19:25)
[2024-06-25] MEDS: FOLVITE 1 MG PO (09:14)
[2024-06-25] MEDS: ZESTRIL 5 MG PO (09:14)
--- NOTE | 2024-06-25 09:18 | W.PN.PUL3 ---
Today's Communication / Plan
-
Patient intolerant to BiPAP and I will DC this now
Blood gas this morning shows stable compensated hypercapnia
He understands the risks of nocturnal PAP noncompliance including worsening hypercapnia, worsening somnolent mental status and possible need for mechanical ventilation
MSAS with thiamine/folate
Unable to do phenobarbital as this will reduce the serum concentrations of amiodarone
Eventual left heart catheterization as per cardiology - plan to do this tomorrow (06/26)
Trend serum creatinine + UOP, I/O
Continue Saphris HS due to nocturnal agitation (? vs delirium)
Patient being downgraded from IMU to IVU level care. No additional recommendations at this time. Pulmonary service will now sign off. Please reconsult if there are any additional questions/concerns, or if patient's respiratory status deteriorates.
Assessment
-
Assessment: 69-year-old male former tobacco smoker with a past medical history of A-fib on Xarelto who presents with cmx-ng-wkvitvhl cardiac arrest. He was at an [employer] shop when he collapsed, bystander CPR initiated and EMS arrived giving
a total of 7 shocks, 8 mg of epi and 450 mg of amiodarone. Patient intubated in the field, and brought to the ER where he was found to be in ROSC. He reportedly was in V-fib rhythm. ROSC obtained approximately 20 minutes after collapsing.
Patient was unresponsive in the ER not following commands or awakening. Therapeutic hypothermia was started and he was transferred to the ICU for further care with dead mail checker services consulted for additional recommendations/management.
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
Impression:
#Knx-ps-eeumwuhy cardiac arrest (reportedly V-fib arrest) s/p ROSC after multiple shocks, epinephrine + amiodarone
#Acute respiratory failure with hypoxia + hypercapnia requiring mechanical ventilation --> intubated 06/19/2024, extubated 06/20/2024 now on nasal cannula
#Acute pulmonary edema, likely cardiogenic due to acute HFrEF exacerbation
#RV dilation with mildly reduced RV systolic function
#Alcohol use disorder
#Leukocytosis - now resolved
#Hypokalemia - resolved
#Lactic acidosis - resolved
#Hypophosphatemia - resolved
#Transaminitis with hyperbilirubinemia
#Rhabdomyolysis (mild) - resolving
#TERA - improving
#Elevated troponin due to cardiac arrest (peaked at 11.5 on 06/19/2024)
#Abnormal urinalysis suspicious for UTI
#Hyperglycemia - resolved
Plan:
- On 06/20/2024, patient woke up after sedation was weaned off and he was extubated to BiPAP and has since been following commands
- Therapeutic hypothermia stopped
- Therapeutic hypothermia equipment removed on 06/22
- Removed core temperature-sensing probe
- Neurology consulted and recs appreciated; repeat EEG done 06/21/2024 shows mild, frontal cortical slowing; previous EEG showed no seizures
- Brain MRI done on 06/21/2024 shows no acute intracranial abnormality
- Echo performed on 06/20/2024 --> shows reduced LVEF at 30% with global hypokinesis, RV dilation with mildly reduced RV function and mild pulmonary hypertension
- Cardiology consulted to defer ischemic evaluation to them --> he will need a left heart catheterization and possibly an ICD versus LifeVest before discharge--> plan for cath tomorrow (06/26)
- Defer GDMT to cardiology
- Resumed BB on 06/21/2024 --> since he initially could not swallow (failed BUSINESS CENTER MANAGER on 06/21), I started coreg instead of toprol-XL
- Of note, he has since passed BUSINESS CENTER MANAGER on 06/22
- continue amio
- heparin gtt
- Given his cardiac arrest with high likelihood for aspiration ammonia and his abnormal urinalysis, started antibiotics with Unasyn on 06/20 --> change to augmentin on 06/22
- Given the degree of acute pulmonary edema seen on imaging, maintain net negative fluid balance as tolerated
- Given his Hx of EtOH use, continue thiamine, folate and MSAS
- Maintain SpO2 >94% with supplemental oxygen
- Have trialed BiPAP with sleep however he is intolerant and not willing to try again. Blood gas this morning shows stable compensated hypercapnia. DC BiPAP. Patient understands the risks of PAP noncompliance including worsening hypercapnia,
worsening somnolent mental status and possibly need for mechanical ventilation. Can occasionally continue to trend pCO2 + pH with venous blood gas in the morning
- Unable to start phenobarbital given that it will reduce serum concentrations of amiodarone
- Trend T. bili
- Maintain SpO2 >90-94%
- Maintain MAP>65
- Continue to monitor serum creatinine creatinine, trending I/O and UOP
- Believe that this is in part due to his rhabdomyolysis; no longer need to continue trending CPK as it is <200
- If creatinine worsens again then consider nephro consult
- He was agitated at night, pulling out IVs --> Saphris HS started and he seems to be doing well with this
- Trend QTc
- Replete electrolytes with K>4, Mg>2
- Maintain euglycemia with goal BG 140-180 with AC ISS
- Trend H/H and transfuse if needed to keep Hb>7g/dL; kep plt>20k, unless there is concern for bleeding then keep plt>50k
- prn nebulized bronchodilators - not currently bronchospastic
- Incentive spirometer encouraged 10x per hour for at least 4 hrs a day
- DVT ppx: heparin gtt
Patient being downgraded from IMU to IVU level care. No additional recommendations at this time. Pulmonary service will now sign off. Thank you for allowing us to be involved in the care of this patient. Please reconsult if there are any
additional questions/concerns, or if patient's respiratory status deteriorates.
Total time spent today was 38 minutes for this encounter. Time includes reviewing laboratory test/imaging results, reviewing pertinent medical records, obtaining and reviewing medical history, performing an appropriate exam, ordering medications,
tests and procedures. Time also includes documentation of this encounter, coordinating patient care and communicating with other healthcare professionals. Total time does not include separately billed tests performed on this date of service.
Data:
CXR 06/21/2024: Cardiomegaly with borderline pulmonary edema.
CXR 06/22/2024: Nasogastric tube extending to stomach. Interval development of mild atelectasis in the medial left lung base. Persistent mild pulmonary edema.
TTE 06/20/2024:
Normal left ventricular chamber size. Moderately reduced left ventricular
systolic function. Left ventricular ejection fraction is 30% by Naqvi's
Method of Disc. Global hypokinesis. Mild concentric left ventricular
hypertrophy.
Right ventricle is likely dilated.. Mildly reduce RV function.
Brain MRI 06/21/2024:
No acute intracranial abnormality noted.
Sequelae of mild small vessel ischemic disease.
Subjective Data
-
Date of Service:
Date of Service: June 25, 2024
Chief Complaint: Pulmonary Follow Up
Subjective:
Patient was seen and evaluated today at bedside. No acute events reported from overnight. Placed onto BiPAP last night on 12/5 cmH2O bled with 2 L/min, however after about 45 minutes he could not take the mask anymore and it was removed. He says
that he does not want to use the BiPAP anymore. He understands the risks of noncompliance including worsening hypercapnia, worsening somnolence and possibly need for mechanical ventilation. Luckily, blood gas this morning looks compensated with pH
7.43, and pCO2 49. He currently denies VORA, chest pain, SOB, abdominal pain, nausea, fevers or chills.
Review of Systems
General: Other (Negative unless mentioned above)
Objective Data
Data Reviewed
Vital Signs / I&O / Oxygen:
Vital Signs
Temp Pulse Resp BP Pulse Ox
98.5 F 67 16 126/69 99
06/25/24 09:05 06/25/24 10:00 06/24/24 11:00 06/25/24 10:00 06/25/24 08:01
Intake and Output
06/24/24 06/25/24 06/26/24
06:59 06:59 06:59
Intake Total 1306 / 1306 102 / 102
Output Total 1050 / 1050 950 / 950
Balance 256 / 256 -848 / -848
SaO2 [CPAP] 97
SaO2 [A/C] 100
SaO2 99
Nasal Cannula flow liters per 2
minute
Physical Exam
General: Respiratory Distress (negative), Comfortable, Chills (negative) and Sweats (negative)
HEENT: Normocephalic and Anicteric
Cardiovascular: S1-S2 and Peripheral Edema (+1 lower extremity pitting edema)
Respiratory: Wheeze (negative), Crackles (Bilateral), Rhonchi (negative) and Non-Labored Respirations
GI: Soft, Non Distended, Non Tender and Normal Bowel Sounds
Neurology: AO x 3 and Tremors (negative)
Skin: Warm, Dry, Cyanosis (negative) and Jaundice (negative)
Labs/Micro/Reports
Lab Data
06/25/24 05:29
06/25/24 05:29
Laboratory Results
06/25/24
05:29
APTT 84.6 H
--- NOTE | 2024-06-25 11:06 | W.PN.CARDCBS ---
Today's Communication / Plan
-
Clinically improving.
Renal function improving
Consideration for coronary angiography on Wednesday
Impression / Plan
-
.
Primary Associate Director Of Nursing: Dr. Fulton, last seen 09/2023
Impression:
Presentation with witnessed OOH arrest, VF s/p 8 rounds of epi and 7 shocks with ROSC, intubated
Confusion possible alcohol withdrawal currently with hx alcoholism
Hypotension requiring pressor support
Newly diagnosed cardiomyopathy with global hypokinesis EF 30%
Elevated troponin, peak trop 11.5
PAF on chronic xarelto
Leukocytosis, improving
Lactic acidosis / Hypokalemia, improved
Elevated LFTs, improving
Hypomagnesemia, improved
PAF on chronic xarelto
History of prolonged QTc
HTN
prostate cancer s/p prostatectomy 2017
Former smoker
ETOH use disorder
VIRGILIO 04/20/23: EF 50 to 55%, mild TR, PAP 60 mmHg, no thrombus detected in [place], CV followed
Echo May 2024: EF 30% with global hypokinesis, RV dilatation, mildly reduced right ventricular systolic function, no significant valvular disease. Mild MR and mild TR.
Plan:
Presented with witnessed OOH VF arrest requiring 8 rounds epi and 7 shocks with ROSC. He underwent cooling protocol.
Remains extubated and awake. MRI of the brain unremarkable.
Continue pulmonary toilet.
Continue supportive therapy.
IV heparin for hx of PaFib and had been on Xarelto as outpt. Given that we are moving towards ischemic evaluation/coronary angiography would continue IV heparin for now and then consider resuming DOAC after coronary angiography. He is clinically
overall improving, renal function improving he may be ready for right and left heart catheterization on Wednesday
Consideration for eventual ICD for secondary prevention of sudden cardiac
Continue aspirin
Continue carvedilol.
Added lisinopril 5 mg daily on Wednesday, June 24, 2024 and blood pressure remained stable, renal function continues to improve with creatinine down to 1.1
Continue current dose of CLAUDIA inhibitor for now. If he remains stable/continues to improve can move towards up titration of guideline directed medical therapy for heart failure with reduced ejection fraction
Received 40 mg of IV Lasix yesterday for volume overload, not much change in weight but fluid balance is -850 cc. Renal function improving
Started on atorvastatin in setting of cardiac arrest. LFTs improving
Continue with aspirin, statin, beta-sadia and recent addition of CLAUDIA-I
total time 53 min
Progress Note - Associate Director Of Nursing
Subjective
Date of Service: June 25, 2024
He tells me he has had no chest pain shortness of breath or palpitations.
Objective
Labs:
06/25/24 05:29
06/25/24 05:29
Labs
Hgb 11.4 g/dL (13.0-18.0) L 06/25/24 05:29
Hct 32.7 % (39.0-52.0) L 06/25/24 05:29
Plt Count 159 10^3/uL (130-400) 06/25/24 05:29
PT 15.1 Sec (11.4-14.6) H 06/22/24 03:53
INR 1.19 06/22/24 03:53
APTT 84.6 Sec (23.4-35.0) H 06/25/24 05:29
Sodium 140 mmol/L (135-145) 06/25/24 05:29
Potassium 3.6 mmol/L (3.5-5.1) 06/25/24 05:29
BUN 37 mg/dl (9-20) H 06/25/24 05:29
Creatinine 1.1 mg/dL (0.7-1.3) 06/25/24 05:29
Glucose 99 mg/dl (70-99) 06/25/24 05:29
Vital Signs and I&O:
Vital Signs
Temp Pulse Resp BP Pulse Ox
98.5 F 67 16 126/69 99
06/25/24 09:05 06/25/24 10:00 06/24/24 11:00 06/25/24 10:00 06/25/24 08:01
Vital Signs
Temp Pulse Resp BP Pulse Ox
98.5 F 67 16 126/69 99
06/25/24 09:05 06/25/24 10:00 06/24/24 11:00 06/25/24 10:00 06/25/24 08:01
Intake & Output
06/23/24 06/24/24 06/25/24 06/26/24
06:59 06:59 06:59 06:59
Intake Total 1156.9 / 1156.9 1306 / 1306 102 / 102
Output Total 1050 / 1050 1050 / 1050 950 / 950
Balance 106.9 / 106.9 256 / 256 -848 / -848
Physical Exam
Physical Exam
Awake and alert less confused today
Regular rate and rhythm with normal S1 and S2, no S3 no S4 3 1/6 apical holosystolic murmur no rubs. PMI is normally placed
Lungs clear to auscultation bilaterally
Extremities showed no clubbing or cyanosis there is trace pretibial edema bilaterally
Abdomen soft nontender nondistended with normoactive bowel sounds
--- NOTE | 2024-06-25 11:32 | W.PN.HOSP.TC ---
Today's Communication/Plan
-
Continue goal-directed medical therapy with aspirin statin, Coreg and CLAUDIA
Intermittent heparin
PT OT
Trend BMP
Cardiac cath next week
Assessment / Plan
Assessment / Plan
A/P: 69y M with PMH significant for A-Fib and alcohol use disorder who presents to ED after [id number] arrest.
Cardiac Arrest
Ventricular Fibrillation
History of Prolonged QT
Lactic Acidosis secondary to the above
Acute respiratory failure with hypoxemia and hypercapnia status post intubation on mechanical ventilation
- Status post intubation on admission and status post extubation 06/20
- IV Amiodarone protocol and was transitioned to po -but held due to prolonged Qtc.
- Targeted temperature management protocol-Dced as awake
- Follow for cognitive recovery
- Differential etiology of arrest includes acute ischemia / CAD, arrhythmia due to long QT, etc. based on neurological recovery probably will require catheterization
- CT head -no acute intracranial abnormality. Mild age-related changes.
- Plan for tentative cardiac catheterization early next week
Toxic Metabolic encephalopathy likely due to ICU delirium versus alcohol withdrawal versus cardiac arrest related hypoperfusion
Severe alcohol use disorder daily ab
- reports significant EtOH intake. Approximately 3 L of vodka weekly
- No history of withdrawal syndromes, seizures, etc.
- Follow MSAS - any withdrawal symptoms should be controlled with current sedation, cooling regimen, etc.
- MRI negative for acute CVA
- EEG negative for active seizures. Neurology signed off
- Unclear how much patient mentation will improve as with cardiac arrest and heavy alcohol usage prior to arrival
Dysphagia likely due to post extubation in mentation
-on soft diet.
Elevated troponin secondary to cardiac arrest status post defibrillation
- No STEMI on initial EKG.
- IV heparin for now.
- Cardiology evaluation as noted above.
- Defer ischemic evaluation to cardiology. Plan for tentative cath Wednesday
Cardiogenic Pulmonary Edema
Acute HFrEF
- Noted on CXR and CT neck.
- Check Echo-normal left ventricular chamber size. Moderate reduced left ventricular systolic function. EF 30%. Global hypokinesis. Mild concentric LVH. Right ventricle is mildly dilated. Mildly reduced RV function.
- Status post Lasix. Further diuretics held.
- Cardiology eval as noted above. Plan for goal-directed medical therapy once stabilization of blood pressure -started on asa/statin and coreg
Acute kidney injury likely secondary to cardiac arrest leading to ATN and rhabdomyolysis
-Monitor urinary output. Status post IV Lasix
-started on IVF. Monitor UOP.
-Cr slowly improving to 1.1 today. Monitor off IVF. CK downtrended. Encourage po intake.
Hypotension status post pressors
-BP starting to stabilize
Paroxysmal Atrial Fibrillation
- Currently in sinus rhythm with 1st degree AV block.
- Hold Xarelto acutely - on IV heparin for now.
- Monitor on telemetry.
- Po held for Prolonged Qtc Add rate-control agents if needed.
Leukocytosis
-started on Unasyn per bus driver supervisor.
-?aspiration pneumonia
-switched to po augmentin. WBC normalized
Transaminitis likely secondary to cardiac arrest
-Continue to trend for now.
Hypomagnesemia
-Replete monitor
History of Prostate Cancer
- s/p prostatectomy
- s/p serrano removal. voiding.
Hypophosphatemia/Hypokalemia
-replete/monitor
Mild thrombocytopenia
-trend platelets closely
DVT Prophylaxis: On IV Heparin
GI ppx- IV PPI
Code Status: Full
PT/OT -acute rehab.
Anticipated Discharge: > 48 hours
Subjective/Interval History
-
Date of Service: June 25, 2024
Remains confused
tolerating diet and having bm
Objective Data
-
Labs:
Laboratory Results
06/25/24
05:29
WBC 8.2
Hgb 11.4 L
Hct 32.7 L
Plt Count 159
APTT 84.6 H
Sodium 140
Potassium 3.6
Chloride 100
Carbon Dioxide 31 H
BUN 37 H
Creatinine 1.1
Glucose 99
Calcium 9.3
Total Bilirubin 1.5 H
AST 29
ALT 38
Alkaline Phosphatase 62
Vital Signs:
Vital Signs
Temp Pulse Resp BP Pulse Ox
98.5 F 67 16 126/69 99
06/25/24 09:05 06/25/24 10:00 06/24/24 11:00 06/25/24 10:00 06/25/24 08:01
I&O
06/24/24 06/25/24 06/26/24
06:59 06:59 06:59
Intake Total 1306 / 1306 102 / 102
Output Total 1050 / 1050 950 / 950
Balance 256 / 256 -848 / -848
Physical Exam
-
General: Appears Chronically Ill
HEENT: Normocephalic, Atraumatic, Moist Mucous Membranes and Oxygen
Respiratory: Decreased Breath Sounds
Cardiac: Regular Rhythm and S1/S2
GI: Soft, Nontender, Nondistended and Normal Bowel Sounds
Neuro: Awake and No Motor Deficits (moving all 4 extremities ); Negative Slurred Speech or Facial Droop
Psych: Confused
Data Reviewed
-
Total Time Spent with Patient (in minutes): 52
[2024-06-25 12:31] LABS: Glucose - Point of Care 127 mg/dl (70-99)
[2024-06-25] MEDS: HEPARIN 25000 UNITS/250 ML IV (14:36)
--- NOTE | 2024-06-25 16:30 | PTCARENOTE ---
Assumed care of patient at 0645. Assessment completed and documented in shift assessment on worklist.
Patient is pleasant, easily reoriented. Has poor recall and doesn't remember events from the past week. However, has good fci memory and appears to retain information given to him during the course of the shift. Not impulsive, uses call [facility]
appropriately. Continues on Heparin gtt 1700 units/hour through L AC IV, has been therapeutic for the past 48 hours.
Improving clinically. Downgraded to IVU level of care for planned cardiac cath. Report given to CINDY Daniel in IVU.
[2024-06-25] MEDS: LIPITOR 40 MG PO (17:34)
--- NOTE | 2024-06-25 17:45 | PTCARENOTE ---
Received the patient from ICU in wheelchair. The patient is aaox2, forgetful of date. He is NSR with a prolong Qt on the monitor. Vital signs are stable and he is 96% on 2L. Heparin gtt is running at 1700 units/hr. He has no complaints of sob but
does complain of mild discomfort under his left breast. He rates it a 2 out of 10 on scale. I offered him some Tylenol but he refused stating 'I think it's just from all the moving around.' His is at the bedside. Heart failure and CAD packets
given to his . His call [facility] is within reach. A bed alarm is in place and engaged.
--- NOTE | 2024-06-25 20:07 | PTCARENOTE ---
Pt. received at change of shift. Pt. seen and assessed in room with at the bedside. Pt. stating he feels 'okay'. Tele reading NSR, VS WNL. Pt AOx2 to self and place, forgetful of time. Pt. and educated on plan of care by this RN. Both
verbalize understanding of care. This RN placed patient on bed alarm due to being forgetful at times and typically independent at times. Heparin drip running at 17mL/hr next PTT with AM labs. No complaints of pain at this time. Call [facility] within
reach. Continuing to monitor at this time.
[2024-06-25] MEDS: SAPHRIS 2.5 MG SL (22:11)
[2024-06-26] VITALS (17 sets, daily range): BP systolic 85–138; BP diastolic 51–74; PULSE 75; O2SAT 92; BMI 33.9
[2024-06-26] MEDS: HEPARIN 25000 UNITS/250 ML IV ×2 (02:27→19:59)
[2024-06-26 04:39] LABS: APTT 96.9 Sec (23.4-35.0)
[2024-06-26 05:15] LABS: Blood Urea Nitrogen 29 mg/dl (9-20); Carbon Dioxide 34 mmol/L (22-30); Chloride 99 mmol/L (98-107); Estimated Creatinine Clearance 69 ml/min; Glucose 125 mg/dl (70-99); Magnesium 1.8 mg/dl (1.6-2.3); Potassium 3.5 mmol/L (3.5-5.1); Sodium 138 mmol/L (135-145); eGFR > 60.00
--- NOTE | 2024-06-26 08:20 | W.PN.HOSP.TC ---
Today's Communication/Plan
-
see A/P
Assessment / Plan
Assessment / Plan
A/P: 69 yo M with PMH significant for A-Fib and alcohol use disorder who presented to ED after [id number] cardiac arrest.
A/P:
# Cardiac Arrest with cardiogenic shock
# Ventricular Fibrillation
# History of Prolonged QT
# Lactic Acidosis secondary to the above; Lactic Acidosis has resolved
# Acute hypoxic and hypercapnic respiratory failure status post intubation
Status post intubation on admission and status post extubation 06/20
He underwent cooling protocol.
s/p Pressor
IV Amiodarone was transitioned to PO- but held due to prolonged Qtc.
Differential etiology of arrest includes acute ischemia / CAD, arrhythmia due to long QT, etc.
Plan for tentative cardiac catheterization
# Acute Metabolic encephalopathy likely due to ICU delirium versus alcohol withdrawal versus cardiac arrest related hypoperfusion
# Severe alcohol use disorder
reported significant EtOH intake. Approximately 3L of vodka weekly
No history of withdrawal syndromes, seizures, etc.
Follow MSAS
CT head: no acute intracranial abnormality. Mild age-related changes.
MRI negative for acute CVA
EEG negative for active seizures. Neurology signed off
Unclear how much patient's mentation would improve s/p cardiac arrest and heavy alcohol usage prior to arrival
Monitor MS/ cognitive recovery
# Dysphagia likely due to post extubation, resolved
advanced to low cholesterol diet
# Elevated troponin secondary to cardiac arrest status post defibrillation
No STEMI on initial EKG.
IV heparin for now.
Plan for tentative cath Wednesday
# Cardiogenic Pulmonary Edema
# Acute HFrEF
Noted on CXR and CT cervical spine.
Echo: normal left ventricular chamber size. Moderate reduced left ventricular systolic function. EF 30%. Global hypokinesis. Mild concentric LVH. Right ventricle is mildly dilated. Mildly reduced RV function.
Status post Lasix. Further diuretics held.
Added ASA, Coreg, Lisinopril, Lipitor
Cardiology on board.
# Acute kidney injury secondary to cardiac arrest from ATN and rhabdomyolysis, TERA has resolved
S/p IV Lasix
S/p IVF.
Cr improved from 1.8 on admission to 1.1 today
# Paroxysmal Atrial Fibrillation
Currently in sinus rhythm with 1st degree AV block.
Hold Xarelto, on IV heparin for now.
Monitor on telemetry.
IV Amiodarone was transitioned to PO- but held due to prolonged Qtc.
# Leukocytosis
?aspiration pneumonia
s/p Unasyn/Augmentin
WBC normalized
# Transaminitis likely secondary to cardiac arrest, resolved
# Hypomagnesemia
Repleted
# History of Prostate Cancer s/p prostatectomy
s/p serrano removal.
voiding.
# Hypophosphatemia/Hypokalemia
repleted
# Mild thrombocytopenia, resolved
DVT Prophylaxis: Heparin gtt
Code Status: Full
Dispo: PT/OT recc acute rehab.
DW RN
DW on the phone
total time spent 51 min
Anticipated Discharge: > 48 hours
Subjective/Interval History
-
Date of Service: June 26, 2024
Objective Data
-
Labs:
Laboratory Results
06/26/24
04:09
APTT 96.9 H
Sodium 138
Potassium 3.5
Chloride 99
Carbon Dioxide 34 H
BUN 29 H
Creatinine 1.1
Glucose 125 H
Calcium 9.0
Vital Signs:
Vital Signs
Temp Pulse Resp BP Pulse Ox
36.6 C 71 20 121/65 95
06/26/24 03:30 06/26/24 04:00 06/25/24 19:01 06/26/24 03:55 06/26/24 03:30
I&O
06/25/24 06/26/24 06/27/24
06:59 06:59 06:59
Intake Total 102 / 102 118 / 118
Output Total 950 / 950 1300 / 1300
Balance -848 / -848 -1182 / -1182
Review of Systems
-
All other systems: Reviewed and negative
Physical Exam
-
General: Well Developed, Well Nourished, Comfortable and Conversant
HEENT: Normocephalic, Atraumatic, Moist Mucous Membranes and Oxygen (1-2L NC )
Respiratory: Clear to Auscultation and Non Labored Respirations; Negative Accessory Resp Muscle Use
Cardiac: Regular Rhythm and S1/S2
GI: Soft, Nontender, Nondistended and Normal Bowel Sounds
Neuro: Awake, Alert and No Motor Deficits (moving all 4 extremities ); Negative Slurred Speech or Facial Droop
Psych: Calm and Intact Judgement/Insight (somewhat)
Data Reviewed
-
Labs: Labs Reviewed by me
[2024-06-26] MEDS: ZESTRIL 5 MG PO (08:34)
[2024-06-26] MEDS: LOW STRENGTH ASPIRIN 81 MG PO ×2 (08:34)
[2024-06-26] MEDS: AUGMENTIN 875 MG/125 MG 1 TABLET PO (08:34)
[2024-06-26] MEDS: VITAMIN B1 100 MG PO ×2 (08:34→20:01)
[2024-06-26] MEDS: PEPCID 20 MG PO (08:35)
[2024-06-26] MEDS: COREG 6.25 MG PO ×2 (08:35→20:00)
[2024-06-26] MEDS: FOLVITE 1 MG PO (08:35)
[2024-06-26] MEDS: KCL 40 MEQ PO (08:44)
--- NOTE | 2024-06-26 09:37 | W.PN.CARDCBS ---
Addendum entered and electronically signed by Sai Steve DO 06/26/24 11:40:
I saw and examined the patient.
The [employer] Developer's note was reviewed and I agree with the note.
Comment:
Plan:
Patient with witnessed OOH VF arrest requiring 8 rounds epi and 7 shocks with ROSC on 06/19/24, he completed TTM protocol and then ETOH withdrawal. Patient now in the IVU.
Continue IV heparin while outpt Xarelto on hold
Discuss cath right and left given new CM and OOH cardiac arrest.
-Pending results of cardiac cath will consider for eventual ICD for secondary prevention of sudden cardiac
Outpatient dose of Toprol XL changed to Coreg 6.25 mg BID
New to lisinopril 5 mg daily
Continue statin and ASA
Pt agreeable to cath.
Discussed with nursing.
Original Note:
Today's Communication / Plan
-
Likely cath today
Clear liquids for breakfast
Impression / Plan
-
Primary Recruiting Specialist: Dr. Fulton, last seen 09/2023
Impression:
Presentation with witnessed OOH arrest, VF s/p 8 rounds of epi and 7 shocks with ROSC, intubated 06/19/24
Alcohol withdrawal, h/o severe ETOH use disorder
Hypotension requiring pressor support
Newly diagnosed cardiomyopathy with global hypokinesis EF 30%
Elevated troponin, peak trop 11.5
Paroxysmal AF
Chronic Xarelto OAC
Leukocytosis, improving
Lactic acidosis / Hypokalemia, improved
Elevated LFTs, improving
Hypomagnesemia, improved
History of prolonged QTc
HTN
prostate cancer s/p prostatectomy 2017
Former smoker
VIRGILIO 04/20/23: EF 50 to 55%, mild TR, PAP 60 mmHg, no thrombus detected in [place], CV followed
Echo 06/20/24: EF 30% with global hypokinesis, RV dilatation, mildly reduced right ventricular systolic function, no significant valvular disease. Mild MR and mild TR.
Plan:
-Patient with witnessed OOH VF arrest requiring 8 rounds epi and 7 shocks with ROSC on 06/19/24, he completed TTM protocol and then ETOH withdrawal. Patient now in the IVU.
-Amiodarone infusion was started on admission due to brief wide complex tachycardia. Amiodarone gtt converted to PO and then QT prolonged and it was stopped with last dose given 06/22/24
-Outpatient dose of Xarelto 20 mg daily (CrCl 69) has been on hold since admission. Heparin gtt running and platelets stable at 159 on 06/25/24
-Change in mental status earlier this admission likely multifactorial including cardiac arrest and ETOH withdrawal. MRI brain without acute change 06/21/24.
-Pending results of cardiac cath will consider for eventual ICD for secondary prevention of sudden cardiac
-Outpatient dose of Toprol XL changed to Coreg 6.25 mg BID
-New to lisinopril 5 mg daily
-New to aspirin 81 mg daily
-LDL 50 and new to atorvastatin 40 mg daily
HPI: Patient is a 69 yo M with PMH PAF on chronic xarelto, HTN, prostate cancer s/p prostatectomy in 2018, former smoker, ETOH use disorder who presented to with witnessed OOH arrest. 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 A bystander who is a nurse started CPR and 911 called. On EMS arrival was noted to be in VF. Reportedly patient received 8 rounds of epi and 7 shocks. ROSC achieved after ~20 minutes and brought to ER. Reportedly had
complained of some heartburn recently per , but no c/o chest pain, and has also has had some LE edema. Reportedly drinks significant amount of vodka daily. Patient presently on cooling protocol, intubated, sedated. Trop peaked at 11.5.
Progress Note - Recruiting Specialist
Subjective
Date of Service: June 26, 2024
Feels well, would like to have cath today if possible
Objective
Labs:
06/25/24 05:29
06/26/24 04:09
Labs
Hgb 11.4 g/dL (13.0-18.0) L 06/25/24 05:29
Hct 32.7 % (39.0-52.0) L 06/25/24 05:29
Plt Count 159 10^3/uL (130-400) 06/25/24 05:29
PT 15.1 Sec (11.4-14.6) H 06/22/24 03:53
INR 1.19 06/22/24 03:53
APTT 96.9 Sec (23.4-35.0) H 06/26/24 04:09
Sodium 138 mmol/L (135-145) 06/26/24 04:09
Potassium 3.5 mmol/L (3.5-5.1) 06/26/24 04:09
BUN 29 mg/dl (9-20) H 06/26/24 04:09
Creatinine 1.1 mg/dL (0.7-1.3) 06/26/24 04:09
Glucose 125 mg/dl (70-99) H 06/26/24 04:09
Vital Signs and I&O:
Vital Signs
Temp Pulse Resp BP Pulse Ox
97.8 F 71 20 121/65 95
06/26/24 03:30 06/26/24 04:00 06/25/24 19:01 06/26/24 03:55 06/26/24 03:30
Vital Signs
Temp Pulse Resp BP Pulse Ox
97.8 F 71 20 121/65 95
06/26/24 03:30 06/26/24 04:00 06/25/24 19:01 06/26/24 03:55 06/26/24 03:30
Intake & Output
06/24/24 06/25/24 06/26/24 06/27/24
06:59 06:59 06:59 06:59
Intake Total 1306 / 1306 102 / 102 118 / 118
Output Total 1050 / 1050 950 / 950 1300 / 1300
Balance 256 / 256 -848 / -848 -1182 / -1182
Physical Exam
Physical Exam
GEN: NAD, AAO to person, place and situation
HEENT: EOMI, MMM
LUNGS: No audible wheeze
CV: SR on tele
ABD: ND
EXT: +1 B/L LE edema
--- NOTE | 2024-06-26 12:27 | CM ---
Addendum entered by ANANTH Zavala 06/26/24 15:14:
Met w/ patient, spouse at bedside. Introduced CM.
Reviewed plan for Acute Rehab @ [facility]-preference is [facility].
Pt. and spouse anticipate another procedure tomorrow.
Will cont. to follow.
Original Note:
Pt. transferred to IVU.
Reviewed initial assessment. Prior to admission, patient was residing w/ spouse in a private, 2 story home w/ 2 HUONG. Functionally, patient is indep. w/ ADLs, mobility without the use of any assisted device.
Attempted to meet w/ patient at bedside; pt. sleeping soundly.
Reviewed PT evaluation. Recommendation is for ARU. Referrals made to [facility] as first choice and SNFs as second option. Await PMR eval.
CM to follow.
No authorization required for placement.
[2024-06-26] MEDS: NSS 1000 IV (14:25)
--- NOTE | 2024-06-26 14:34 | ITS.CL.CATH ---
[employer] - Catheterization
Cardiac Catheterization
Procedure Report:
LEFT HEART CATHETERIZATION
Date of Procedure: June 26, 2024
Referring: Dr. Mack Alonso
PROCEDURES:
1. Left heart catheterization with coronary and single-plane left ventriculography
INDICATION: This is a 69-year-old gentleman with a past medical history notable for paroxysmal atrial fibrillation on chronic anticoagulation with Xarelto, hypertension, and history of alcohol use disorder who presented to [place] for
evaluation following an [id number] cardiac arrest. Apparently the patient had walked into an [employer] store and suddenly collapsed. Bystander CPR was initiated and 911 was called. Patient was found to be in ventricular fibrillation and
required multiple rounds of epinephrine and shocks prior to return of spontaneous circulation. He was brought to [place] emergency department and serial troponin levels were followed peaking at 11.5 ng/ml. His reported that he
consumed 'a significant amount of vodka on most days'. He was treated with targeted temperature management protocol, intubated, and sedated. Fortunately he had reasonable neurologic recovery although is still somewhat forgetful. An echocardiogram
was notable for global hypokinesis with an estimated ejection fraction of 30%. He is now referred for coronary angiography
ACCESS: Right radial artery, 6 Wolof sheath
HEMODYNAMICS : (mmHg)
AO (s/d) : 112/46
LV (s/d) : 114/17
LVEDP : 29
CORONARY FINDINGS
DOMINANCE: Codominant
LEFT MAIN: The left main was cannulated with a JL 4 diagnostic catheter. The left main appears angiographically normal.
LEFT ANTERIOR DESCENDING: The LAD arises normally from the left main and runs in the anterior interventricular groove. There is a 40% stenosis in the mid LAD beyond the first diagonal branch and the remainder of the LAD has only minor
irregularities as it wraps around the apex. A large septal cascade arises very proximally from the LAD. The first diagonal branch arises from the proximal one third of the LAD and has minor irregularities.
RAMUS: Medium caliber vessel with minor irregularities
CIRCUMFLEX: A large first obtuse marginal branch arises very proximally from the circumflex and runs in a distribution typical for a ramus intermedius. OM1 is large and widely patent. The mid circumflex gives rise to a very small OM 2 then
continues in the AV groove supplying a sizable posterolateral system and small codominant PDA
RIGHT CORONARY ARTERY: Small codominant vessel
VENTRICULOGRAPHY: Left ventriculography is performed in an WAGNER projection. The digital single-plane left ventricular ejection fraction is visually estimated at 45% with mild global hypokinesis
RADIATION SUMMARY: Fluoro Time (min): 6.1, Dose (mGy): 1122, DAP (Gy.cm2) : 81
Closure Device: TR band
CONCLUSIONS
1. Nonobstructive coronary disease
2. Zey-kw-nkrqwbmz cardiac arrest with prolonged resuscitation. An echocardiogram from 06/20/2024 was notable for an ejection fraction of 30%. The left ventricular ejection fraction by ventriculography is visually estimated at 45%
RECOMMENDATIONS
1. Will discuss with our electrophysiology colleagues, however, given sudden cardiac I would lean towards ICD implant.
Copy to: Dr. Mack Alonso
[2024-06-26] MEDS: LIPITOR 40 MG PO (17:48)
[2024-06-26] MEDS: SAPHRIS 2.5 MG SL (22:05)
--- NOTE | 2024-06-26 22:44 | PTCARENOTE ---
Pt. received at change of shift. Pt. seen and assessed in room. Pt. AOx2, to self and place. Needs redirection with time. Pt. tele reading NSR, BP 90s-119s/50s-60s. No complaints of pain at this time. Heparin drip restarted per protocol. RN
verbalized plan of care, pt. verbalizes understanding. Call [facility] within reach, bed alarm activated. Continuing to monitor at this time.
[2024-06-27] VITALS (14 sets, daily range): BP systolic 109–131; BP diastolic 61–78; PULSE 75; O2SAT 92; BMI 34.5
[2024-06-27 02:47] LABS: Hematocrit 29.1 % (39.0-52.0); Hemoglobin 10.1 g/dL (13.0-18.0); Mean Corp Hgb Conc. 34.7 g/dL (33.0-37.0); Mean Corpuscular Hgb 35.3 pg (27.0-31.0); Mean Corpuscular Volume 101.7 fL (80.0-94.0); Mean Platelet Volume 10.8 fL (7.4-10.4); Platelet Count 205 10^3/uL (130-400); Red Blood Cell Count 2.86 10^6/uL (4.70-6.10); Red Cell Dist. Width 13.6 % (11.5-14.5)
[2024-06-27 02:52] LABS: APTT 42.3 Sec (23.4-35.0)
[2024-06-27 03:11] LABS: Blood Urea Nitrogen 24 mg/dl (9-20); Calcium 8.9 mg/dl (8.4-10.2); Carbon Dioxide 29 mmol/L (22-30); Chloride 103 mmol/L (98-107); Estimated Creatinine Clearance 85 ml/min; Glucose 99 mg/dl (70-99); Magnesium 1.5 mg/dl (1.6-2.3); Potassium 4.2 mmol/L (3.5-5.1); Sodium 138 mmol/L (135-145); eGFR > 60.00
[2024-06-27] MEDS: MAGNESIUM SULFATE 50 IV (04:53)
--- NOTE | 2024-06-27 08:19 | W.PN.HOSP.TC ---
Today's Communication/Plan
-
see A/P
Assessment / Plan
Assessment / Plan
A/P: 69 yo M with PMH significant for A-Fib and alcohol use disorder who presented to ED after [id number]-ijrisngr cardiac arrest.
A/P:
# Cardiac Arrest with cardiogenic shock
# Ventricular Fibrillation
# History of Prolonged QT
# Lactic Acidosis secondary to the above; Lactic Acidosis has resolved
# Acute hypoxic and hypercapnic respiratory failure status post intubation
Differential etiology of arrest includes acute ischemia / CAD, arrhythmia due to long QT, etc.
Status post intubation on admission and status post extubation 06/20
He underwent cooling protocol.
s/p Pressor
IV Amiodarone was transitioned to PO- but held due to prolonged Qtc.
s/p cardiac catheterization 06/26: Nonobstructive coronary disease
Plan for ICD implant due to risk of sudden cardiac
# Acute Metabolic encephalopathy likely due to ICU delirium versus alcohol withdrawal versus cardiac arrest related hypoperfusion
# Severe alcohol use disorder
reported significant EtOH intake. Approximately 3L of vodka weekly
No history of withdrawal syndromes, seizures, etc.
Follow [facility]
CT head: no acute intracranial abnormality. Mild age-related changes.
MRI negative for acute CVA
EEG negative for active seizures.
Neurology signed off
Unclear how much patient's mentation would improve s/p cardiac arrest and heavy alcohol usage prior to arrival
Monitor MS/ cognitive recovery
# Dysphagia likely due to post extubation, resolved
advanced to low cholesterol diet
# Elevated troponin secondary to cardiac arrest status post defibrillation
No STEMI on initial EKG.
IV heparin for now.
# Cardiogenic Pulmonary Edema
# Acute HFrEF
Noted on CXR and CT cervical spine.
Echo: normal left ventricular chamber size. Moderate reduced left ventricular systolic function. EF 30%. Global hypokinesis. Mild concentric LVH. Right ventricle is mildly dilated. Mildly reduced RV function.
Status post Lasix. Further diuretics held.
Added ASA, Coreg, Lisinopril, Lipitor
Cardiology on board.
# Acute kidney injury secondary to cardiac arrest from ATN and rhabdomyolysis, TERA has resolved
S/p IV Lasix
S/p IVF.
Cr improved from 1.8 on admission to 0.9 today
# Paroxysmal Atrial Fibrillation
Currently in sinus rhythm with 1st degree AV block.
Hold Xarelto, on IV heparin for now.
Monitor on telemetry.
IV Amiodarone was transitioned to PO- but held due to prolonged Qtc.
# Leukocytosis, resolved
?aspiration pneumonia
s/p Unasyn/Augmentin
WBC normalized
# Transaminitis likely secondary to cardiac arrest, resolved
# History of Prostate Cancer s/p prostatectomy
s/p serrano removal.
voiding.
# Hypokalemia
# Hypomagnesemia
replete
# Mild thrombocytopenia, resolved
DVT Prophylaxis: Heparin gtt
Code Status: Full
Dispo: PT/OT recc acute rehab.
Anticipated Discharge: > 48 hours
Subjective/Interval History
-
Date of Service: June 27, 2024
Objective Data
-
Labs:
Laboratory Results
06/27/24 06/27/24 06/27/24
02:32 06:00 09:05
WBC 8.0
Hgb 10.1 L
Hct 29.1 L
Plt Count 205 D
APTT 42.3 H Pending Pending
Sodium 138
Potassium 4.2
Chloride 103
Carbon Dioxide 29
BUN 24 H
Creatinine 0.9
Glucose 99
Calcium 8.9
Vital Signs:
Vital Signs
Temp Pulse Resp BP Pulse Ox
37.2 C 61 18 122/68 98
06/27/24 07:29 06/27/24 03:13 06/26/24 14:31 06/27/24 03:13 06/27/24 07:29
I&O
06/26/24 06/27/24 06/28/24
06:59 06:59 06:59
Intake Total 118 / 118 479 / 479
Output Total 1300 / 1300 750 / 750
Balance -1182 / -1182 -271 / -271
Review of Systems
-
All other systems: Reviewed and negative
Physical Exam
-
General: Well Developed, Well Nourished, Comfortable and Conversant
HEENT: Normocephalic, Atraumatic, Moist Mucous Membranes and Oxygen (1-2L NC )
Respiratory: Clear to Auscultation and Non Labored Respirations; Negative Accessory Resp Muscle Use
Cardiac: Regular Rhythm and S1/S2
GI: Soft, Nontender, Nondistended and Normal Bowel Sounds
Neuro: Awake, Alert and No Motor Deficits (moving all 4 extremities ); Negative Slurred Speech or Facial Droop
Psych: Calm and Intact Judgement/Insight (somewhat)
Data Reviewed
-
Labs: Labs Reviewed by me
[2024-06-27] MEDS: VITAMIN B1 100 MG PO ×2 (08:37→20:19)
[2024-06-27] MEDS: LOW STRENGTH ASPIRIN 81 MG PO (08:38)
[2024-06-27] MEDS: PEPCID 20 MG PO (08:38)
[2024-06-27] MEDS: ZESTRIL 5 MG PO (08:39)
[2024-06-27] MEDS: COREG 6.25 MG PO ×2 (08:39→20:19)
[2024-06-27] MEDS: FOLVITE 1 MG PO (08:39)
--- NOTE | 2024-06-27 09:45 | W.PN.UPDATE ---
Update Note
Progress Note Update
Discussed with patient at the bedside risks benefits and treatment alternatives to single-chamber ICD implantation. Currently is on heparin which was stopped and we will place a left forearm IV as he is right-handed. Discussed a 1 of thousand risk
of and a 1% risk of pneumothorax tamponade infection or bleeding. Reason for implantation of a secondary prevention device for documented sudden cardiac associated with ventricular fibrillation. His electrolytes upon admission and
throughout hospitalization of have been within normal limits. I took time to answer all questions and patient signed informed consent to proceed later today.
--- NOTE | 2024-06-27 12:05 | PTCARENOTE ---
Discussed all nursing measures and plan of care w/ pt and pt's . Pt is scheduled for an ICD implant this afternoon. CHG prep completed.
--- NOTE | 2024-06-27 15:34 | ITS.CL.ABL ---
[employer] - [employer]
Ablation
Procedure Report:
Date of Procedure: June 27, 2024
Patient : [id number]
Procedures: Single-chamber ICD implantation
Indication: Secondary prevention ICD with documented VF and sudden cardiac outside of hospital with survival to hospital admission status post heart catheterization which did not demonstrate any significant coronary artery disease and history
of paroxysmal atrial fibrillation
�
Implants:
Pulse Generator: [employer]; Model# DV PA 2 D4; Serial#�RSD [id number]
Right Ventricular Lead: Medtronic; Model# 6935-62 cm; Serial#TD [id number]
�
Technique: The patient was prepped and draped in the usual fashion. Local anesthetic was applied to the left prepectoral subcutaneous tissue. A 4 inch incision was made. The left axillary vein was accessed��without difficulty. A subcutaneous pocket
was CREATED. Hemostasis was excellent. The right ventricular lead was placed at the right ventricular apex. 10 volt pacing did not capture the diaphragm. The leads were secured to the pectoralis muscle and fascia. The leads were appropriately
attached to the device. The pocket was irrigated with antibiotic solution. The device and leads were placed in the pocket and the device was secured to pectoralis muscle and facia. The incision was closed with absorbable sutures. The estimated blood
loss was minimal. There were no complications. Device based testing was performed as described below. IV contrast total: 5 cc.
�
System Analysis:
RV lead: R: 3.6 mV; Threshold: 0.4 V @ 0.5 ms; Impedance: 342 ohms.
Final Programming: Tachy: VT/VF:188; VVI 40 bpm
�
Conclusion: Uncomplicated single-chamber ICD implant
�
Recommendation: Routine post ICD care
�
cc: Dr. Kyle Fulton
�
--- NOTE | 2024-06-27 16:15 | PTCARENOTE ---
Received pt post ICD. Pt w/ left ACW aquacel dressing intact. Left arm immobilizer on. VSS. Post ICD EKG obtained. Will monitor.
[2024-06-27] MEDS: LIPITOR 40 MG PO (17:52)
[2024-06-27] MEDS: ANCEF 5 IV (20:19)
[2024-06-27] MEDS: SAPHRIS 2.5 MG SL (21:54)
[2024-06-28] VITALS (7 sets, daily range): BP systolic 109–146; BP diastolic 63–74; PULSE 65–69; O2SAT 93; BMI 32.1
[2024-06-28 04:21] LABS: Hematocrit 32.3 % (39.0-52.0); Hemoglobin 11.1 g/dL (13.0-18.0); Mean Corp Hgb Conc. 34.4 g/dL (33.0-37.0); Mean Corpuscular Hgb 35.6 pg (27.0-31.0); Mean Corpuscular Volume 103.5 fL (80.0-94.0); Platelet Count 251 10^3/uL (130-400); Red Blood Cell Count 3.12 10^6/uL (4.70-6.10); Red Cell Dist. Width 13.7 % (11.5-14.5); White Blood Cell Count 8.8 10^3/uL (4.8-10.8)
[2024-06-28 04:34] LABS: Blood Urea Nitrogen 19 mg/dl (9-20); Calcium 9.3 mg/dl (8.4-10.2); Carbon Dioxide 29 mmol/L (22-30); Chloride 101 mmol/L (98-107); Estimated Creatinine Clearance 86 ml/min; Glucose 82 mg/dl (70-99); Magnesium 1.7 mg/dl (1.6-2.3); Sodium 142 mmol/L (135-145); eGFR > 60.00
[2024-06-28] MEDS: ANCEF 5 IV (05:26)
--- NOTE | 2024-06-28 07:31 | W.PN.HOSP.TC ---
Addendum entered and electronically signed by Raquel Herrmann MD 06/28/24 14:42:
Patient has significantly improved, and he no longer requires [place] re[facility].
Patient and his would like to return home.
Plan is for DC home with home health.
total DC time 37 min
Original Note:
Today's Communication/Plan
-
for [place]
Assessment / Plan
Assessment / Plan
A/P: 69 yo M with PMH significant for A-Fib and alcohol use disorder who presented to ED after [id number]-[id number] cardiac arrest.
A/P:
# Cardiac Arrest with cardiogenic shock
# Ventricular Fibrillation
# History of Prolonged QT
# Lactic Acidosis secondary to the above; Lactic Acidosis has resolved
# Acute hypoxic and hypercapnic respiratory failure status post intubation
Differential etiology of arrest includes acute ischemia / CAD, arrhythmia due to long QT, etc.
Status post intubation on admission and status post extubation 06/20
He underwent cooling protocol.
s/p Pressor
IV Amiodarone was transitioned to PO- but discontinued due to prolonged Qtc.
s/p cardiac catheterization 06/26: Nonobstructive coronary disease
s/p ICD implant due to risk of sudden cardiac
# Acute Metabolic encephalopathy likely due to ICU delirium versus alcohol withdrawal versus cardiac arrest related hypoperfusion
# Severe alcohol use disorder
reported significant EtOH intake. Approximately 3L of vodka weekly
No history of withdrawal syndromes, seizures, etc.
Follow [facility]
CT head: no acute intracranial abnormality. Mild age-related changes.
MRI negative for acute CVA
EEG negative for active seizures.
Neurology signed off
Patient's mentation has improved. He is AOx3
# Dysphagia likely due to post extubation, resolved
advanced to low cholesterol diet
# Elevated troponin secondary to cardiac arrest status post defibrillation
No STEMI on initial EKG.
s/p IV heparin
# Cardiogenic Pulmonary Edema
# Acute HFrEF
Noted on CXR and CT cervical spine.
Echo: normal left ventricular chamber size. Moderate reduced left ventricular systolic function. EF 30%. Global hypokinesis. Mild concentric LVH. Right ventricle is mildly dilated. Mildly reduced RV function.
Status post Lasix. Further diuretics held.
Added ASA, Coreg, Lisinopril, Lipitor
Cardiology on board.
# Acute kidney injury secondary to cardiac arrest from ATN and rhabdomyolysis, TERA has resolved
S/p IV Lasix
S/p IVF.
Cr improved from 1.8 on admission to 0.9 today
# Paroxysmal Atrial Fibrillation
Currently in sinus rhythm with 1st degree AV block.
s/p IV heparin.
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
Monitor on telemetry.
IV Amiodarone was transitioned to PO- but discontinued due to prolonged Qtc.
# Leukocytosis, resolved
?aspiration pneumonia
s/p Unasyn/Augmentin
# Transaminitis likely secondary to cardiac arrest, resolved
# History of Prostate Cancer s/p prostatectomy
s/p serrano removal.
voiding.
# Hypokalemia
# Hypomagnesemia
replete
# Mild thrombocytopenia, resolved
DVT Prophylaxis: Heparin gtt
Code Status: Full
Dispo: [place] [facility].
DW RN
DARY Supervisor [employer]
updated on the phone
Anticipated Discharge: Within 24 hours
Subjective/Interval History
-
Date of Service: June 28, 2024
Objective Data
-
Labs:
Laboratory Results
06/28/24
02:40
WBC 8.8
Hgb 11.1 L
Hct 32.3 L
Plt Count 251 D
Sodium 142
Potassium 4.0
Chloride 101
Carbon Dioxide 29
BUN 19
Creatinine 0.9
Glucose 82
Calcium 9.3
Vital Signs:
Vital Signs
Temp Pulse Resp BP Pulse Ox
36.7 C 75 20 141/71 95
06/28/24 06:42 06/28/24 06:41 06/28/24 06:42 06/28/24 06:41 06/28/24 06:42
I&O
06/27/24 06/28/24 06/29/24
06:59 06:59 06:59
Intake Total 479 / 479 348 / 348
Output Total 750 / 750 250 / 250
Balance -271 / -271 98 / 98
Review of Systems
-
All other systems: Reviewed and negative
Physical Exam
-
General: Well Developed, Well Nourished, Comfortable and Conversant
HEENT: Normocephalic, Atraumatic and Moist Mucous Membranes; Negative Oxygen
Respiratory: Clear to Auscultation and Non Labored Respirations; Negative Accessory Resp Muscle Use
Cardiac: Regular Rhythm and S1/S2
GI: Soft, Nontender, Nondistended and Normal Bowel Sounds
Neuro: Awake, Alert and No Motor Deficits (moving all 4 extremities ); Negative Slurred Speech or Facial Droop
Psych: Calm and Intact Judgement/Insight (somewhat)
Data Reviewed
-
Labs: Labs Reviewed by me
[2024-06-28] MEDS: COREG 6.25 MG PO (07:59)
[2024-06-28] MEDS: ZESTRIL 5 MG PO (07:59)
[2024-06-28] MEDS: FOLVITE 1 MG PO (07:59)
[2024-06-28] MEDS: LOW STRENGTH ASPIRIN 81 MG PO (07:59)
[2024-06-28] MEDS: PEPCID 20 MG PO (08:00)
[2024-06-28] MEDS: VITAMIN B1 100 MG PO (08:00)
--- NOTE | 2024-06-28 08:58 | CM ---
Addendum entered by ANANTH Zavala 06/28/24 14:48:
[facility] able to accept.
Addendum entered by ANANTH Zavala 06/28/24 13:48:
PT-OT evaluations reviewed. Pt. doing well and will not qualify for inpatient rehab. I called Quagn Rowan liatrenton and she confirmed this.
Met w/ patient and spouse at bedside. We reviewed this. Spouse OK to take pt. home, does not wish to pursue SNF placement.
Would be OK for home-care, specifically RN for vital check, etc.
She would prefer him to come home tomorrow so she can prepare. I have let MD know and she is going to DC today.
Plan is for home w/ VN. Referral made to [facility], awaiting response.
Will follow.
Addendum entered by ANANTH Zavala 06/28/24 09:13:
Call to [facility]. She is following for admission.
Need updated PT-OT, PMR prior to acceptance.
Original Note:
CM following for DC planning needs.
Noted that patient is medically stable for trsf to [place].
Last PT note, dated 06/27 indicated that patient was ambulating at 150 ftx2 at supervision level. Last OT note was 06/24. Call to PT-OT, requested updated evals and to confirm that [place] level of care is still indicated.
Still awaiting PMR eval. Will review with sami Brown at [facility].
--- NOTE | 2024-06-28 09:07 | PTCARENOTE ---
Rec'd pt this shift awake and alert in bed.Pt NSR on monitor. Pt with left upper chest with small amount bloody drainage noted. Left arm immobilizer in place. Pt denies pain, denies sob. See worklist for VS/I and O and assessments.
--- NOTE | 2024-06-28 09:47 | PTCARENOTE ---
Rec'd pt this shift awake in bed. pt forgetful. denies pain, denies sob. RA. Pt using walker in room with minimal assistance. Left chest with dsg intact, small amount old drainage. Pt NSR on monitor. See worklist for VS/I and O and assessments.
--- NOTE | 2024-06-28 12:22 | W.PN.CARDCBS ---
Addendum entered and electronically signed by Elías Fulton MD 06/28/24 16:45:
I saw and examined the patient.
The Operations Professional's note was reviewed and I agree with the note.
Comment: Briefly, 69-year-old man presenting with fno-[id number] VT/VF cardiac arrest and was found to have new cardiomyopathy with LVEF 30%
He underwent left heart catheterization which revealed mild non-obstructive coronary disease
ICD implanted yesterday for secondary prevention, pacemaker site is clean dry and intact
No cardiac complaints this morning
No arrhythmias on review of telemetry
Agree with Coreg and lisinopril for treatment of cardiomyopathy
Continue atorvastatin for mild coronary disease
Maintained on Xarelto for history of atrial fibrillation
Stable cardiac status
Outpatient follow-up to be arranged
Original Note:
Today's Communication / Plan
-
Xarelto restarting tomorrow night
Stable for [place] from a cardiac standpoint
Impression / Plan
-
Primary Cream Beater: Dr. Fulton, last seen 09/2023
Impression:
Presentation with witnessed OOH arrest, VF s/p 8 rounds of epi and 7 shocks with ROSC, intubated 06/19/24
Alcohol withdrawal, h/o severe ETOH use disorder
Hypotension requiring pressor support
Newly diagnosed cardiomyopathy with global hypokinesis EF 30%
Elevated troponin, peak trop 11.5
Paroxysmal AF
Chronic Xarelto OAC
Leukocytosis, improving
Lactic acidosis / Hypokalemia, improved
Elevated LFTs, improving
Hypomagnesemia, improved
History of prolonged QTc
HTN
prostate cancer s/p prostatectomy 2017
Former smoker
Nonobstructive coronary disease by cath 06/26/24
s/p Medtronic single chamber ICD 06/27/24
VIRGILIO 04/20/23: EF 50 to 55%, mild TR, PAP 60 mmHg, no thrombus detected in [place], CV followed
Echo 06/20/24: EF 30% with global hypokinesis, RV dilatation, mildly reduced right ventricular systolic function, no significant valvular disease. Mild MR and mild TR.
Plan:
-Patient is s/p Medtronic single chamber ICD 06/27/24. Activity limitations reviewed with patient
-Outpatient dose of Xarelto 20 mg daily (CrCl 86) can be restarted 06/29/24, orders updated by me
-Patient with witnessed OOH VF arrest requiring 8 rounds epi and 7 shocks with ROSC on 06/19/24, he completed TTM protocol and then ETOH withdrawal.
-Amiodarone infusion was started on admission due to brief wide complex tachycardia. Amiodarone gtt converted to PO and then QT prolonged and it was stopped with last dose given 06/22/24
-Change in mental status earlier this admission likely multifactorial including cardiac arrest and ETOH withdrawal. MRI brain without acute change 06/21/24.
-Outpatient dose of Toprol XL changed to Coreg 6.25 mg BID
-New to lisinopril 5 mg daily. Cre and potassium stable 06/28/24.
-New to aspirin 81 mg daily this admission
-LDL 50 and new to atorvastatin 40 mg daily
-Patient is hoping for transfer to [facility] 06/28/24. Patient can participate in rehab at [facility] and will follow activity limitations regarding LUE outlined in d/c instructions.
HPI: Patient is a 69 yo M with PMH PAF on chronic xarelto, HTN, prostate cancer s/p prostatectomy in 2018, former smoker, ETOH use disorder who presented to with witnessed OOH arrest. 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 A bystander who is a nurse started CPR and 911 called. On EMS arrival was noted to be in VF. Reportedly patient received 8 rounds of epi and 7 shocks. ROSC achieved after ~20 minutes and brought to ER. Reportedly had
complained of some heartburn recently per , but no c/o chest pain, and has also has had some LE edema. Reportedly drinks significant amount of vodka daily. Patient presently on cooling protocol, intubated, sedated. Trop peaked at 11.5.
Progress Note - Cream Beater
Subjective
Date of Service: June 28, 2024
He feels well
Objective
Labs:
06/28/24 02:40
06/28/24 02:40
Labs
Hgb 11.1 g/dL (13.0-18.0) L 06/28/24 02:40
Hct 32.3 % (39.0-52.0) L 06/28/24 02:40
Plt Count 251 10^3/uL (130-400) D 06/28/24 02:40
PT 15.1 Sec (11.4-14.6) H 06/22/24 03:53
INR 1.19 06/22/24 03:53
APTT Cancelled 06/27/24 09:05
Sodium 142 mmol/L (135-145) 06/28/24 02:40
Potassium 4.0 mmol/L (3.5-5.1) 06/28/24 02:40
BUN 19 mg/dl (9-20) 06/28/24 02:40
Creatinine 0.9 mg/dL (0.7-1.3) 06/28/24 02:40
Glucose 82 mg/dl (70-99) 06/28/24 02:40
Vital Signs and I&O:
Vital Signs
Temp Pulse Resp BP Pulse Ox
98.2 F 69 18 109/63 94
06/28/24 11:41 06/28/24 11:54 06/28/24 11:41 06/28/24 11:54 06/28/24 11:41
Vital Signs
Temp Pulse Resp BP Pulse Ox
98.2 F 69 18 109/63 94
06/28/24 11:41 06/28/24 11:54 06/28/24 11:41 06/28/24 11:54 06/28/24 11:41
Intake & Output
06/26/24 06/27/24 06/28/24 06/29/24
06:59 06:59 06:59 06:59
Intake Total 118 / 118 479 / 479 348 / 348 500 / 500
Output Total 1300 / 1300 750 / 750 250 / 250
Balance -1182 / -1182 -271 / -271 98 / 98 500 / 500
Physical Exam
Physical Exam
GEN: NAD, AAO to person, place and situation
HEENT: EOMI, MMM
LUNGS: No audible wheeze
CV: SR on tele
ABD: ND
EXT: +Trace B/L LE edema
--- NOTE | 2024-06-28 13:40 | W.DCSUMMARY ---
Discharge Summary
Discharge Data
Date of Admission: 06/19/24
Date of Discharge: 06/28/24
-
Pending Results: No
Hospital Course
Principal Diagnosis:
Cardiac arrest with cardiogenic shock/ventricular fibrillation
Cardiogenic Pulmonary Edema
Acute heart failure with reduced ejection fraction
Transaminitis likely secondary to cardiac arrest, resolved
Acute Metabolic encephalopathy likely due to ICU delirium versus alcohol withdrawal. Mental status improved.
Resolved lactic acidosis
Resolved Acute kidney injury (TERA)
Chronic Diagnoses:�
Paroxysmal Atrial Fibrillation, resume Xarelto 06/29/24
History of Prostate Cancer s/p prostatectomy
Severe alcohol use disorder
Consultations:�
Cardiology
Boat Ride Operator
Neurology
Procedures:�
Cardiac catheterization 06/26/2024: Nonobstructive coronary disease
ICD implant due to risk of sudden cardiac on 06/27/2024.
Clinical course:�
This is a 69 year old male with past medical history as stated above who presented to the emergency room from pgn-[id number] cardiac arrest.
Problem 1:
Cardiac arrest with cardiogenic shock/ventricular fibrillation, Cardiogenic Pulmonary Edema, Acute heart failure with reduced ejection fraction, Transaminitis (likely secondary to cardiac arrest) and resolved.
The patient was intubated on admission and was extubated on 06/20/24.
He underwent cooling protocol on admission.
He initially required pressor support which was later discontinued.
He was treated with IV Amiodarone for his ventricular fibrillation initially, but due to prolonged Qtc, amiodarone was discontinued.
Hie echo showed moderate reduced left ventricular systolic function with EF 30%, global hypokinesis.
He underwent cardiac catheterization on 06/26/24: Nonobstructive coronary disease.
He also underwent ICD implant on 06/27/2024 due to risk of sudden cardiac .
He was discharged with Coreg 6.25 mg BID (in place of PROFESSOR OF RELIGION Toprol) and lisinopril at 5 mg daily.
Problem 2:
Acute Metabolic encephalopathy likely due to ICU delirium versus alcohol withdrawal
His CT head showed no acute intracranial abnormality.
His MRI brain was also negative for acute CVA.
His EEG was negative for active seizures.
His mental status improved and returned to baseline which was AOx3.
Problem 3:
Acute kidney injury secondary to cardiac arrest from ATN and rhabdomyolysis. TERA has resolved
His Cr improved from 1.8 on admission to 0.9.
As for the rest of his medical problems, they were stable during his hospital stay.
Discharge Plan
-
Patient Disposition: Home with Home Care
Discharge Diagnosis/Procedures: Cardiac Arrest with cardiogenic shock;
Ventricular Fibrillation status post ICD implant (06/27);
Cardiogenic Pulmonary Edema with Acute heart failure (status post Cardiac catheterization 06/26- Nonobstructive coronary disease);
Confusion (resolved);
Condition: Fair
Diet: As tolerated, Low Fat, Low Cholesterol and Low Sodium
Driving Restrictions: No driving
Stand Alone Forms: DC Instructions- Cath/EP Lab, DC Inst - Implanted Device
Referrals:
Mary Alice Bowers CRNP [Specified Professional Personl] - 07/06/24 10:00 am (Post hospital cardiology followup and incision check appointment)
Jin Mcdermott CRNP [Family Provider] - in less than 1 week
Additional Discharge Medication Instructions: Restart Xarelto 06/29/2024 evening
Your Toprol was changed to Coreg 6.25 mg twice daily
Prescriptions:
New
carvedilol 6.25 mg Tablet
6.25 mg PO BID Qty: 60 0RF
atorvastatin 40 mg Tablet
40 mg PO QPM Qty: 30 0RF
lisinopril 5 mg Tablet
5 mg PO DAILY Qty: 30 0RF
Continued
therapeutic multivitamin Tablet
1 tab PO DAILY
Xarelto 20 mg Tablet
20 mg PO DAILY
magnesium oxide 200 mg magnesium Tablet
600 mg PO DAILY
Discontinued
metoprolol succinate 25 mg Tablet Extended Release 24 Hr
25 mg PO DAILY Qty: 30 0RF
Discharge Orders:
Discharge Patient (As Directed); Ordered 06/28/24
Ordered By: Raquel Herrmann
Care Plan Goals
Care Plan Goals:
Problem: Readiness for enhanced knowledge related to diagnosis and treatment plan
Goal: Understand your diagnosis and treatment plan needs, including medications if applicable.
Instructions: Know your diagnosis, underlying causes and treatment plan options, including medications if applicable. Consult with your health care team to learn about your diagnosis and treatment plan, including medications if applicable.
Discharge Date and Time
Print Language: PORTUGUESE
[2024-06-28] MEDS: FLUAD (65 yr+) 2024-2025 FORMULA 0.5 ML IM (14:41)
--- NOTE | 2024-06-28 15:28 | PTCARENOTE ---
discharge instructions given to patient and patients . INT's d/c'd.
== END 2024-06-28 15:34 | disposition home health service (06) | DRG 275 ==
LOC: IVU 21:06
PROVIDERS: Hospitalist; Internal Medicine Cardiovascular Disease; Internal Medicine Interventional Cardiology; Nuclear Medicine Nuclear Cardiology; Nurse Practitioner; Nurse Practitioner Primary Care; ADMITTING PHYSICIAN Hospitalist; ATTENDING PHYSICIAN Internal Medicine; CONSULT PHYSICIAN Internal Medicine Critical Care Medicine; CONSULT PHYSICIAN Psychiatry & Neurology Neurology; EMERGENCY PHYSICIAN Emergency Medicine; FAMILY PHYSICIAN Nurse Practitioner Family; OTHER PHYSICIAN Internal Medicine Cardiovascular Disease
PROC: 5A1935Z Respiratory Ventilation, Less than 24 Consecutive Hours (ICD-10-PCS; 2024-06-20)
PROC: 5A09357 Assistance with Respiratory Ventilation, Less than 24 Consecutive Hours, Continuous Positive Airway Pressure (ICD-10-PCS; 2024-06-20)
PROC: B2111ZZ Fluoroscopy of Multiple Coronary Arteries using Low Osmolar Contrast (ICD-10-PCS; 2024-06-26)
PROC: B2151ZZ Fluoroscopy of Left Heart using Low Osmolar Contrast (ICD-10-PCS; 2024-06-26)
PROC: 4A023N7 Measurement of Cardiac Sampling and Pressure, Left Heart, Percutaneous Approach (ICD-10-PCS; 2024-06-26)
PROC: 0JH608Z Insertion of Defibrillator Generator into Chest Subcutaneous Tissue and Fascia, Open Approach (ICD-10-PCS; 2024-06-27)
PROC: 02HK3KZ Insertion of Defibrillator Lead into Right Ventricle, Percutaneous Approach (ICD-10-PCS; 2024-06-27)
DX: I49.01 Ventricular fibrillation (principal); G93.41 Metabolic encephalopathy; I50.21 Acute systolic (congestive) heart failure; R57.0 Cardiogenic shock; J96.01 Acute respiratory failure with hypoxia; N17.0 Acute kidney failure with tubular necrosis; J96.02 Acute respiratory failure with hypercapnia; J69.0 Pneumonitis due to inhalation of food and vomit; E87.20 Acidosis, unspecified; G93.1 Anoxic brain damage, not elsewhere classified; M62.82 Rhabdomyolysis; F05 Delirium due to known physiological condition; F10.239 Alcohol dependence with withdrawal, unspecified; I46.2 Cardiac arrest due to underlying cardiac condition; I11.0 Hypertensive heart disease with heart failure; I48.0 Paroxysmal atrial fibrillation; E87.6 Hypokalemia; E83.42 Hypomagnesemia; E66.9 Obesity, unspecified; E83.39 Other disorders of phosphorus metabolism; I44.0 Atrioventricular block, first degree; Z68.32 Body mass index [BMI] 32.0-32.9, adult; Z87.891 Personal history of nicotine dependence; Z79.01 Long term (current) use of anticoagulants; Z82.49 Family history of ischemic heart disease and other diseases of the circulatory system; Z85.46 Personal history of malignant neoplasm of prostate; Z90.79 Acquired absence of other genital organ(s); I42.9 Cardiomyopathy, unspecified; R13.10 Dysphagia, unspecified; D69.6 Thrombocytopenia, unspecified; R74.01 Elevation of levels of liver transaminase levels; R79.89 Other specified abnormal findings of blood chemistry
CPT/HCPCS: 33249; 36556; 51702; 70450; 70553; 71045; 72125; 74018; 80048; 80053; 80061; 81003; 81015; 82248; 82550; 82553; 82805; 82962; 83036; 83605; 83735; 83880; 84100; 84134; 84478; 84484; 85025; 85027; 85610; 85730; 86850; 86900; 86901; 90662; 92523; 92526; 92610; 93005; 93306; 93458; 94002; 94003; 94640; 94660; 95813; 96365; 96375; 97116; 97129; 97163; 97167; 97530; 97535; 99291; A9575; C1722; C1892; C1894; G0008; Q9950; Q9967

== ENCOUNTER → 2024-06-30 12:11 | Outpatient (REF) | payer MEDICARE, SELFPAY ==
[2024-06-30 15:42] LABS: % Basophils 0.6 % (0-2); % Immature Granulocytes 0.5 % (0-0.5); % Lymphocytes 8.2 % (20.5-51.1); % Monocytes 8.1 % (1.7-9.3); % Neutrophils 79.6 % (42.2-75.2); Absolute Basophils 0.1 10^3/uL (0-0.2); Absolute Eosinophils 0.4 10^3/uL (0-0.7); Absolute Immature Granulocytes 0.1 10^3/uL (0-0.05); Absolute Lymphocytes 1.1 10^3/uL (1.2-3.4); Absolute Monocytes 1.1 10^3/uL (0.1-0.6); Absolute Neutrophils 10.4 10^3/uL (1.4-6.5); Hematocrit 35.5 % (39.0-52.0); Hemoglobin 11.9 g/dL (13.0-18.0); Mean Corp Hgb Conc. 33.5 g/dL (33.0-37.0); Mean Corpuscular Hgb 34.2 pg (27.0-31.0); Mean Platelet Volume 11.6 fL (7.4-10.4); Nucleated Red Blood Cells % 0 % (-); Platelet Count 333 10^3/uL (130-400); Red Blood Cell Count 3.48 10^6/uL (4.70-6.10); Red Cell Dist. Width 13.8 % (11.5-14.5); White Blood Cell Count 13.1 10^3/uL (4.8-10.8)
[2024-06-30 15:48] LABS: ALT (SGPT) 20 U/L (0-50); AST (SGOT) 28 U/L (17-59); Albumin 3.7 g/dl (3.5-5.0); Alkaline Phosphatase 76 U/L (38-126); Blood Urea Nitrogen 17 mg/dl (9-20); Calcium 9.7 mg/dl (8.4-10.2); Carbon Dioxide 32 mmol/L (22-30); Chloride 99 mmol/L (98-107); Glucose 97 mg/dl (70-99); Iron 52 ug/dl (49-181); Lipase 393 U/L (23-300); Potassium 4.6 mmol/L (3.5-5.1); Sodium 139 mmol/L (135-145); Total Bilirubin 1.4 mg/dl (0.2-1.3); Total Protein 6.5 g/dl (6.3-8.2); eGFR > 60.00
[2024-06-30 15:57] LABS: Percent Saturation 18 % (20-50); Total Iron Binding Capacity 279 ug/dl (261-462)
== END ==
LOC: HWRAD 12:11
PROVIDERS: ATTENDING PHYSICIAN Nurse Practitioner Family
DX: R07.89 Other chest pain (principal); D64.9 Anemia, unspecified; R17 Unspecified jaundice; Z09 Encounter for follow-up examination after completed treatment for conditions other than malignant neoplasm
CPT/HCPCS: 36415; 71046; 80053; 82728; 83540; 83550; 83690; 85025

== ENCOUNTER → 2024-07-03 11:40 | Outpatient (REF) | payer MEDICARE, SELFPAY ==
[2024-07-03 16:12] LABS: % Basophils 1.1 % (0-2); % Eosinophils 3.4 % (0-6); % Immature Granulocytes 0.5 % (0-0.5); % Monocytes 8.8 % (1.7-9.3); % Neutrophils 76.2 % (42.2-75.2); Absolute Basophils 0.1 10^3/uL (0-0.2); Absolute Eosinophils 0.4 10^3/uL (0-0.7); Absolute Immature Granulocytes 0.1 10^3/uL (0-0.05); Absolute Lymphocytes 1.1 10^3/uL (1.2-3.4); Absolute Neutrophils 8.5 10^3/uL (1.4-6.5); Hematocrit 34.8 % (39.0-52.0); Hemoglobin 11.8 g/dL (13.0-18.0); Mean Corp Hgb Conc. 33.9 g/dL (33.0-37.0); Mean Corpuscular Hgb 35.1 pg (27.0-31.0); Mean Corpuscular Volume 103.6 fL (80.0-94.0); Mean Platelet Volume 11.8 fL (7.4-10.4); Nucleated Red Blood Cells % 0 % (-); Platelet Count 385 10^3/uL (130-400); Red Blood Cell Count 3.36 10^6/uL (4.70-6.10); Red Cell Dist. Width 13.3 % (11.5-14.5); White Blood Cell Count 11.1 10^3/uL (4.8-10.8)
== END ==
LOC: HWLAB 11:40
PROVIDERS: ATTENDING PHYSICIAN Nurse Practitioner Family
DX: D72.829 Elevated white blood cell count, unspecified (principal)
CPT/HCPCS: 36415; 85025

== ENCOUNTER → 2024-07-12 12:23 | Outpatient (REF) | payer MEDICARE, SELFPAY ==
[2024-07-12 16:00] LABS: % Basophils 0.9 % (0-2); % Eosinophils 6.8 % (0-6); % Immature Granulocytes 0.3 % (0-0.5); % Lymphocytes 15.4 % (20.5-51.1); % Neutrophils 67.6 % (42.2-75.2); Absolute Basophils 0.1 10^3/uL (0-0.2); Absolute Eosinophils 0.5 10^3/uL (0-0.7); Absolute Lymphocytes 1.2 10^3/uL (1.2-3.4); Absolute Monocytes 0.7 10^3/uL (0.1-0.6); Absolute Neutrophils 5.1 10^3/uL (1.4-6.5); Hematocrit 35.3 % (39.0-52.0); Hemoglobin 11.8 g/dL (13.0-18.0); Mean Corp Hgb Conc. 33.4 g/dL (33.0-37.0); Mean Corpuscular Hgb 33.7 pg (27.0-31.0); Mean Corpuscular Volume 100.9 fL (80.0-94.0); Mean Platelet Volume 11.8 fL (7.4-10.4); Nucleated Red Blood Cells % 0 % (-); Platelet Count 242 10^3/uL (130-400); Red Cell Dist. Width 12.4 % (11.5-14.5); White Blood Cell Count 7.5 10^3/uL (4.8-10.8)
== END ==
LOC: HWLAB 12:23
PROVIDERS: ATTENDING PHYSICIAN Nurse Practitioner Family
DX: D72.829 Elevated white blood cell count, unspecified (principal)
CPT/HCPCS: 36415; 85025

== ENCOUNTER → 2024-09-04 08:01 | Outpatient (REF) | payer MEDICARE, SELFPAY | LOC: HWRAD 08:01 | PROVIDERS: ATTENDING PHYSICIAN Nurse Practitioner Family | DX: Z13.6 Encounter for screening for cardiovascular disorders (principal) | CPT/HCPCS: 76770 ==

== ENCOUNTER 2024-09-29 09:49 | Outpatient (RCR) | payer MEDICARE, SELFPAY | END 2024-09-29 23:59 | disposition home or self-care (01) | LOC: CRHB 09:49 | PROVIDERS: Internal Medicine Cardiovascular Disease; ATTENDING PHYSICIAN Nurse Practitioner | DX: I50.22 Chronic systolic (congestive) heart failure (principal) | CPT/HCPCS: G0422; G0423 ==

== ENCOUNTER 2024-10-27 10:34 | Outpatient (RCR) | payer MEDICARE, SELFPAY | END 2024-10-27 23:59 | disposition home or self-care (01) | LOC: CRHB 10:34 | PROVIDERS: Internal Medicine Cardiovascular Disease; Nurse Practitioner; ATTENDING PHYSICIAN Internal Medicine Cardiovascular Disease | DX: I50.22 Chronic systolic (congestive) heart failure (principal) | CPT/HCPCS: 93306; G0422; G0423 ==

== ENCOUNTER 2024-10-30 10:20 | Emergency (ER) | payer MEDICARE, SELFPAY ==
[2024-10-30] VITALS (16 sets, daily range): BP systolic 88–134; BP diastolic 48–75; PULSE 60–69; BMI 31.0
--- NOTE | 2024-10-30 10:43 | ED.GENMED ---
History of Present Illness
General
Chief Complaint: Fainting Sensation
Time Seen by Provider: 10/30/24 10:26
History of Present Illness
History of Present Illness:
Patient is a 69-year-old man with history of cardiac arrest secondary to V-fib with ICD placement in May 2024,CHF, A-fib on Xarelto presenting to the emergency with near syncope. Patient was at cardiac rehab using the arm bike when he became
lightheaded dizzy. They checked his blood pressure and it was in the 60s. Rapid response team was called and patient was brought to the emergency department. Patient states that since laying flat on the stretcher his symptoms have improved. He
does state that he did not eat much this morning. Per chart review patient initial EF was 30% however most recent echo on October 04 shows a EF of 62%. He denies any shocks to his heart. No missed doses of his Eliquis. He does state that he is
at his dry weight.
Past History
Past History
ED Past Medical History: HTN
ED Past Surgical History: None
Social History
Tobacco: Non-smoker
Alcohol: Daily
Phy Exam
Physical Exam
Physical Exam:
GENERAL: in no acute distress
HEENT: normocephalic, extraocular movements intact, moist oral mucosa
NECK: normal inspection
RESPIRATORY: no respiratory distress, clear to auscultation bilaterally
CARDIOVASCULAR: regular rate and rhythm
ABDOMEN/: soft, non-distended, non-tender to palpation, no rebound or guarding
EXTREMITIES: non-tender, mild pitting edema bilaterally
NEUROLOGIC: awake and alert, moves all extremities
SKIN: warm
Course
Orders/Labs/Results
Orders:
Orders
10/30/24 10:29
Electrocardiogram (*1) Urgent
Reason for Study: Vertigo / Dizzy
EKG- Treatment ONCE
10/30/24 10:33
pacemaker [Interrogate Pacemaker- Treatment] ONCE
10/30/24 10:34
CR Chest - 2 Views Urgent
Comment:
Reason For Exam: near syncope
10/30/24 10:38
Complete Blood Count/With Diff Urgent
Comprehensive Metabolic Panel Urgent
Magnesium Urgent
NT-proBNP Urgent
Comment: ADD ON
Troponin I Urgent
10/30/24 10:48
Add On- LAB Urgent
Tests Added?: pro- BNP
10/30/24 11:25
Orthostatic VS- Treatment ONCE
10/30/24 11:26
Lactated Ringers [Lr] 500 ml IV BOLUS
10/30/24 14:12
Magnesium Oxide 500 mg PO NOW STA
Abnormal Lab Results
10/30/24
10:38
RBC 4.15 L 10^6/uL
(4.70-6.10)
MCV 96.4 H fL
(80.0-94.0)
MCH 33.5 H pg
(27.0-31.0)
MPV 10.7 H fL
(7.4-10.4)
Absolute Neuts (auto) 7.2 H 10^3/uL
(1.4-6.5)
Neutrophils % 77.1 H %
(42.2-75.2)
Lymphocytes % 14.7 L %
(20.5-51.1)
Carbon Dioxide 21 L mmol/L
(22-30)
Magnesium 1.4 L mg/dl
(1.6-2.3)
10/30/24 10:38
10/30/24 10:38
Vital Signs
Initial and Last Documented VS:
Initial Vital Signs
Temp Pulse Resp BP Pulse Ox
97.8 F 62 16 89/53 94
10/30/24 10:22 10/30/24 10:22 10/30/24 10:22 10/30/24 10:22 10/30/24 10:22
Last Documented Vital Signs
Temp Pulse Resp BP Pulse Ox
97.8 F 75 16 122/74 93
10/30/24 10:22 10/30/24 14:45 10/30/24 14:45 10/30/24 14:30 10/30/24 14:45
MDM/Problems Addressed
Differential Diagnosis Includes:
Patient is a 69-year-old male with history of V-fib cardiac arrest in May 2024 with ICD placement, CHF, A-fib presenting to the emergency department with a near syncopal event at cardiac rehab. Vitals initially were notable for blood pressure
of systolic 80s however by the time I left the room blood pressure had improved to the 90s without any intervention. On exam he does have mild pitting edema. No significant crackles on lung auscultation. Given the near syncope occurred with
exertion concern for cardiac etiology such as valvular disease. Could be arrhythmia. Will check blood work as well as chest x-ray. EKG per my interpretation sinus rhythm. Will interrogate patient's pacemaker.
*Critical Care Note
Total Time (30-74mins, 75-104mins- exclusive of procedures): Not Applicable
Update Note
Update Note:
Patient's device without any arrhythmias since September. Blood pressure did improve with fluids. His blood work did show hypomagnesemia which I did replete. I did discuss with on-call cardiology who does state that patient is prone to
dehydration. Recommending checking orthostatics after fluids
Orthostatics were normal. Patient feels much better and is eager to go home. I did discuss with cardiology again to see if patient would benefit from admission possible repeat echo. However after discussion with cardiology patient with recent
echo in September with no significant valvular disease and he does have a defibrillator in place so comfortable with discharge home.
ED Attending Note
-
Portions of this chart may have been created with voice recognition software.� Occasional wrong word or��sound alike� substitutions may have occurred due to the inherent limitations of voice recognition software.
Discharge Plan
Departure
Patient Disposition: Home (Routine Discharge)
Date of Disposition: 10/30/24
Time of Disposition: 15:20
Patient with high blood pressure during this ER visit?: No
Discharge Problem:
Near syncope
Instructions: Near Fainting (DC)
Prescriptions:
No Action
therapeutic multivitamin Tablet
1 tab PO DAILY
Xarelto 20 mg Tablet
20 mg PO DAILY
magnesium oxide 200 mg magnesium Tablet
600 mg PO DAILY
carvedilol 6.25 mg Tablet
6.25 mg PO BID Qty: 60 0RF
atorvastatin 40 mg Tablet
40 mg PO QPM Qty: 30 0RF
lisinopril 5 mg Tablet
5 mg PO DAILY Qty: 30 0RF
Referrals:
Jin Mcdermott CRNP [Family Provider] -
Activity Restrictions/Additional Instructions:
You were seen in the Emergency Department today for getting lightheaded dizzy. While you were here we performed blood work, which was reassuring. Please make sure you increase your water intake as you likely were dehydrated.
We would like for you to follow up with your primary care physician for further evaluation. If you experience fever, worsening of your symptoms, or develop any other new or concerning symptoms, please return to the Emergency Department immediately.
Please see the attached sheet for additional information.
Interventions
Interventions:
*Risk Screen - Suicide Last Done: 10/30/24 10:22
*General Assessment Last Done: 10/30/24 10:22
*Neglect/Abuse Screening Last Done: 10/30/24 10:22
ED- Fall Risk Assessment Last Done: 10/30/24 10:22
*ED COVID-19 Vaccine History Last Done: 10/30/24 10:22
ED- Cardiac Assessment Last Done: 10/30/24 10:22
ED- Neurological Assessment Last Done: 10/30/24 10:22
Discharge Date and Time
Print Language: DANISH
[2024-10-30 10:45] LABS: % Basophils 0.5 % (0-2); % Eosinophils 2.4 % (0-6); % Immature Granulocytes 0.3 % (0-0.5); % Lymphocytes 14.7 % (20.5-51.1); % Neutrophils 77.1 % (42.2-75.2); Absolute Basophils 0.1 10^3/uL (0-0.2); Absolute Eosinophils 0.2 10^3/uL (0-0.7); Absolute Lymphocytes 1.4 10^3/uL (1.2-3.4); Absolute Monocytes 0.5 10^3/uL (0.1-0.6); Absolute Neutrophils 7.2 10^3/uL (1.4-6.5); Hemoglobin 13.9 g/dL (13.0-18.0); Mean Corp Hgb Conc. 34.8 g/dL (33.0-37.0); Mean Corpuscular Hgb 33.5 pg (27.0-31.0); Mean Corpuscular Volume 96.4 fL (80.0-94.0); Mean Platelet Volume 10.7 fL (7.4-10.4); Nucleated Red Blood Cells % 0 % (-); Platelet Count 227 10^3/uL (130-400); Red Blood Cell Count 4.15 10^6/uL (4.70-6.10); Red Cell Dist. Width 13.7 % (11.5-14.5); White Blood Cell Count 9.4 10^3/uL (4.8-10.8)
[2024-10-30 11:01] LABS: ALT (SGPT) 18 U/L (0-50); AST (SGOT) 25 U/L (17-59); Albumin 4.4 g/dl (3.5-5.0); Alkaline Phosphatase 81 U/L (38-126); Blood Urea Nitrogen 15 mg/dl (9-20); Calcium 9.5 mg/dl (8.4-10.2); Carbon Dioxide 21 mmol/L (22-30); Chloride 103 mmol/L (98-107); Estimated Creatinine Clearance 91 ml/min; Glucose 96 mg/dl (70-99); Magnesium 1.4 mg/dl (1.6-2.3); Potassium 4.3 mmol/L (3.5-5.1); Sodium 141 mmol/L (135-145); Total Bilirubin 0.7 mg/dl (0.2-1.3); Total Protein 6.7 g/dl (6.3-8.2); eGFR > 60.00
[2024-10-30 11:12] LABS: Troponin I < 0.012 ng/ml
[2024-10-30 11:32] LABS: NT-proBNP 151 pg/ml
[2024-10-30] MEDS: LR 500 IV (11:44)
[2024-10-30] MEDS: MAGNESIUM OXIDE 500 MG PO (14:22)
== END 2024-10-30 16:01 | disposition home or self-care (01) ==
LOC: EMR 10:20
PROVIDERS: EMERGENCY PHYSICIAN Student in an Organized Health Care Education/Training Program; FAMILY PHYSICIAN Nurse Practitioner Family
DX: R55 Syncope and collapse (principal); I48.91 Unspecified atrial fibrillation; Z79.01 Long term (current) use of anticoagulants
CPT/HCPCS: 99285; 71046; 80053; 83735; 83880; 84484; 85025; 93005

== ENCOUNTER 2024-11-27 10:04 | Outpatient (RCR) | payer MEDICARE, SELFPAY ==
[2024-10-30 10:10] LABS: Glucose - Point of Care 86 mg/dl (70-99)
== END 2024-11-27 23:59 | disposition home or self-care (01) ==
LOC: CRHB 10:04
PROVIDERS: ATTENDING PHYSICIAN Internal Medicine Cardiovascular Disease
DX: I50.22 Chronic systolic (congestive) heart failure (principal)
CPT/HCPCS: 82962; G0422; G0423

== ENCOUNTER 2024-12-06 09:30 | Outpatient (RCR) | payer MEDICARE, SELFPAY | END 2024-12-06 13:39 | disposition home or self-care (01) | LOC: CRHB 09:30 | PROVIDERS: ATTENDING PHYSICIAN Internal Medicine Cardiovascular Disease | DX: I50.22 Chronic systolic (congestive) heart failure (principal) | CPT/HCPCS: G0422; G0423 ==

== ENCOUNTER → 2025-02-13 15:35 | Outpatient (REF) | payer MEDICARE, SELFPAY ==
[2025-02-13 17:18] LABS: % Basophils 0.8 % (0-2); % Eosinophils 2.5 % (0-6); % Immature Granulocytes 0.3 % (0-0.5); % Lymphocytes 12.3 % (20.5-51.1); % Monocytes 8.8 % (1.7-9.3); % Neutrophils 75.3 % (42.2-75.2); Absolute Basophils 0.1 10^3/uL (0-0.2); Absolute Eosinophils 0.2 10^3/uL (0-0.7); Absolute Monocytes 0.7 10^3/uL (0.1-0.6); Hematocrit 40.9 % (39.0-52.0); Hemoglobin 14.1 g/dL (13.0-18.0); Mean Corp Hgb Conc. 34.5 g/dL (33.0-37.0); Mean Corpuscular Hgb 34.8 pg (27.0-31.0); Mean Platelet Volume 12.1 fL (7.4-10.4); Nucleated Red Blood Cells % 0 % (-); Platelet Count 147 10^3/uL (130-400); Red Blood Cell Count 4.05 10^6/uL (4.70-6.10); Red Cell Dist. Width 13.1 % (11.5-14.5)
[2025-02-13 17:35] LABS: ALT (SGPT) 115 U/L (0-50); AST (SGOT) 84 U/L (17-59); Albumin 4.5 g/dl (3.5-5.0); Alkaline Phosphatase 64 U/L (38-126); Blood Urea Nitrogen 15 mg/dl (9-20); Calcium 9.8 mg/dl (8.4-10.2); Carbon Dioxide 30 mmol/L (22-30); Chloride 99 mmol/L (98-107); Direct Bilirubin 0.3 mg/dl (0.0-0.4); Glucose 90 mg/dl (70-99); Iron 134 ug/dl (49-181); Magnesium 1.3 mg/dl (1.6-2.3); Potassium 4.4 mmol/L (3.5-5.1); Sodium 135 mmol/L (135-145); Total Bilirubin 1.7 mg/dl (0.2-1.3); Total Protein 7.2 g/dl (6.3-8.2); eGFR > 60.00
[2025-02-13 17:44] LABS: Percent Saturation 58 % (20-50); Total Iron Binding Capacity 230 ug/dl (261-462)
[2025-02-13 18:06] LABS: PSA, Total - Diagnostic < 0.06 ng/ml (0.0-4.0); TSH Reflex To Free T4 1.97 uIU/ml (0.47-4.68)
[2025-02-13 18:25] LABS: Vitamin B12 319 pg/ml (239-931)
== END ==
LOC: REG 15:35
PROVIDERS: ATTENDING PHYSICIAN Nurse Practitioner Family; REFERRING PHYSICIAN Nurse Practitioner
DX: Z00.00 Encounter for general adult medical examination without abnormal findings (principal); I50.20 Unspecified systolic (congestive) heart failure; I42.9 Cardiomyopathy, unspecified; Z86.74 Personal history of sudden cardiac arrest; E66.9 Obesity, unspecified; D64.9 Anemia, unspecified; R17 Unspecified jaundice; F10.11 Alcohol abuse, in remission; I48.0 Paroxysmal atrial fibrillation; I45.81 Long QT syndrome; Z85.46 Personal history of malignant neoplasm of prostate; Z13.6 Encounter for screening for cardiovascular disorders; Z12.11 Encounter for screening for malignant neoplasm of colon; Z13.31 Encounter for screening for depression; D51.9 Vitamin B12 deficiency anemia, unspecified
CPT/HCPCS: 36415; 80053; 82248; 82607; 82728; 83540; 83550; 83735; 84153; 84443; 85025

== ENCOUNTER → 2025-02-14 06:36 | Outpatient (REF) | payer MEDICARE, SELFPAY ==
[2025-02-14 10:41] LABS: HDL Cholesterol 103 mg/dl; LDL Cholesterol, Calculated 50 mg/dl; Total Cholesterol 162 mg/dl (50-199); Triglyceride 47 mg/dl (10-149); Very Low Density Lipoprotein 9 mg/dl (0-30)
== END ==
LOC: HWLAB 06:36
PROVIDERS: ATTENDING PHYSICIAN Nurse Practitioner Family
DX: I50.20 Unspecified systolic (congestive) heart failure (principal); I42.9 Cardiomyopathy, unspecified; I48.0 Paroxysmal atrial fibrillation
CPT/HCPCS: 36415; 80061